=== PATIENT | female | born 1995 | race Caucasian/White ===

== ENCOUNTER → 2017-11-15 10:54 | Outpatient (CLI) | payer BC, SELFPAY | PROVIDERS: Family Provider Family Medicine; PCP Family Medicine; Visit Provider Otolaryngology Otolaryngology/Facial Plastic Surgery | DX: Z77.011 Contact with and (suspected) exposure to lead (principal) | CPT/HCPCS: 36415; 83655 ==

== ENCOUNTER → 2018-01-05 11:39 | Outpatient (CLI) | payer BC, SELFPAY ==
[2018-01-05 14:46] LABS: Absolute Lymphocyte Count 2.64 X10^3/ul (0.83-4.51); Absolute Neutrophil Count 4.1 X10^3/uL (2.0-7.7); Basophil# 0.06 X10^3/uL; Basophil% 0.8 % (0-1); Eosinophil# 0.31 X10^3/uL; Hemoglobin 12.4 g/dl (12.0-15.0); Lymphocyte # 2.64 X10^3/ul (4.0); Lymphocyte % 34.1 % (19-41); Mean Corp Hgb Conc 33.5 g/gl (32-36); Mean Corpuscular Hgb 25.7 pg (27.0-32.0); Mean Corpuscular Volume 76.6 fL (81-99); Mean Platelet Vol. 11.4 fl (6.2-12.0); Monocyte# 0.63 X10^3/uL; Monocyte% 8.1 % (0-10); Neutrophil # 4.09 X10^3/uL (2.7-7.7); Neutrophil % 52.9 % (47-70); Platelet Count 337 K/mm3 (150-450); RBC Distribution Width CV 14.9 % (11.6-14.6); RBC Distribution Width SD 40.6 fl (35.1-43.9); Red Blood Count 4.83 M/mm3 (4.2-5.4); White Blood Count 7.7 K/mm3 (4.4-11.0)
[2018-01-05 14:50] LABS: Differential Indicated SCAN CRITERIA MET; POSITIVE COUNT NO; POSITIVE DIFFERENTIAL NO; POSITIVE MORPHOLOGY YES
[2018-01-05 15:17] LABS: AST(SGOT) 16 U/L (15-37); Alanine Aminotransfer ALT/SGPT 20 U/L (13-56); Alkaline Phosphatase 79 U/L (45-117); Anion Gap 11 (5-15); BUN 9 mg/dL (7-18); Calcium,Total 9.2 mg/dL (8.5-10.1); Chloride 105 mmol/L (98-107); Creatinine, Serum 0.75 mg/dL (0.55-1.02); EST Glomerular Filtration Rate 103 mL/min (>60); Est Glom Filt Rate - Afr Amer 125 mL/min (>60); Glucose 86 mg/dL (74-106); Potassium 4.2 mmol/L (3.5-5.1); Sodium Level 140 mmol/L (136-145); T4 Free Direct 0.77 ng/dL (0.76-1.46); Thyroid Stim Hormone (TSH) 0.79 uIU/mL (0.358-3.74)
[2018-01-06 09:23] LABS: Ferritin 5 ng/mL (8-252); Iron 38 ug/dL (50-170); Iron Binding Capacity,Total 379 ug/dL (250-450)
[2018-01-06 14:32] LABS: Pathologist Review Reviewed
== END ==
PROVIDERS: Family Provider Family Medicine; PCP Family Medicine; Visit Provider Family Medicine
DX: R71.8 Other abnormality of red blood cells (principal); K62.5 Hemorrhage of anus and rectum; Z83.49 Family history of other endocrine, nutritional and metabolic diseases; F41.9 Anxiety disorder, unspecified
CPT/HCPCS: 36415; 80053; 82728; 83540; 83550; 84439; 84443; 85025

== ENCOUNTER → 2018-01-25 16:38 | Outpatient (CLI) | payer BC, SELFPAY ==
[2018-01-25 17:43] LABS: Absolute Lymphocyte Count 2.81 X10^3/ul (0.83-4.51); Absolute Neutrophil Count 3.6 X10^3/uL (2.0-7.7); Basophil# 0.05 X10^3/uL; Basophil% 0.7 % (0-1); Eosinophil# 0.36 X10^3/uL; Hematocrit 37.3 % (37-47); Hemoglobin 12.2 g/dl (12.0-15.0); Lymphocyte # 2.81 X10^3/ul (4.0); Lymphocyte % 39.1 % (19-41); Mean Corp Hgb Conc 32.7 g/gl (32-36); Mean Corpuscular Hgb 25.5 pg (27.0-32.0); Mean Corpuscular Volume 77.9 fL (81-99); Mean Platelet Vol. 10.8 fl (6.2-12.0); Monocyte# 0.33 X10^3/uL; Monocyte% 4.6 % (0-10); Neutrophil # 3.64 X10^3/uL (2.7-7.7); Neutrophil % 50.6 % (47-70); Platelet Count 354 K/mm3 (150-450); RBC Distribution Width CV 14.6 % (11.6-14.6); Red Blood Count 4.79 M/mm3 (4.2-5.4); White Blood Count 7.2 K/mm3 (4.4-11.0)
[2018-01-25 17:46] LABS: POSITIVE COUNT NO; POSITIVE DIFFERENTIAL NO; POSITIVE MORPHOLOGY NO
[2018-01-25 18:16] LABS: Ferritin 10 ng/mL (8-252); Iron 24 ug/dL (50-170); Iron Binding Capacity,Total 379 ug/dL (250-450)
== END ==
PROVIDERS: Family Provider Family Medicine; PCP Family Medicine; Referring Provider Family Medicine; Visit Provider Family Medicine
DX: E61.1 Iron deficiency (principal)
CPT/HCPCS: 36415; 82728; 83540; 83550; 85025

== ENCOUNTER → 2018-02-21 09:10 | Outpatient (CLI) | payer BC, SELFPAY ==
[2018-02-22 14:52] LABS: HPV Reflexed? NOT INDICATED
== END ==
PROVIDERS: Visit Provider Obstetrics & Gynecology
DX: Z12.4 Encounter for screening for malignant neoplasm of cervix (principal)
CPT/HCPCS: 88175; G0145

== ENCOUNTER → 2018-02-22 16:57 | Outpatient (CLI) | payer BC, SELFPAY ==
[2018-02-22 18:03] LABS: Absolute Lymphocyte Count 2.86 X10^3/ul (0.83-4.51); Absolute Neutrophil Count 4.2 X10^3/uL (2.0-7.7); Basophil# 0.07 X10^3/uL; Basophil% 0.9 % (0-1); Eosinophil# 0.42 X10^3/uL; Eosinophils% 5.3 % (0-5); Hematocrit 37.8 % (37-47); Hemoglobin 12.6 g/dl (12.0-15.0); Lymphocyte # 2.86 X10^3/ul (4.0); Lymphocyte % 35.8 % (19-41); Mean Corp Hgb Conc 33.3 g/gl (32-36); Mean Corpuscular Hgb 26.1 pg (27.0-32.0); Mean Corpuscular Volume 78.3 fL (81-99); Mean Platelet Vol. 10.8 fl (6.2-12.0); Monocyte# 0.39 X10^3/uL; Monocyte% 4.9 % (0-10); Neutrophil # 4.24 X10^3/uL (2.7-7.7); Platelet Count 341 K/mm3 (150-450); RBC Distribution Width CV 14.5 % (11.6-14.6); RBC Distribution Width SD 41.2 fl (35.1-43.9); Red Blood Count 4.83 M/mm3 (4.2-5.4)
[2018-02-22 18:14] LABS: POSITIVE COUNT NO; POSITIVE DIFFERENTIAL NO; POSITIVE MORPHOLOGY NO
[2018-02-22 18:42] LABS: Ferritin 10 ng/mL (8-252); Iron 26 ug/dL (50-170); Iron Binding Capacity,Total 345 ug/dL (250-450)
== END ==
PROVIDERS: Visit Provider Family Medicine
DX: E61.1 Iron deficiency (principal)
CPT/HCPCS: 36415; 82728; 83540; 83550; 85025

== ENCOUNTER → 2018-03-01 13:28 | Outpatient (CLI) | payer BC, SELFPAY ==
[2018-03-01 18:11] LABS: Chlamydia Trachomatis by PCR Negative (Negative); Neisserai gonorrhoeae by PCR Negative (Negative); Probe Check PASS; Sample Adequacy Control PASS; Specimen Processing Control PASS
== END ==
PROVIDERS: Visit Provider Obstetrics & Gynecology
DX: Z11.3 Encounter for screening for infections with a predominantly sexual mode of transmission (principal)
CPT/HCPCS: 87491; 87591

== ENCOUNTER → 2018-05-18 15:35 | Outpatient (CLI) | payer BC, SELFPAY ==
[2018-05-18 17:56] LABS: Ferritin 9 ng/mL (8-252); Iron 32 ug/dL (50-170); Iron Binding Capacity,Total 378 ug/dL (250-450)
--- OUTSIDE RECORDS SUMMARY | 2018-07-23 14:59 | XMS RPT_ITS ---
:1995 Author Organization OHIP Care Team Providers Name Role Phone Darek Mitchell Attending Unavailable Darek Mitchell Referring Unavailable Schinjody, Darek E Primary Care Unavailable Misha Perkins Attending Unavailable Misha Perkins Referring Unavailable Alex Olivarez Primary Care Unavailable Schinjody, Darek Valdez Attending Unavailable Schinjody, Darek Valdez Referring Unavailable Schinjody, Darek E Primary Care Unavailable Schinjody, Darek E Attending Unavailable Schinner, Darek E Referring Unavailable Schinjody, Darek Valdez Primary Care Unavailable Volodymyr Mejía Attending Unavailable Schinner, Darek Valdez Attending Unavailable Seals, Volodymyr Attending Unavailable PROBLEMS PROBLEMS DATE TYPE CONDITION / CODE ATTENDING STATUS SOURCE 03/01/2018 Unknown Z11.3 - Encounter Volodymyr Mejía Active [place] for screening for Community infections with a Hospital predominantly Repository sexual mode of transmission / Z11.3(ICD-10) 02/21/2018 Unknown Z12.4 - Encounter Volodymyr Mejía Active [place] for screening for Community malignant neoplasm [facility] cervix / Repository Z12.4(ICD-10) 01/07/2018 Unknown F41.9 - Anxiety Darek Mitchell Active [place] disorder, E Community unspecified / Hospital F41.9(ICD-10) Repository 01/07/2018 Unknown 300.00 - Anxiety Darek Mitchell Active [place] state, unspecified E Community / 300.00(ICD-9) Hospital Repository 01/07/2018 Unknown Z83.49 - Family Darek Mitchell Active [place] history of other E Community endocrine, Hospital nutritional and Repository metabolic diseases / Z83.49(ICD-10) 01/07/2018 Unknown V18.19 - Family Darek Mitchell Active [place] history of other E Community endocrine and Hospital metabolic diseases Repository / V18.19(ICD-9) 11/15/2017 Unknown Z77.011 - Contact Maddie Misha Active [place] with and Community (suspected) Hospital exposure to lead / Repository Z77.011(ICD-10) PROCEDURES PROCEDURES No Procedure Records FoundRESULTS RESULTS IRON BINDING Collected: 05/18/2018 Status: F Source: [facility],TOTAL 3:[facility] Order Comment: Order Date: 01/06/18 Order Info: 2500-7 - TIBC Order Info: 2498-4 - FE Order Info: 2276-4 - GE TYPE CODE TESTS RESULT OUT OF RANGE REFERENCE UNITS LAB L503.6075 250-450 ug/dL Normal TIBC 378 Performed By: #### L503.6075, L503.6150, L503.6550 #### [facility] [address] [place], [place], [address] IRON Collected: 05/18/2018 Status: F Source: [facility] 3:41 PM REPOSITORY Order Comment: Order Date: 01/06/18 Order Info: 2500-7 - TIBC Order Info: 2498-4 - FE Order Info: 2276-4 - GE TYPE CODE TESTS RESULT OUT OF RANGE REFERENCE UNITS LAB L503.6150 50-170 ug/dL Low IRON 32 Performed By: #### L503.6075, L503.6150, L503.6550 #### [facility] [address] [place], [address] FERRITIN Collected: 05/18/2018 Status: F Source: [facility] 3:41 PM REPOSITORY Order Comment: Order Date: 01/06/18 Order Info: 2500-7 - TIBC Order Info: 2498-4 - FE Order Info: 2276-4 - GE TYPE CODE TESTS RESULT OUT OF RANGE REFERENCE UNITS LAB L503.6550 8-252 ng/mL Normal FERRITIN 9 Performed By: #### L503.6075, L503.6150, L503.6550 #### [facility] [address] [place], [place], [address] CT/NG WCH BY PCR Collected: 03/01/2018 Status: F Source: [facility] 11:15 AM REPOSITORY TYPE CODE TESTS RESULT OUT OF RANGE REFERENCE UNITS LAB L8200.2100 Negative Normal Chlam Negative Trac PCR LAB L8200.2200 Negative Normal NG by Negative PCR Performed By: #### L8200.2000 #### [facility] [address] [place], [address] CBC W/DIFF, AUTOMATED Collected: 02/22/2018 Status: F Source: [place] 4:58 PM REPOSITORY TYPE CODE TESTS RESULT OUT OF RANGE REFERENCE UNITS LAB L100.1000 4.4-11.0 K/mm3 Normal WBC 8.0 LAB L100.1200 4.2-5.4 M/mm3 Normal RBC 4.83 LAB L100.1300 12.0-15.0 g/dl Normal HGB 12.6 LAB L100.1400 37-47 % Normal HCT 37.8 LAB L100.1500 81-99 fL Low MCV 78.3 LAB L100.1600 27.0-32.0 pg Low MCH 26.1 LAB L100.1700 32-36 g/gl Normal MCHC 33.3 LAB L100.1810 11.6-14.6 % Normal RDW CV 14.5 LAB L100.1820 35.1-43.9 fl Normal RDW SD 41.2 LAB L100.1900 150-450 K/mm3 Normal PLT 341 LAB L100.2000 6.2-12.0 fl Normal MPV 10.8 LAB L100.2100 47-70 % Normal NEUT% 53.0 LAB L100.2200 19-41 % Normal LY% 35.8 LAB L100.2300 0-10 % Normal MONO% 4.9 LAB L100.2400 0-5 % High EO% 5.3 LAB L100.2500 0-1 % Normal BASO% 0.9 LAB L100.2550 0.0-0.9 % Normal IM GRAN % 0.100 Result Comment: IG% - Immature Granulocytes (promyelocytes, myelocytes and metamyelocytes) > 1% indicates that a LEFT SHIFT is Present. LAB L100.2620 2.0-7.7 X10 3/uL Normal Absolute Neut 4.2 LAB L100.2720 0.83-4.51 X10 3/ul Normal Absolute Lymph 2.86 Performed By: #### L100.0100, L503.6075, L503.6150, L503.6550 #### [facility] [address] [place], [place], [address] IRON BINDING Collected: 02/22/2018 Status: F Source: [facility],TOTAL 4:58 PM REPOSITORY TYPE CODE TESTS RESULT OUT OF RANGE REFERENCE UNITS LAB L503.6075 250-450 ug/dL Normal TIBC 345 Performed By: #### L100.0100, L503.6075, L503.6150, L503.6550 #### [facility] [address] [place], [address] IRON Collected: 02/22/2018 Status: F Source: [place] 4:58 PM REPOSITORY TYPE CODE TESTS RESULT OUT OF RANGE REFERENCE UNITS LAB L503.6150 50-170 ug/dL Low IRON 26 Performed By: #### L100.0100, L503.6075, L503.6150, L503.6550 #### [facility] [address] [place], [address] FERRITIN Collected: 02/22/2018 Status: F Source: [place] 4:58 PM REPOSITORY TYPE CODE TESTS RESULT OUT OF RANGE REFERENCE UNITS LAB L503.6550 8-252 ng/mL Normal FERRITIN 10 Performed By: #### L100.0100, L503.6075, L503.6150, L503.6550 #### [facility] [address] [place], [address] PAP I-G W/RFX HRHPV Collected: 02/21/2018 Status: F Source: [facility] 8:30 AM REPOSITORY Order Comment: CYTOLOGY INFORMATION: - CLINICAL INFORMATION: - DATE LMP/MENOPAUSE: NURSING LMP - COLLECTION VIAL: Thin Prep Vial - RETAIL TEAM MEMBER SOURCE: CERVICAL/ENDOCERVICAL - COLLECTION TECHNIQUE: BRUSH/SPATULA Specimen Comment: [id number] Specimen Comment: Source.............Cervix;Endocervix Specimen Comment: Other..............Lactating Specimen Comment: No. of containers..01 ThinPrep Vial TYPE CODE TESTS RESULT OUT OF RANGE REFERENCE UNITS LAB L7400.0800 . Normal DIAGN Comment Result Comment: NEGATIVE FOR INTRAEPITHELIAL LESION AND MALIGNANCY. LAB L7400.0900 . Normal ADEQ Comment Result Comment: Satisfactory for evaluation. Endocervical and/or squamous metaplastic cells (endocervical component) are present. LAB L7400.1400 . Normal PERFORM Comment Result Comment: Andreas Johnson, Personnel Scheduler (ASCP) LAB L7400.2575 . Normal TEST METHOD Comment Result Comment: This liquid based ThinPrep(R) pap test was screened with the use of an image guided system. LAB L7400.2600 . Normal . COMM LAB L7400.2700 . Normal PAPSMR Comment Result Comment: The Pap smear is a screening test designed to aid in the detection of premalignant and malignant conditions of the uterine cervix. It is not a diagnostic procedure and should not be used as the sole means of detecting cervical cancer. Both false-positive and false-negative reports do occur. LAB L7400.2800 . Normal HPV RFLX Comment Result Comment: The HPV DNA reflex criteria were not met with this specimen result therefore, no HPV testing was performed. Performed at: [facility] [address] [id number] Assistant Film Editor: Lisseth Valdez MD, Phone: [phone] Performed By: #### L7400.0350 #### [facility] (refer to report for specific site) refer to report for address and phone number CBC W/DIFF, AUTOMATED Collected: 01/25/2018 Status: F Source: [place] 4:41 PM REPOSITORY TYPE CODE TESTS RESULT OUT OF RANGE REFERENCE UNITS LAB L100.1000 4.4-11.0 K/mm3 Normal WBC 7.2 LAB L100.1200 4.2-5.4 M/mm3 Normal RBC 4.79 LAB L100.1300 12.0-15.0 g/dl Normal HGB 12.2 LAB L100.1400 37-47 % Normal HCT 37.3 LAB L100.1500 81-99 fL Low MCV 77.9 LAB L100.1600 27.0-32.0 pg Low MCH 25.5 LAB L100.1700 32-36 g/gl Normal MCHC 32.7 LAB L100.1810 11.6-14.6 % Normal RDW CV 14.6 LAB L100.1820 35.1-43.9 fl Normal RDW SD 41.0 LAB L100.1900 150-450 K/mm3 Normal PLT 354 LAB L100.2000 6.2-12.0 fl Normal MPV 10.8 LAB L100.2100 47-70 % Normal NEUT% 50.6 LAB L100.2200 19-41 % Normal LY% 39.1 LAB L100.2300 0-10 % Normal MONO% 4.6 LAB L100.2400 0-5 % Normal EO% 5.0 LAB L100.2500 0-1 % Normal BASO% 0.7 LAB L100.2550 0.0-0.9 % Normal IM GRAN % 0.000 Result Comment: IG% - Immature Granulocytes (promyelocytes, myelocytes and metamyelocytes) > 1% indicates that a LEFT SHIFT is Present. LAB L100.2620 2.0-7.7 X10 3/uL Normal Absolute Neut 3.6 LAB L100.2720 0.83-4.51 X10 3/ul Normal Absolute Lymph 2.81 Performed By: #### L100.0100, L503.6075, L503.6150, L503.6550 #### [facility] [address] [place], [place], [address] IRON BINDING Collected: 01/25/2018 Status: F Source: [facility],TOTAL 4:41 PM REPOSITORY TYPE CODE TESTS RESULT OUT OF RANGE REFERENCE UNITS LAB L503.6075 250-450 ug/dL Normal TIBC 379 Performed By: #### L100.0100, L503.6075, L503.6150, L503.6550 #### [facility] [address] [place], [place], [address] IRON Collected: 01/25/2018 Status: F Source: [place] 4:41 PM REPOSITORY TYPE CODE TESTS RESULT OUT OF RANGE REFERENCE UNITS LAB L503.6150 50-170 ug/dL Low IRON 24 Performed By: #### L100.0100, L503.6075, L503.6150, L503.6550 #### [facility] [address] [place], [place], [address] FERRITIN Collected: 01/25/2018 Status: F Source: [place] 4:41 PM REPOSITORY TYPE CODE TESTS RESULT OUT OF RANGE REFERENCE UNITS LAB L503.6550 8-252 ng/mL Normal FERRITIN 10 Performed By: #### L100.0100, L503.6075, L503.6150, L503.6550 #### [facility] [address] [place], [place], [address] CBC W/DIFF, AUTOMATED Collected: 01/05/2018 Status: C Source: [facility] 11:43 AM REPOSITORY TYPE CODE TESTS RESULT OUT OF RANGE REFERENCE UNITS LAB L100.1000 4.4-11.0 K/mm3 Normal WBC 7.7 LAB L100.1200 4.2-5.4 M/mm3 Normal RBC 4.83 LAB L100.1300 12.0-15.0 g/dl Normal HGB 12.4 LAB L100.1400 37-47 % Normal HCT 37.0 LAB L100.1500 81-99 fL Low MCV 76.6 LAB L100.1600 27.0-32.0 pg Low MCH 25.7 LAB L100.1700 32-36 g/gl Normal MCHC 33.5 LAB L100.1810 11.6-14.6 % High RDW CV 14.9 LAB L100.1820 35.1-43.9 fl Normal RDW SD 40.6 LAB L100.1900 150-450 K/mm3 Normal PLT 337 LAB L100.2000 6.2-12.0 fl Normal MPV 11.4 LAB L100.2100 47-70 % Normal NEUT% 52.9 LAB L100.2200 19-41 % Normal LY% 34.1 LAB L100.2300 0-10 % Normal MONO% 8.1 LAB L100.2400 0-5 % Normal EO% 4.0 LAB L100.2500 0-1 % Normal BASO% 0.8 LAB L100.2550 0.0-0.9 % Normal IM GRAN % 0.100 Result Comment: IG% - Immature Granulocytes (promyelocytes, myelocytes and metamyelocytes) > 1% indicates that a LEFT SHIFT is Present. LAB L100.2620 2.0-7.7 X10 3/uL Normal Absolute Neut 4.1 LAB L100.2720 0.83-4.51 X10 3/ul Normal Absolute Lymph 2.64 LAB L100.5200 SMUDG Normal Result Comment: SCANNED LAB L100.9900 Normal Reviewed PATH REV Result Comment: Microcytosis. Clinical correlation necessary. Ben Aguilar M.D. 01/06/18 AMENDED REPORT 01/06/18 1431 PATH REV previously reported as: May foll Performed By: #### L100.0100, L500.4050, L501.9520, L506.0400 #### [facility] [address] [place], [address] COMPREHENSIVE METABOLIC Collected: 01/05/2018 Status: F Source: [facility] ALBERTO 11:43 AM REPOSITORY Order Comment: PLEASE ADD IBC AND GE TO BLOOD DRAWN 01/05/18 PER Order Date: 01/04/18 Order Info: 0786-1 - CMP Order Info: 3016-3 - TSH Order Info: 3024-7 - T4F TYPE CODE TESTS RESULT OUT OF RANGE REFERENCE UNITS LAB L501.0100 74-106 mg/dL Normal GLU 86 Result Comment: Please note revised GLUCOSE reference range effective 2017. LAB L501.1000 7-18 mg/dL Normal BUN 9 LAB L501.1100 0.55-1.02 mg/dL Normal CREAT,SERUM 0.75 Result Comment: The validity of the calculated GFR AND GFRAA in patients over 70 years has not been determined. Clinical correlation is essential. LAB L501.1110 >60 mL/min Normal EST GFR 103 Result Comment: Non- GFR Calc LAB L501.1115 >60 mL/min Normal EST GFR - AA 125 Result Comment: GFR Calc LAB L501.1300 10-20 RATIO Normal BUN/CRE 12.0 LAB L501.1500 6.4-8.2 g/dL T Normal PROT 8.0 LAB L501.1800 3.2-5.0 g/dL Normal ALB 4.0 LAB L501.1950 2.2-4.2 g/dL Normal GLOB 4.0 LAB L501.2000 0.9-2.4 RATIO Normal A/G 1.0 LAB L501.2200 8.5-10.1 mg/dL CA Normal 9.2 LAB L501.4100 15-37 U/L Normal AST 16 LAB L501.4305 45-117 U/L Normal ALK P 79 LAB L501.4405 13-56 U/L Normal ALT 20 LAB L501.4600 0.20-1.00 mg/dL T Normal BILI 0.20 LAB L501.5300 136-145 mmol/L NA Normal 140 LAB L501.5600 3.5-5.1 mmol/L K Normal 4.2 LAB L501.5900 98-107 mmol/L CL Normal 105 LAB L501.6100 21.0-32.0 mmol/L Normal CO2 24.0 LAB L501.6200 5-15 Normal GAP 11 Performed By: #### L100.0100, L500.4050, L501.9520, L506.0400 #### [facility] [address] [place], [address] THYROID STIM HORMONE Collected: 01/05/2018 Status: F Source: [facility] (TSH) 11:43 AM REPOSITORY Order Comment: PLEASE ADD IBC AND GE TO BLOOD DRAWN 01/05/18 PER Order Date: 01/04/18 Order Info: 0786-1 - CMP Order Info: 3016-3 - TSH Order Info: 3024-7 - T4F TYPE CODE TESTS RESULT OUT OF RANGE REFERENCE UNITS LAB L501.9520 0.358-3.74 uIU/mL Normal TSH 0.79 Performed By: #### L100.0100, L500.4050, L501.9520, L506.0400 #### [facility] [address] [place], [address] T4 FREE DIRECT Collected: 01/05/2018 Status: F Source: [facility] 11:43 AM REPOSITORY Order Comment: PLEASE ADD IBC AND GE TO BLOOD DRAWN 01/05/18 PER Order Date: 01/04/18 Order Info: 0786-1 - CMP Order Info: 3016-3 - TSH Order Info: 3024-7 - T4F TYPE CODE TESTS RESULT OUT OF RANGE REFERENCE UNITS LAB L506.0400 0.76-1.46 ng/dL Normal T4 FREE 0.77 DIRECT Performed By: #### L100.0100, L500.4050, L501.9520, L506.0400 #### [facility] [address] [place], [address] IRON+IRON BINDING Collected: 01/05/2018 Status: F Source: [facility] 11:43 AM REPOSITORY Order Comment: PLEASE ADD IBC AND GE TO BLOOD DRAWN 01/05/18 PER Order Date: 01/04/18 Order Info: 0786-1 - CMP Order Info: 3016-3 - TSH Order Info: 3024-7 - T4F TYPE CODE TESTS RESULT OUT OF RANGE REFERENCE UNITS LAB L503.6075 250-450 ug/dL TIBC Normal 379 LAB L503.6150 50-170 ug/dL Low IRON 38 LAB L503.6250 15.0-55.0 % Low IRON SATURATION 10.0 Performed By: #### L503.6030, L503.6550 #### [facility] [address] [place], [place], [address] FERRITIN Collected: 01/05/2018 Status: F Source: [facility] 11:43 AM REPOSITORY Order Comment: PLEASE ADD IBC AND GE TO BLOOD DRAWN 01/05/18 PER Order Date: 01/04/18 Order Info: 0786-1 - CMP Order Info: 3016-3 - TSH Order Info: 3024-7 - T4F TYPE CODE TESTS RESULT OUT OF REFERENCE UNITS RANGE LAB L503.6550 8-252 ng/mL Low FERRITIN 5 Performed By: #### L503.6030, L503.6550 #### [facility] [address] [place], [place], [address] LEAD, BLOOD ADULT Collected: 11/15/2017 Status: F Source: [facility] 16+YRS 10:59 AM REPOSITORY TYPE CODE TESTS RESULT OUT OF RANGE REFERENCE UNITS LAB L3100.6450 Normal LEAD *Form Result Comment: TEST RESULT UNITS REFERENCE INTERVAL LEAD, BLOOD (ADULT) NONE DETECTED ug/dL 0 - 19 Analysis by inductively coupled plasma/mass spectrometry (ICP/MS) Effective December 06, 2017 the reference interval for Lead, Blood (Adult) will be changing to: 0 - 4 Environmental Exposure: WHO Recommendation <20 Occupational Exposure: OSHA Lead Std 40 VONNIE 30 Detection Limit = 1 Performed at: [address] [id number] Assistant Film Editor: Scott Sainz PhD, Phone: [phone] Performed By: #### L3100.6450 #### [facility] (refer to report for specific site) refer to report for address and phone number ALLERGIES ALLERGIES DATE TYPE / CODE NAME / CODE REACTION SEVERITY SOURCE 10/19/2016 Drug No Known Unknown [place] Allergy/4160 Allergies/F00 Hospital 11102(SNOMED 1349069(RXNOR Repository CT) M) ENCOUNTERS ENCOUNTERS ADMIT/DISCHARGE ACCOUNT ADMITTING ENCOUNTER LOCATION SOURCE NUMBER CLASS 05/18/2018 [id number] Ambulatory [place] 8 [facility] ing:MTLAB Repository 03/01/2018 [id number] Ambulatory [place] 5 [facility] ing:LABSPEC Repository 02/22/2018 [id number] Ambulatory [place] 8 [facility] ing:MFPLAB Repository 02/21/2018 [id number] Ambulatory [place] 5 [facility] ing:LABSPEC Repository 01/25/2018 [id number] Ambulatory [place] 9 [facility] ing:MTLAB Repository 01/05/2018 [id number] Ambulatory [place] 4 [facility] ing:MTLAB Repository 11/15/2017 [id number] Ambulatory [place] 7 [facility] ing:LAB Repository PAYERS PAYERS ENCOUNTER GUARANTOR PAYER SUBSCRIBER SOURCE 05/18/2018 ED [id number] Primary YAYO J [place] N [place] Insurance:ANTHEMPolic YOHODOB: [facility] Number: [id number] Hospital [address]Oqr: 330 [id number] Repository [phone] () Date:[id number] [address]OU: 05/18/2018 Secondary NOT GIVENUNK [place] Insurance:SELF PAY [facility] Number: Effective Repository Date:2018-05-18 03/01/2018 ED LAMB852 Primary YAYO J [place] N [place] Insurance:ANTHEMPolic YOHODOB: [facility] Number: [id number] Hospital [address]Wua: 330 [id number] Repository [phone] () Date:[id number] [address] [place] [address] [place] [address]SV: 03/01/2018 Secondary NOT GIVENUNK [place] Insurance:SELF PAY [facility] Number: Effective Repository Date:2018-03-01 02/22/2018 ED FLORESHO852 Primary YAYO J [place] Insurance:ANTHEMPolic [place] Number: [id number] Hospital [address]Viy: (330) [id number] Repository [phone] () Date:8219-17-73LW [address] [place] [address] [place] [address]HG: 02/22/2018 Secondary NOT GIVENUNK [place] Insurance:SELF PAY [facility] Number: Effective Repository Date:2018-02-22 02/21/2018 ED FLORESHO852 Primary YAYO Bill [place] N [place] Insurance:ANTHEMPolic [place] Number: [id number] [facility] [address]Ziv: (330) [id number] Repository [phone] () Date:[id number] [address] [place] [address] [place] [address]RA: 02/21/2018 Secondary NOT GIVENUNK [place] Insurance:SELF PAY [facility] Number: Effective Repository Date:2018-02-21 01/25/2018 ED FLORESHO852 Primary YAYO J [place] N [place] Insurance:ANTHEMPolic [place] Number: [id number] [facility] [address]Ttb: (330) [id number] Repository [phone] () Date:0781-01-89[address] [address]EJ: 01/25/2018 Secondary NOT GIVENUNK [place] Insurance:SELF PAY [facility] Number: Effective Repository Date:2018-01-25 01/05/2018 ED FLORESHO852 Primary YAYO J [place] N [place] Insurance:ANTHEMPolic [place]: [id number] [facility] [address]Qem: 330 [id number] Repository [phone] () Date:7350-77-52[address], [place] [address]DW: 01/05/2018 Secondary NOT GIVENUNK [place] Insurance:SELF PAY [facility] Number: Effective Repository Date:2018-01-05 11/15/2017 ED LAMB852 Primary Yayo LambDOB: [place] Insurance:ANTHEMPolic [id number] [facility] pare[facility] y Number: [facility] [address]Sbh: (330 [id number] Repository [phone] () Date:4815-29-94[address], [place] [address]KV: 11/15/2017 Secondary NOT GIVENUNK [place] Insurance:SELF PAY [facility] Number: Effective Repository Date:2017-11-15
== END ==
PROVIDERS: Family Provider Family Medicine; PCP Family Medicine; Referring Provider Family Medicine; Visit Provider Family Medicine
DX: R71.8 Other abnormality of red blood cells (principal)
CPT/HCPCS: 36415; 82728; 83540; 83550

== ENCOUNTER → 2018-12-27 10:39 | Outpatient (CLI) | payer OTHER, BC, SELFPAY ==
[2018-12-27 09:19] VITALS: BMI 31.6
[2018-12-27 10:57] LABS: Absolute Lymphocyte Count 2.63 X10^3/uL (0.83-4.51); Absolute Neutrophil Count 4.7 X10^3/uL (2.0-7.7); Basophil# 0.06 X10^3/uL; Basophil% 0.7 % (0-1); Eosinophil# 0.21 X10^3/uL; Eosinophils% 2.6 % (0-5); Hematocrit 38.6 % (37-47); Hemoglobin 13.5 g/dL (12.0-15.0); Lymphocyte # 2.63 X10^3/ul (4.0); Lymphocyte % 32.4 % (19-41); Mean Corpuscular Hgb 28.2 pg (27.0-32.0); Mean Corpuscular Volume 80.8 fL (81-99); Mean Platelet Vol. 10.7 fl (6.2-12.0); Monocyte# 0.47 X10^3/uL; Monocyte% 5.8 % (0-10); NRBC Flagged by Analyzer 0 % (0-5); Neutrophil # 4.73 X10^3/uL (2.7-7.7); Neutrophil % 58.3 % (47-70); Platelet Count 307 K/mm3 (150-450); Red Blood Count 4.78 M/mm3 (4.2-5.4); White Blood Count 8.1 K/mm3 (4.4-11.0)
[2018-12-27 12:12] LABS: HIV - WCH Non-Reactive (Nonreactive); Rubella IgG 38.1 IU/mL
[2018-12-27 16:45] LABS: Chlamydia Trachomatis by PCR Negative (Negative); Neisserai gonorrhoeae by PCR Negative (Negative); Probe Check PASS; Sample Adequacy Control PASS; Specimen Processing Control PASS
[2018-12-30 00:53] LABS: Rapid Plasmin Reagin (RPR) NONREACTIVE (NONREACTIVE)
== END ==
PROVIDERS: Nurse Practitioner Women's Health; Family Provider Family Medicine; PCP Family Medicine; Referring Provider Obstetrics & Gynecology; Visit Provider Obstetrics & Gynecology
DX: Z34.80 Encounter for supervision of other normal pregnancy, unspecified trimester (principal)
CPT/HCPCS: 36415; 85025; 86592; 86703; 86762; 86850; 86900; 86901; 87086; 87088; 87491; 87591

== ENCOUNTER → 2019-01-27 14:37 | Outpatient (CLI) | payer BC, SELFPAY ==
[2019-01-27 14:20] VITALS: BMI 31.6
[2019-01-27 16:28] LABS: Hepatitis B Surface Antigen Non-Reactive (Nonreactive)
== END ==
PROVIDERS: Family Provider Family Medicine; PCP Family Medicine; Referring Provider Obstetrics & Gynecology; Visit Provider Obstetrics & Gynecology
DX: Z34.80 Encounter for supervision of other normal pregnancy, unspecified trimester (principal)
CPT/HCPCS: 36415; 87340

== ENCOUNTER → 2019-03-10 15:30 | Outpatient (CLI) | payer OTHER, BC, SELFPAY ==
[2019-01-27 14:20] VITALS: BMI 31.6
== END ==
PROVIDERS: Family Provider Family Medicine; PCP Family Medicine; Referring Provider Otolaryngology Otolaryngology/Facial Plastic Surgery; Visit Provider Otolaryngology Otolaryngology/Facial Plastic Surgery
DX: J32.9 Chronic sinusitis, unspecified (principal); J02.9 Acute pharyngitis, unspecified
CPT/HCPCS: 87070; 87077; 87205

== ENCOUNTER → 2019-03-20 13:56 | Outpatient (CLI) | payer OTHER, BC, SELFPAY ==
[2019-03-17 14:29] VITALS: BMI 31.6
--- NOTE | 2019-03-20 13:59 | US_ITS ---
STUDY: SECOND AND THIRD TRIMESTER OBSTETRICAL ULTRASOUND REASON FOR EXAM: Female, 23 years old. Anatomy. LMP: November 06, 2018. TECHNIQUE: Transabdominal TECHNICAL QUALITY: Adequate. PRIOR ULTRASOUND: None. FINDINGS: There is a single intrauterine fetus. The fetus is in a breech presentation. There is demonstrated cardiac activity with a heart rate of 149 bpm. There is a normal amniotic fluid volume. The largest amniotic fluid pocket measures 3.14 cm. The placenta is anterior in location and is not low lying. There are Grade 0 placental changes. The cervix measures 4.02 in length. The bilateral adnexal regions are normal. BIOMETRY: BPD: 4.1 cm: 18 weeks, 4 days HC: 16.36 cm: 19 weeks, 1 days AC: 14.14 cm: 19 weeks, 4 days FL: 3.1 cm: 19 weeks, 5 days CI: 69 FL/BPD: 76 FL/HC: FL/AC: 22 HC/AC: 1.16 age by current US: 19 weeks, 2 days. VALENTIN by current US: August 12, 2019. Estimated weight: 295 grams, +/- 43 grams, 66 %. Age by LMP: 19 weeks, 1 days. VALENTIN by LMP: August 13, 2019. ANATOMY: Gender: Indeterminant Cranium: Normal lateral ventricles. Normal choroid plexus. Normal cerebellum. Normal cisterna magna. Normal face, nose and lips. Chest: Normal 4-chamber heart. Abdomen/Pelvis: Normal diaphragm. Normal stomach. Normal abdominal wall. Normal cord insertion. Normal 3 vessel cord. Normal kidneys. Normal bladder. Spine: Normal cervical spine. Normal thoracic spine. Normal lumbar spine. Normal sacrum. Extremities: Normal bilateral upper extremities. Normal bilateral lower extremities. US/OB Anatomy Scan IMPRESSION: 1. Live single intrauterine 19 weeks, 2 days. VALENTIN is August 12, 2019. 2. EFW of 295 g. 3. Adequate amniotic fluid. 4. Anterior grade 0 placenta. 5. Breech presentation. 6. No evidence of anatomic abnormality. Electronically Signed: Robert Cortez DO at 19:42 EST Tel [phone], Service support ,
== END ==
PROVIDERS: Family Provider Family Medicine; PCP Family Medicine; Referring Provider Nurse Practitioner Women's Health; Visit Provider Nurse Practitioner Women's Health
DX: O32.1XX0 Maternal care for breech presentation, not applicable or unspecified (principal); Z3A.19 19 weeks gestation of pregnancy
CPT/HCPCS: 76805

== ENCOUNTER → 2019-05-19 15:30 | Outpatient (CLI) | payer OTHER, BC, SELFPAY ==
[2019-04-21 15:23] VITALS: BMI 31.6
[2019-05-19 16:08] LABS: Absolute Lymphocyte Count 2.38 X10^3/uL (0.83-4.51); Absolute Neutrophil Count 5.7 X10^3/uL (2.0-7.7); Basophil# 0.05 X10^3/uL; Basophil% 0.6 % (0-1); Eosinophil# 0.25 X10^3/uL; Eosinophils% 2.8 % (0-5); Hematocrit 36.3 % (37-47); Hemoglobin 12.3 g/dL (12.0-15.0); Lymphocyte # 2.38 X10^3/ul (4.0); Lymphocyte % 26.5 % (19-41); Mean Corp Hgb Conc 33.9 g/dL (32-36); Mean Corpuscular Hgb 28.2 pg (27.0-32.0); Mean Corpuscular Volume 83.3 fL (81-99); Mean Platelet Vol. 10.8 fl (6.2-12.0); Monocyte# 0.53 X10^3/uL; Monocyte% 5.9 % (0-10); NRBC Flagged by Analyzer 0 % (0-5); Neutrophil # 5.72 X10^3/uL (2.7-7.7); Neutrophil % 63.5 % (47-70); Platelet Count 246 K/mm3 (150-450); RBC Distribution Width CV 13.6 % (11.6-14.6); RBC Distribution Width SD 40.7 fl (35.1-43.9); Red Blood Count 4.36 M/mm3 (4.2-5.4)
[2019-05-19 16:34] LABS: Glucose Challenge Gest 1H 50g 152 mg/dL (70-140)
[2019-05-19 17:07] LABS: Hepatitis B Surface Antigen Non-Reactive (Nonreactive)
== END ==
PROVIDERS: Nurse Practitioner Women's Health; PCP Family Medicine; Referring Provider Obstetrics & Gynecology; Visit Provider Obstetrics & Gynecology
DX: Z34.80 Encounter for supervision of other normal pregnancy, unspecified trimester (principal)
CPT/HCPCS: 36415; 82950; 85025; 87340

== ENCOUNTER → 2019-05-26 06:43 | Outpatient (CLI) | payer OTHER, SELFPAY ==
[2019-05-19 16:04] VITALS: BMI 31.6
[2019-05-24 09:39] VITALS: BMI 31.6
[2019-05-26 07:41] LABS: Glucose GTT-Gestation. Fasting 82 mg/dL (<105)
[2019-05-26 08:45] LABS: Glucose GTT-Gestational 1 Hr 144 mg/dL (<190)
[2019-05-26 09:35] LABS: Glucose GTT-Gestational 2 Hr 142 mg/dL (<165)
[2019-05-26 10:47] LABS: Glucose GTT-Gestational 3 Hr 114 L (<145)
== END ==
PROVIDERS: PCP Family Medicine; Referring Provider Obstetrics & Gynecology; Visit Provider Obstetrics & Gynecology
DX: O99.810 Abnormal glucose complicating pregnancy (principal); Z3A.00 Weeks of gestation of pregnancy not specified
CPT/HCPCS: 36415; 82951; 82952

== ENCOUNTER → 2019-07-21 16:37 | Outpatient (CLI) | payer OTHER, SELFPAY ==
[2019-07-21 16:17] VITALS: BMI 31.6
== END ==
PROVIDERS: PCP Family Medicine; Referring Provider Obstetrics & Gynecology; Visit Provider Obstetrics & Gynecology
DX: Z34.93 Encounter for supervision of normal pregnancy, unspecified, third trimester (principal); Z3A.36 36 weeks gestation of pregnancy
CPT/HCPCS: 87081

== ENCOUNTER 2019-08-07 09:40 | Inpatient (IN) | payer OTHER, SELFPAY ==
[2019-05-19 16:04] VITALS: BMI 31.6
[2019-07-28 15:55] VITALS: BMI 31.6
[2019-08-07] VITALS (18 sets, daily range): BP systolic 91–125; BP diastolic 39–96; PULSE 80–105; RESP 14–18; TEMP 35.9–37.2; O2SAT 97–100; BMI 33.5
--- NOTE | 2019-08-07 09:37 | OP.PCM_ITS ---
Problem List (1) Abnormal glucose affecting Status: Acute Comment: normal 3 hour (2) History of Status: Acute Comment: #1 failure to descend #2 Repeat - c/s scheduled for 08/07/2019 plan skin tag removals at time (3) History of depression Status: Acute Comment: zoloft after 2nd baby Has used buspar in past (4) Status: Acute Qualifiers: Weeks of gestation: 37 weeks Qualified Code(s): Z3A.37 - 37 weeks gestation of Comment: Declines carrier, NIPT, and NTD screening. anatomy normal (5) Supervision of other normal , antepartum Status: Acute Comment: PRR VALENTIN:08/13/19 girl Viry PC: Medina Kerns Spouse: Alvin Delivery Classification: Scheduled Type of Anesthesia:: Spinal Special Medications: leyla Implants Used: none Date of Procedure: 08/07/19 Pre-Operative Diagnosis: previous csection Post-Operative Diagnosis: same Indications for : Repeat Elective Description of Procedure: The patient is a 23-year-old G3, P2 at 39 weeks presented for [repeat] C- section. Spinal anesthesia was placed without difficulty. Dior catheter was placed. The patient was placed in the dorsal supine position with leftward tilt. Patient was prepped and draped in the normal sterile fashion. Pfannenstiel skin incision was made with the scalpel and carried through to the underlying layer of fascia with the scalpel. Fascia was nicked in the midline and the incision extended laterally. The rectus bellies were dissected off superiorly and inferiorly with out complication both sharply and bluntly. Significant scar tissue was encountered but taken down without complication. The peritoneum was entered digitally. The incision was stretched and a low transverse uterine incision was made with the scalpel. The infant's head was delivered atraumatically followed by the anterior and posterior shoulders without complication the rest of the delivered. The cord was clamped and cut and the infant was handed off to awaiting nurse. The placenta was delivered spontaneously immediately following and was noted to be intact and have a three-vessel cord. The uterus was exteriorized cleared of all clots and debris, and the incision was closed in a double layer closure using #1 Monocryl. The lower uterine segment was noted to be significantly thinned and particularly upon closure of the incision the integrity of the lower uterine segment was diminished but rebuilt as much as possible with a double layer closure. The ovaries and fallopian tubes were noted to be within normal limits but with adhesions of the small bowel and epiploica around the left side of the uterus and around the left adnexa. This was taken down sharply and with the Bovie. Leyla was placed over the area and excellent hemostasis was noted. The uterus was returned to the maternal abdomen and gutters were cleared of all clots and debris. The peritoneum was closed with 3-0 Monocryl in a running fashion. Gloves were changed prior to fascial closure. Fascia was closed with 0 PDS in a running fashion. Subcutaneous tissue was copiously irrigated and the skin was closed with 3-0 Monocryl in a subcuticular fashion. Mepilex dressing was applied without complication. Patient was taken to recovery in stable condition. It was discussed with the patient that based on the clinical information obtained during this encounter, combined with her history, at this time I would recommend cesareans for future deliveries if further pregnancies are desired. Amniotic Membrane Rupture Type: Artificial Amniotic Fluid Description: Clear Placenta Disposition: [facility] Specimen(s) sent to pathology: none Fluids Replaced: crystalloid Esitmated Blood Loss (ml): 800 Infant Gender: Female Delayed cord clamping: Yes Antibiotic Given: Ancef 2 grams IV x1 Pt instructed on risks of surgery: Bleeding, Anesthesia Risks, Infection, Need for Future C-Sections, Injury to surrounding structure(s) including bowel and bladder Complications: None - Admit VTE Documentation VTE Present on Admission: No VTE Mechan Device Prophylaxis: SCD's Multi Select Codes - Urinary/Genital Urinary/Genital CPT Codes: 19597 Delivery [facility]
--- NOTE | 2019-08-07 09:38 | HP.PCM_ITS ---
- Problem List (1) Abnormal glucose affecting Status: Acute Comment: normal 3 hour (2) History of Status: Acute Comment: #1 failure to descend #2 Repeat - c/s scheduled for 08/07/2019 plan skin tag removals at time (3) History of depression Status: Acute Comment: zoloft after 2nd baby Has used buspar in past (4) Status: Acute Qualifiers: Weeks of gestation: 37 weeks Qualified Code(s): Z3A.37 - 37 weeks gestation of Comment: Declines carrier, NIPT, and NTD screening. anatomy normal (5) Supervision of other normal , antepartum Status: Acute Comment: PRR VALENTIN:08/13/19 girl Viry PC: Medina Kerns Spouse: Alvin History and Physical Date of Admission: 08/07/19 Intake Vital Signs 07/28/19 BMI 31.6 07/28/19 Height 5 ft 3.25 in 07/28/19 Weight: 188 lb 07/28/19 BMI 33.0 07/28/19 BP 124/88 H Intake Visit Reasons: est ob 37w Chief Complaint: est ob Formula Room Worker Required: No Is patient in pain?: No Allergies No Known Allergies Allergy (Verified 07/28/19 15:54) Medications vits,calcium no.78-iron fumarate-folic acid 29 mg-1 mg tablet 1 tab PO DAILY #90 tab 12/27/18 [Rx Confirmed 07/28/19] Last Menstral Period: 10/28/18 Zika: Zika virus screening: Negative : No PFSH PFSH Medical History Crohn disease (Acute) Surgical History deliv due to previous difficult deliv, deliv, curr hospitaliz (Acute) Left ovarian cyst (Acute) [place] teeth extracted (Acute) Family History Mother Diabetes Thyroid disorder Social History (Updated 07/28/19 @ 16:[address] Bertha Orta MD) number of children: 2 current occupational status: employed current occupation: [employer]. Smoking Status: Never smoker alcohol intake: never substance use type: does not use caffeine: Yes Type: tea Number of servings: 1 seatbelt use: always do you feel safe at home: Yes additional social history: Alvin Daisha Pregancy History 2 3 Elective abortions Hx Para 2 Spontaneous abortions Hx # Term Pregnancies 2 Ectopic pregnancies Hx # Pregnancies Multiple births # of living children 2 Past Pregnancies Del. Date Name GA/Weeks Outcome Route Bth Weight Infant Gen Labor Lgth Anesthesia Del Locatn Provider FOB 10/31/15 Luis F 40 live - full term 8 lb s 14 oz. Male general [facility] Dr Mejía 10/19/16 Medina 39 live - full term 8 lb s 1 oz. Female spinal [facility] Dr. Mejía HPI est ob 37w: Details: ED MACE is a 23 year old who presents for RLTCS. OB Visit VALENTIN Calculator Estimated Delivery Date Method Current WG Current Estimate 08/13/19 Ultrasound #1 37w 5d Other Estimates 08/04/19 LMP (Certain) 39w 0d Expected Delivery Route/Plan RLTCS Labor Preferences- labor support person: [] pain management options preferred: [] cut cord/dad catch: [] : [] PP control planned: [] discussed possible routes of delivery and associated risks: [] special requests: [] Specific Issue/Plans flu vaccine: declines tdap vaccine: declined rhogam: LARC form signed: na movement and labor precautions reviewed. Problem list reviewed and updated with the most current plan of care details and appropriate orders placed. Relevant counseling for the gestational age provided. Continue routine care and follow up unless otherwise noted in visit notes/problem list details Initial Weight: Not Recorded Date EGA Weight BP Urine Prot Glucose FHR FuHt Pres Dilation Effaced St Visit Note 01/27/19 11w 5d 170 lb 106/62 Negative Negative 150 03/17/19 18w 5d 174 lb 118/68 Negative Negative 146 No VB, LOF. Feeling FM now. 04/21/19 23w 5d 180 lb 116/68 Negative Negative 152 23 Good FM. NO VB, LOF 05/19/19 27w 5d 183 lb 122/62 Negative Negative 140 28 SM- no vb lof good fm no regular ctx declined tdap 05/24/19 28w 3d 182 lb 6 oz 122/74 139 MH-work in for tender lump vag area-erythemadous skin tag, contain fluid, tender to touch. inner left groin. States skin tag there for years. 06/16/19 31w 5d 184 lb 8 oz 118/72 Negative Negative 140 32 SM- no vb lof good fm no regular ctx 06/30/19 33w 5d 189 lb 113/70 140 34 SM- no vb lof good fm no regular ctx 07/14/19 35w 5d 189 lb 112/72 Negative Negative 140 36 SM- no vb lof good fm no regular ctx 07/21/19 36w 5d 189 lb 126/76 Negative Negative 140 37 Cephalic SM- no vb lof good fm no regular ctx 07/28/19 37w 5d 188 lb 124/88 Negative Negative 130 39 Cephalic SM- no vb lof fm no regular ctx Notes Visit Date: 07/28/19 ??No visit notes to display Visit Date: 07/21/19 ??No visit notes to display Visit Date: 07/14/19 ??No visit notes to display Visit Date: 06/30/19 ??No visit notes to display Visit Date: 06/16/19 ??No visit notes to display Visit Date: 05/24/19 ??No visit notes to display Visit Date: 05/19/19 ??No visit notes to display Visit Date: 04/21/19 ??No visit notes to display Visit Date: 03/17/19 ??No VB, LOF. Feeling FM now. ??CARON Miranda on 03/17/19 Visit Date: 01/27/19 ??No visit notes to display ACOG First Trimester First Trimester: Desire for , Alcohol, Tobacco Cessation, Illicit/Recreational Drug/Substance Use, Intimate Partner Violence, Barriers to care, Unstable Housing, Communication Barriers, Environmental/Work Hazards, Anticipated Course of Care, Toxoplasmosis Precations, Use of Any medications, Sexual activity, Exercise, Dental Care, Sauna/Hot tub use, Seat Belt use, Childbirth classes/Hospital facilities, , Travel, Indications for US and Screening for Aneuploidy Second Trimester Second Trimester: Signs and Symptoms of Labor, Selecting a care provider, Reproductive Life Planning, Care Planning, Tobacco Cessation, Depression/Anxiety and Intimate Partner Violence Third Trimester Third Trimester: Pain Management Plans, Labor support person(s), Immediate Larc, Movement Monitoring and Infant Feeding Yes ; discussed Trial of Labor after Counseling or discussed Circumcision preference Diagnostics Diagnostics Diagnostics Gest Glucose Tolerance MG/DL 05/26/19 Glucose 1 Hr 50 gm 152 mg/dL (70-140) H 05/19/19 Hgb 12.3 g/dL (12.0-15.0) 05/19/19 Hct 36.3 % (37-47) L 05/19/19 Details: HIV: Urine Culture: Sequential Screen: NIPT Screen: ROS Const Reports system reviewed and no additional complaints, except as docu Card Reports system reviewed and no additional complaints, except as docu Resp Reports system reviewed and no additional complaints, except as docu GI Reports system reviewed and no additional complaints, except as docu, Reports nausea Reports system reviewed and no additional complaints, except as docu Musc Reports system reviewed and no additional complaints, except as docu Exam Const General: cooperative, healthy appearing, comfortable, anxious HENMT Head: normal to inspection Nose: external nose normal Face and sinus: normal facial exam Neck Neck: normal visual inspection, full ROM, no lymphadenopathy Thyroid: thyroid normal Chest Chest palpation & inspection: normal inspection of the chest Resp Effort & Inspection: normal respiratory effort GI Inspection: normal to inspection Palpation: soft, other (gravid uterus) Other: vertex and appropriate size for gestational age Other: Cervical Exam: Extrem General: pedal edema Results POC Urinalysis 2 Dip (Clinic) Office Urine Glucose Negative Last Edit by Keri Tate on 07/28/19 15:5 7 Office Urine Protein Negative Last Edit by Keri Tate on 07/28/19 15:5 7 Assessment & Plan Problems 1. Abnormal glucose affecting O99.810 2. History of depression Z87.59; Z86.59 3. Supervision of other normal , antepartum Z34.80 4. History of Z98.891 5. 37 weeks gestation of Z3A.37 plan RLTCS Orders Orders: POC Urinalysis 2 Dip (Clinic) Today Coding Level of Care Code OB Routine Diagnoses Abnormal glucose affecting O99.810 History of depression Z87.59; Z86.59 Supervision of other normal , antepartum Z34.80 History of Z98.891 37 weeks gestation of Z3A.37 ??Weeks of gestation: 37 weeks
[2019-08-07] MEDS: Lactated Ringers 1,000 ML 999 ML IV (10:28)
[2019-08-07 11:05] LABS: Absolute Lymphocyte Count 2.06 X10^3/uL (0.83-4.51); Absolute Neutrophil Count 4.9 X10^3/uL (2.0-7.7); Basophil# 0.04 X10^3/uL; Basophil% 0.5 % (0-1); Eosinophil# 0.25 X10^3/uL; Eosinophils% 3.2 % (0-5); Hematocrit 38.7 % (37-47); Hemoglobin 13.6 g/dL (12.0-15.0); Lymphocyte # 2.06 X10^3/ul (4.0); Lymphocyte % 26.1 % (19-41); Mean Corp Hgb Conc 35.1 g/dL (32-36); Mean Corpuscular Hgb 28.6 pg (27.0-32.0); Mean Corpuscular Volume 81.3 fL (81-99); Mean Platelet Vol. 11.2 fl (6.2-12.0); Monocyte% 7.6 % (0-10); NRBC Flagged by Analyzer 0 % (0-5); Neutrophil # 4.87 X10^3/uL (2.7-7.7); Neutrophil % 61.7 % (47-70); Platelet Count 208 K/mm3 (150-450); RBC Distribution Width CV 13.9 % (11.6-14.6); RBC Distribution Width SD 40.3 fl (35.1-43.9); Red Blood Count 4.76 M/mm3 (4.2-5.4); White Blood Count 7.9 K/mm3 (4.4-11.0)
[2019-08-07] MEDS: Sodium Citrate/Citric Acid 30 ML UDC PO (11:45)
[2019-08-07] MEDS: Cefazolin 2 GM in 0.9% Normal Saline 100 ML IV (11:56)
[2019-08-07] MEDS: Oxytocin 30 units/NS 500 ml 30 UNITS/500 ML IV.SOLN 167 UNITS IV (13:30)
[2019-08-07] MEDS: Ondansetron 4 MG/2 ML Vial IV (15:11)
[2019-08-07] MEDS: Lactated Ringers 1,000 ML 100 ML IV (16:55)
[2019-08-07] MEDS: Ketorolac 30 MG/ML Syringe IV (18:00)
[2019-08-07] MEDS: proCHLORPERazine 10 MG/2 ML Vial IV (18:20)
[2019-08-08] VITALS: BP 103/65; PULSE 87; RESP 18; TEMP 36.6; O2SAT 98
[2019-08-08 01:00] VITALS: PULSE 89; RESP 18; O2SAT 98
[2019-08-08] MEDS: 0.9% Saline Lock 10 ML Syringe IV ×3 (01:00→11:51)
[2019-08-08] MEDS: Ketorolac 30 MG/ML Syringe IV ×3 (01:00→11:51)
[2019-08-08 04:00] VITALS: BP 95/58; PULSE 80; RESP 17; TEMP 36.6
[2019-08-08 05:30] LABS: Hematocrit 30.8 % (37-47); Hemoglobin 10.7 g/dL (12.0-15.0); Mean Corp Hgb Conc 34.7 g/dL (32-36); Mean Corpuscular Hgb 29.2 pg (27.0-32.0); Mean Corpuscular Volume 83.9 fL (81-99); Mean Platelet Vol. 11.4 fl (6.2-12.0); Platelet Count 179 K/mm3 (150-450); RBC Distribution Width CV 13.9 % (11.6-14.6); RBC Distribution Width SD 42.7 fl (35.1-43.9); Red Blood Count 3.67 M/mm3 (4.2-5.4); White Blood Count 8.7 K/mm3 (4.4-11.0)
--- NOTE | 2019-08-08 08:15 | PN.OBGYN_ITS ---
Subjective: Doing well, no complaints.Pain controlled. Denies CP, SOB, N,V. Ambulating well, tolerating po. Lochia moderate, going well. - Physical Exam Vitals/I&O's: Vital Signs Temp Pulse Resp BP Pulse Ox 98 F 80 17 95/58 L 98 08/08/19 04:00 08/08/19 04:00 08/08/19 04:00 08/08/19 04:00 08/08/19 01:00 Oxygen Flow Rate (L/min) 2 Oxygen Delivery Method Room Air Weight: 189 lb 9.561 oz Body Mass Index (BMI) 33.5 Intake and Output for Last 24 Hours 08/06/19 08/07/19 08/08/19 23:59 23:59 23:59 Intake Total 1810 / 1810 1000 / 1000 Output Total 750 / 750 850 / 850 Balance 1060 / 1060 150 / 150 General: Alert, Oriented x3 Abdomen: Soft, Non-Distended, - - FF below U. Dressing dry and intact Laboratory Results 08/07/19 10:20: WBC 7.9, RBC 4.76, Hgb 13.6, Hct 38.7, MCV 81.3, MCH 28.6, MCHC 35.1, RDW Std Deviation 40.3, RDW Coeff of Tamiko 13.9, Plt Count 208, MPV 11.2, Immature Gran % (Auto) 0.900, Neut % (Auto) 61.7, Lymph % (Auto) 26.1, Louisa % (Auto) 7.6, Eos % (Auto) 3.2, Baso % (Auto) 0.5, Absolute Neuts (auto) 4.9, Absolute Lymphs (auto) 2.06, Nucleated RBC % 0 08/07/19 10:20: Blood Type A POSITIVE, Antibody Screen NEGATIVE 08/08/19 04:40: WBC 8.7, RBC 3.67 L, Hgb 10.7 L, Hct 30.8 L, MCV 83.9, MCH 29.2, MCHC 34.7, RDW Std Deviation 42.7, RDW Coeff of Tamiko 13.9, Plt Count 179, MPV 11.4 Current Medications Acetaminophen (Tylenol) 1,000 mg PO Q8H PRN PRN Reason: Pain Score 1-3/10 Bisacodyl (Dulcolax) 10 mg RECTAL UD PRN PRN Reason: If no BM Diphenhydramine HCl (Benadryl) 25 mg PO Q6H PRN PRN PRN Reason: ITCHING Stop: 08/08/19 13:26 Hydrocortisone (Hytone) 1 applic TOPICAL TID PRN PRN; Protocol PRN Reason: Discomfort Naloxone HCl 4 mg/ Dextrose 504 mls @ 0 mls/hr IV .Q0M PRN; Protocol PRN Reason: Respiratory depression Ketorolac Tromethamine (Toradol (Bkc)) 30 mg IV Q6 TERESA Stop: 08/09/19 12:01 Last Admin: 08/08/19 06:29 Dose: 30 mg Documented by: Methylergonovine Maleate (Methergine) 0.2 mg IM X1 PRN PRN Reason: Uterine Atony Nalbuphine HCl (Nubain) 5 mg IV Q3H PRN PRN PRN Reason: ITCHING Stop: 08/08/19 13:26 Naloxone HCl (Narcan) 0.02 mg IV Q1M PRN PRN Reason: RR <10 and pt unresponsive Naproxen (Naprosyn) 250 - 500 mg PO Q8H PRN PRN PRN Reason: Pain Score 1-3/10 Ondansetron HCl (Zofran) 4 mg IV Q4H PRN PRN PRN Reason: Nausea Last Admin: 08/07/19 15:11 Dose: 4 mg Documented by: Oxycodone HCl (Oxyir) 5 - 10 mg PO Q4H PRN PRN PRN Reason: Pain Score 4-10/10 Prochlorperazine Edisylate (Compazine Iv) 10 mg IV Q6H PRN PRN PRN Reason: NAUSEA Last Admin: 08/07/19 18:20 Dose: 10 mg Documented by: Senna/Docusate Sodium (Senokot-S, Brittanie-Colace) 0 tablet PO DAILY PRN PRN Reason: Constipation Simethicone (Mylicon) 80 mg PO PCHS PRN PRN Reason: Indigestion/stomach pain Sodium Chloride () 5 - 15 ml IV UD PRN PRN Reason: SALINE FLUSH Last Admin: 08/08/19 06:29 Dose: 10 ml Documented by: Medical Necessity - Tobacco Use Smoking Status: Never smoker Assessment/Plan All Active Problems (Last Reviewed 07/28/19 @ 15:54 by Keri Tate) Abnormal glucose affecting (Acute) History of depression (Acute) Supervision of other normal , antepartum (Acute) History of (Acute) (Acute) s/p LTCS PPD # 1 1. routine post care 2. breast feeding- support given 3. rh positive 4. rubella immune
[2019-08-08 08:16] VITALS: BP 112/68; PULSE 83; RESP 15; TEMP 36.6
--- NOTE | 2019-08-08 08:18 | DCINST_ITS ---
Additional Instructions: If you experience any of the following, contact your healthcare provider. * Bleeding that soaks a pad every hour for 2 hours * Fever 100.4 or higher * Unrelieved incision or abdominal pain * Swelling, redness, discharge or bleeding from your incision or episiotomy site * Your incision begins to separate * Problems urinating (including inability to urinate or burning while urinating). * Visual changes * Severe headache * Flu-like symptoms * Pain or redness in one of both of your breasts * Pain, warmth, tenderness or swelling in your legs, especially the calf area * Frequent nausea and vomiting * Symptoms of depression or anxiety If you experience any of the following, call 911 or go to the nearest Emergency Room. * Chest pain * Problems breathing * Seizure activity * Partial or complete paralysis of a body part, slurred speech, weakness or drooping of the face, or a sudden inability to walk or hold your balance Allergies/Adverse Reactions: Allergies No Known Allergies Allergy (Verified 07/28/19 15:54) Medications to take at Discharge Vits [Prenatabs FA ] 1 tab PO DAILY 08/07/19 Follow-Up: Call to make an appointment with your doctor for an incision check in 1-2 weeks. You will also need a 6 week post- follow up appointment. Test results from this visit will be discussed in further detail at your follow- up appointment, if applicable. Primary Care Physician: Darek Mitchell MD [Primary Care Provider] -
--- NOTE | 2019-08-08 08:18 | PCM.DCCSEC ---
Additional Instructions: If you experience any of the following, contact your healthcare provider. Bleeding that soaks a pad every hour for 2 hours Fever 100.4 or higher Unrelieved incision or abdominal pain Swelling, redness, discharge or bleeding from your incision or episiotomy site Your incision begins to separate Problems urinating (including inability to urinate or burning while urinating). Visual changes Severe headache Flu-like symptoms Pain or redness in one of both of your breasts Pain, warmth, tenderness or swelling in your legs, especially the calf area Frequent nausea and vomiting Symptoms of depression or anxiety If you experience any of the following, call 911 or go to the nearest Emergency Room. Chest pain Problems breathing Seizure activity Partial or complete paralysis of a body part, slurred speech, weakness or drooping of the face, or a sudden inability to walk or hold your balance Allergies/Adverse Reactions: Allergies No Known Allergies Allergy (Verified 07/28/19 15:54) Medications to take at Discharge Vits [Prenatabs FA ] 1 tab PO DAILY 08/07/19 Follow-Up: Call to make an appointment with your doctor for an incision check in 1-2 weeks. You will also need a 6 week post- follow up appointment. Test results from this visit will be discussed in further detail at your follow-up appointment, if applicable. Primary Care Physician: Darek Mitchell MD [Primary Care Provider] -
[2019-08-08] MEDS: Senna/Docusate Sodium 1 Tablet PO (11:51)
[2019-08-08 11:55] VITALS: BP 111/49; PULSE 86; RESP 15; TEMP 36.6
== END 2019-08-08 15:30 | disposition home or self-care (01) | DRG 787 ==
PROVIDERS: Admitting Provider Obstetrics & Gynecology; PCP Family Medicine; Visit Provider Obstetrics & Gynecology
PROC: 10D00Z1 Extraction of Products of Conception, Low, Open Approach (ICD-10-PCS; CPT 59514; principal; 2019-08-07 11:45)
DX: O34.211 Maternal care for low transverse scar from previous cesarean delivery (principal); K50.90 Crohn's disease, unspecified, without complications; O99.62 Diseases of the digestive system complicating childbirth; O99.814 Abnormal glucose complicating childbirth; Z37.0 Single live birth; Z3A.39 39 weeks gestation of pregnancy; Z86.59 Personal history of other mental and behavioral disorders
CPT/HCPCS: 85025; 85027; 86850; 86900; 86901; 99218; J7120; A4216; G0378; J2405

== ENCOUNTER → 2020-03-22 15:57 | Outpatient (CLI) | payer OTHER, SELFPAY ==
[2019-10-16 13:08] VITALS: BMI 33.5
== END ==
PROVIDERS: PCP Family Medicine; Visit Provider Family Medicine
DX: B34.9 Viral infection, unspecified (principal)
CPT/HCPCS: 87635; U0003

== ENCOUNTER → 2020-03-25 09:39 | Outpatient (CLI) | payer OTHER, SELFPAY ==
[2019-10-16 13:08] VITALS: BMI 33.5
[2020-03-25 10:28] LABS: hCG Titer Quant., Serum < 1 mIU/mL (1-3)
== END ==
PROVIDERS: PCP Family Medicine; Referring Provider Obstetrics & Gynecology; Visit Provider Obstetrics & Gynecology
DX: N91.2 Amenorrhea, unspecified (principal)
CPT/HCPCS: 36415; 84702

== ENCOUNTER → 2020-04-03 13:46 | Outpatient (CLI) | payer OTHER, SELFPAY ==
[2019-10-16 13:08] VITALS: BMI 33.5
[2020-04-03 14:53] LABS: hCG Titer Quant., Serum 17 mIU/mL (1-3)
== END ==
PROVIDERS: PCP Family Medicine; Referring Provider Nurse Practitioner Women's Health; Visit Provider Nurse Practitioner Women's Health
DX: N91.2 Amenorrhea, unspecified (principal)
CPT/HCPCS: 36415; 84702

== ENCOUNTER → 2020-04-05 11:09 | Outpatient (CLI) | payer OTHER, SELFPAY ==
[2019-10-16 13:08] VITALS: BMI 33.5
[2020-04-05 11:52] LABS: hCG Titer Quant., Serum 34 mIU/mL (1-3)
== END ==
PROVIDERS: PCP Family Medicine; Referring Provider Obstetrics & Gynecology; Visit Provider Obstetrics & Gynecology
DX: O20.0 Threatened abortion (principal); Z3A.00 Weeks of gestation of pregnancy not specified
CPT/HCPCS: 36415; 84702

== ENCOUNTER → 2020-04-07 12:34 | Outpatient (CLI) | payer OTHER, SELFPAY ==
[2019-10-16 13:08] VITALS: BMI 33.5
[2020-04-07 13:31] LABS: hCG Titer Quant., Serum 71 mIU/mL (1-3)
== END ==
PROVIDERS: PCP Family Medicine; Visit Provider Obstetrics & Gynecology
DX: O20.0 Threatened abortion (principal)
CPT/HCPCS: 36415; 84702

== ENCOUNTER → 2020-04-15 16:46 | Outpatient (CLI) | payer OTHER, SELFPAY ==
[2019-10-16 13:08] VITALS: BMI 33.5
[2020-04-15 17:47] LABS: Absolute Lymphocyte Count 3.59 X10^3/uL (0.83-4.51); Absolute Neutrophil Count 5.6 X10^3/uL (2.0-7.7); Basophil# 0.09 X10^3/uL; Basophil% 0.8 % (0-1); Eosinophils% 7.5 % (0-5); Hematocrit 37.7 % (37-47); Hemoglobin 12.9 g/dL (12.0-15.0); Lymphocyte # 3.59 X10^3/ul (4.0); Lymphocyte % 33.5 % (19-41); Mean Corp Hgb Conc 34.2 g/dL (32-36); Mean Corpuscular Hgb 28.3 pg (27.0-32.0); Mean Corpuscular Volume 82.7 fL (81-99); Mean Platelet Vol. 10.9 fl (6.2-12.0); Monocyte# 0.56 X10^3/uL; Monocyte% 5.2 % (0-10); NRBC Flagged by Analyzer 0 % (0-5); Neutrophil # 5.63 X10^3/uL (2.7-7.7); Neutrophil % 52.6 % (47-70); Platelet Count 346 K/mm3 (150-450); RBC Distribution Width CV 12.7 % (11.6-14.6); RBC Distribution Width SD 37.9 fl (35.1-43.9); Red Blood Count 4.56 M/mm3 (4.2-5.4); White Blood Count 10.7 K/mm3 (4.4-11.0)
[2020-04-15 18:32] LABS: AST(SGOT) 17 U/L (15-37); Alanine Aminotransfer ALT/SGPT 33 U/L (13-56); Albumin, Serum 3.9 g/dL (3.2-5.0); Alkaline Phosphatase 73 U/L (45-117); Amylase 58 U/L (25-115); Anion Gap 8 (5-15); BUN 11 mg/dL (7-18); BUN/Creat Ratio 15.2 RATIO (10-20); Calcium,Total 9.1 mg/dL (8.5-10.1); Chloride 105 mmol/L (98-107); Creatinine, Serum 0.72 mg/dL (0.55-1.02); EST Glomerular Filtration Rate 106 mL/min (>60); Est Glom Filt Rate - Afr Amer 128 mL/min (>60); Globulin 3.8 g/dL (2.2-4.2); Glucose 94 mg/dL (74-106); Lipase 189 U/L (73-393); Potassium 3.4 mmol/L (3.5-5.1); Protein, Total 7.7 g/dL (6.4-8.2); Sodium Level 139 mmol/L (136-145)
[2020-04-15 18:42] LABS: hCG Titer Quant., Serum 2133 mIU/mL (1-3)
== END ==
PROVIDERS: PCP Family Medicine; Visit Provider Family Medicine
DX: R10.10 Upper abdominal pain, unspecified (principal)
CPT/HCPCS: 36415; 80053; 82150; 83690; 84702; 85025

== ENCOUNTER → 2020-04-15 17:47 | Outpatient (CLI) | payer OTHER, SELFPAY ==
[2019-10-16 13:08] VITALS: BMI 33.5
--- NOTE | 2020-04-15 17:50 | US_ITS ---
STUDY: FIRST TRIMESTER OBSTETRICAL ULTRASOUND REASON FOR EXAM: Female, 24 years old SEVERE ABD PAIN R/O ECTOPIC NO BLEEDING LMP: Unknown. TECHNIQUE: Transvaginal TECHNICAL QUALITY: Adequate. PRIOR ULTRASOUND: None. FINDINGS: There is visualization of a single gestational sac in a normal intrauterine position. The mean sac diameter (MSD) measures 0.65 cm, indicating an estimated gestational age (EGA) of 5 weeks, 2 days. The gestational sac shape is within normal limits. There is a visualized yolk sac. The yolk sac measures 0.19 cm. The placenta is non-visualized. There is no demonstrated embryo ( pole). No visualized heart tones, however, fetus measures only 5 weeks 2 days by current ultrasound which is likely too early to determine viability. Recommend serial beta-hCG studies and follow-up ultrasound in 7-10 days to determine viability. The estimated gestation age (EGA) by US is 5 weeks, 2 days. The uterus measures 8.0 x 6.0 x 4.6 cm. There is no demonstrated uterine fibroid. The cervix is closed. There is a small subchorionic hemorrhage noted. The right ovary measures 4.2 x 2.9 x 2.3 cm. There is a simple 2.3 cm cyst. The left ovary measures 3.4 x 2.1 x 1.2 cm. There is no left ovarian cyst. There is no visualized left adnexal mass or complex lesion. There is no fluid in the cul de sac. There is echogenic debris within the bladder suggesting protein which could be due to UTI US/Init OB < 14Wks US IMPRESSION: Normal appearing intrauterine gestational sac. However, only a yolk sac is identified. There is no pole are yet identified. It is likely too early to determine viability as fetus measures only 5 weeks 2 days by current ultrasound. Recommend serial beta-hCG studies and follow-up ultrasound in 7-10 days. Small subchorionic hemorrhage, short-term follow-up recommended to assure resolution Electronically Signed: Crispin Valenzuela MD at 19:18 EST , Service support ,
== END ==
PROVIDERS: PCP Family Medicine; Visit Provider Obstetrics & Gynecology
DX: O26.891 Other specified pregnancy related conditions, first trimester (principal); R10.9 Unspecified abdominal pain; Z3A.01 Less than 8 weeks gestation of pregnancy
CPT/HCPCS: 76801

== ENCOUNTER → 2020-04-23 16:29 | Outpatient (CLI) | payer OTHER, SELFPAY ==
[2019-10-16 13:08] VITALS: BMI 33.5
--- NOTE | 2020-04-23 16:31 | US_ITS ---
STUDY: FIRST TRIMESTER OBSTETRICAL ULTRASOUND REASON FOR EXAM: Female, 24 years old dating-viability LMP: Unknown. TECHNIQUE: Transvaginal TECHNICAL QUALITY: Adequate. PRIOR ULTRASOUND: None. FINDINGS: There is visualization of a single gestational sac in a normal intrauterine position. The mean sac diameter (MSD) measures 1.71 cm, indicating an estimated gestational age (EGA) of 6 weeks, 4 days. The gestational sac shape is within normal limits. There is a visualized yolk sac. The yolk sac measures 3.3 mm. The placenta is non-visualized. There is visualization of a live embryo. The crown-rump length (CRL) measures 4.5 mm, indicating an estimated gestational age (EGA) of 6 weeks, 2 days. There is demonstrated cardiac activity with a heart rate of 112 bpm. The estimated gestation age (EGA) by US is 6 weeks, 3 days. The estimated date of delivery (VALENTIN) by US is 12/15/2019. The uterus measures 8.8 cm x 6.2 cm x 4.8 cm. There is no demonstrated uterine fibroid. The cervix is closed. The right ovary measures 3.7 cm x 2.4 cm x 2.5 cm. There is no right ovarian cyst. There is no visualized right adnexal mass or complex lesion. The left ovary measures 2.8 cm x 2.3 cm x 1.6 cm. There is no left ovarian cyst. There is no visualized left adnexal mass or complex lesion. There is no fluid in the cul de sac. US/Transvaginal w/Preg US IMPRESSION: Single live intrauterine gestation with a mean gestational age of 6 weeks and 3 days. Electronically Signed: Peewee Constantino, at 14:57 EST , Service support ,
== END ==
PROVIDERS: PCP Family Medicine; Visit Provider Obstetrics & Gynecology
DX: O26.899 Other specified pregnancy related conditions, unspecified trimester (principal); R10.10 Upper abdominal pain, unspecified; Z3A.01 Less than 8 weeks gestation of pregnancy
CPT/HCPCS: 76817

== ENCOUNTER → 2020-05-13 17:02 | Outpatient (CLI) | payer OTHER, MEDICAID, SELFPAY ==
[2020-05-13 13:56] VITALS: BMI 32.4
[2020-05-13 18:25] LABS: Amphetamine Urine VISTA NEGATIVE (<1000 ng/mL); Barbiturate Urine VISTA NEGATIVE (< 200 ng/mL); Benzodiazepine Urine VISTA NEGATIVE (< 200 ng/mL); Cocaine Urine VISTA NEGATIVE (< 300 ng/mL); Ecstacy Urine VISTA NEGATIVE (< 500 ng/mL); Methadone Urine VISTA NEGATIVE (< 300 ng/mL); PCP Urine VISTA NEGATIVE (< 25 ng/mL); THC Urine VISTA NEGATIVE (< 50 ng/mL); Vista UDS pH Range 5
[2020-05-16 14:57] LABS: HPV Reflexed? NOT INDICATED
== END ==
PROVIDERS: PCP Family Medicine; Visit Provider Obstetrics & Gynecology
DX: Z12.4 Encounter for screening for malignant neoplasm of cervix (principal); Z34.90 Encounter for supervision of normal pregnancy, unspecified, unspecified trimester
CPT/HCPCS: 80307; 87086; 87088; 88175; G0145

== ENCOUNTER → 2020-05-16 12:49 | Outpatient (CLI) | payer OTHER, MEDICAID, SELFPAY ==
[2020-05-13 13:56] VITALS: BMI 32.4
--- NOTE | 2020-05-16 12:51 | US_ITS ---
STUDY: FIRST TRIMESTER OBSTETRICAL ULTRASOUND REASON FOR EXAM: Female, 24 years old viability - bleeding LMP: Unknown. TECHNIQUE: Transabdominal and Transvaginal TECHNICAL QUALITY: Adequate. PRIOR ULTRASOUND: Comparison is made with prior examination dated 04/23/2020. FINDINGS: There is visualization of a single gestational sac in a normal intrauterine position. The gestational sac shape is within normal limits. There is a visualized yolk sac. The yolk sac measures 5 mm. The placenta is non-visualized. There is visualization of a live embryo. The crown-rump length (CRL) measures 3.13 cm, indicating an estimated gestational age (EGA) of 9 weeks, 5 days. There is demonstrated cardiac activity with a heart rate of bpm. The estimated gestation age (EGA) by LMP is 9 weeks, 5 days. The estimated date of delivery (VALENTIN) by LMP is 12/14/2020. The estimated gestation age (EGA) by US is 9 weeks, 5 days. The estimated date of delivery (VALENTIN) by US is 12/14/2020. The uterus measures 11.4 cm x 8.7 cm x 7.5 cm. Small resolving subchorionic hematoma. There is no demonstrated uterine fibroid. The cervix is closed. The right ovary measures 4.7 cm x 2 cm x 2.7 cm. There is no right ovarian cyst. There is no visualized right adnexal mass or complex lesion. The left ovary measures 3.3 cm x 1.8 cm x 1.7 cm. There is no left ovarian cyst. There is no visualized left adnexal mass or complex lesion. There is no fluid in the cul de sac. US/Init OB < 14Wks US IMPRESSION: Single live 8 uterine gestation with a mean gestational age of 9 weeks and 5 days. Small resolving subchorionic hematoma. Electronically Signed: Peewee Constantino, at 14:27 EST , Service support ,
== END ==
PROVIDERS: PCP Family Medicine; Referring Provider Obstetrics & Gynecology; Visit Provider Obstetrics & Gynecology
DX: R58 Hemorrhage, not elsewhere classified (principal)
CPT/HCPCS: 76801

== ENCOUNTER → 2020-05-22 13:07 | Outpatient (CLI) | payer OTHER, MEDICAID, SELFPAY ==
[2020-05-13 13:56] VITALS: BMI 32.4
[2020-05-22 13:33] LABS: Absolute Lymphocyte Count 2.41 X10^3/uL (0.83-4.51); Absolute Neutrophil Count 5.6 X10^3/uL (2.0-7.7); Basophil# 0.05 X10^3/uL; Basophil% 0.6 % (0-1); Eosinophil# 0.46 X10^3/uL; Eosinophils% 5.2 % (0-5); Hematocrit 37.1 % (37-47); Hemoglobin 12.8 g/dL (12.0-15.0); Lymphocyte # 2.41 X10^3/ul (4.0); Lymphocyte % 27.3 % (19-41); Mean Corp Hgb Conc 34.5 g/dL (32-36); Mean Corpuscular Hgb 27.9 pg (27.0-32.0); Mean Platelet Vol. 10.9 fl (6.2-12.0); Monocyte% 3.4 % (0-10); NRBC Flagged by Analyzer 0 % (0-5); Neutrophil # 5.59 X10^3/uL (2.7-7.7); Neutrophil % 63.3 % (47-70); Platelet Count 266 K/mm3 (150-450); RBC Distribution Width CV 12.1 % (11.6-14.6); RBC Distribution Width SD 35.2 fl (35.1-43.9); Red Blood Count 4.58 M/mm3 (4.2-5.4); White Blood Count 8.8 K/mm3 (4.4-11.0)
[2020-05-22 14:43] LABS: HIV - WCH Non-Reactive (Nonreactive); Hepatitis B Surface Antigen Non-Reactive (Nonreactive); Hepatitis C Antibody Non-Reactive (Nonreactive); Rubella IgG Reactive (Nonreactive)
[2020-05-23 03:03] LABS: Rapid Plasmin Reagin (RPR) NONREACTIVE (NONREACTIVE)
== END ==
PROVIDERS: PCP Family Medicine; Referring Provider Obstetrics & Gynecology; Visit Provider Obstetrics & Gynecology
DX: Z34.81 Encounter for supervision of other normal pregnancy, first trimester (principal); Z31.430 Encounter of female for testing for genetic disease carrier status for procreative management
CPT/HCPCS: 36415; 85025; 86592; 86703; 86762; 86803; 86850; 86900; 86901; 87340

== ENCOUNTER → 2020-09-24 10:40 | Outpatient (CLI) | payer OTHER, MEDICAID, SELFPAY ==
[2020-09-06 15:50] VITALS: BMI 32.8
[2020-09-24 10:53] LABS: Absolute Lymphocyte Count 2.22 X10^3/uL (0.83-4.51); Absolute Neutrophil Count 6.7 X10^3/uL (2.0-7.7); Basophil# 0.05 X10^3/uL; Basophil% 0.5 % (0-1); Eosinophil# 0.41 X10^3/uL; Eosinophils% 4.1 % (0-5); Hemoglobin 11.9 g/dL (12.0-15.0); Lymphocyte # 2.22 X10^3/ul (0.83-4.51); Lymphocyte % 22.1 % (19-41); Mean Corpuscular Volume 79.4 fL (81-99); Mean Platelet Vol. 10.7 fl (6.2-12.0); Monocyte# 0.56 X10^3/uL; Monocyte% 5.6 % (0-10); NRBC Flagged by Analyzer 0 % (0-5); Neutrophil # 6.74 X10^3/uL (2.7-7.7); Platelet Count 290 K/mm3 (150-450); RBC Distribution Width CV 13.2 % (11.6-14.6); RBC Distribution Width SD 37.7 fl (35.1-43.9); Red Blood Count 4.41 M/mm3 (4.2-5.4); White Blood Count 10.1 K/mm3 (4.4-11.0)
[2020-09-24 11:02] LABS: Glucose Challenge Gest 1H 50g 135 mg/dL (70-140)
== END ==
PROVIDERS: PCP Family Medicine; Referring Provider Obstetrics & Gynecology; Visit Provider Obstetrics & Gynecology
DX: O09.90 Supervision of high risk pregnancy, unspecified, unspecified trimester (principal); Z3A.00 Weeks of gestation of pregnancy not specified
CPT/HCPCS: 36415; 82950; 85025

== ENCOUNTER → 2020-10-01 06:44 | Outpatient (CLI) | payer OTHER, MEDICAID, SELFPAY ==
[2020-09-24 13:03] VITALS: BMI 32.8
[2020-10-01 07:20] LABS: Glucose GTT-Gestation. Fasting 93 mg/dL (<105)
[2020-10-01 09:43] LABS: Glucose GTT-Gestational 2 Hr 135 mg/dL (<165)
[2020-10-01 09:48] LABS: Glucose GTT-Gestational 1 Hr 175 mg/dL (<190)
[2020-10-01 11:21] LABS: Glucose GTT-Gestational 3 Hr 122 L (<145)
== END ==
PROVIDERS: PCP Family Medicine; Referring Provider Nurse Practitioner Women's Health; Visit Provider Nurse Practitioner Women's Health
DX: Z13.1 Encounter for screening for diabetes mellitus (principal)
CPT/HCPCS: 36415; 82951; 82952

== ENCOUNTER 2020-12-09 05:00 | Inpatient (IN) | payer MEDICAID, SELFPAY ==
[2020-10-25 15:29] VITALS: BMI 32.8
[2020-12-06 14:58] VITALS: BMI 33.5
[2020-12-09] VITALS (20 sets, daily range): BP systolic 90–118; BP diastolic 43–69; PULSE 61–99; RESP 14–18; TEMP 35.8–36.6; O2SAT 97–100; BMI 34.4
[2020-12-09] MEDS: Lactated Ringers 1,000 ML 999 ML IV (05:35)
[2020-12-09] MEDS: Acetaminophen 500 MG Tablet 1000 MG PO ×4 (05:48→23:47)
[2020-12-09 05:58] LABS: Absolute Lymphocyte Count 1.87 X10^3/uL (0.83-4.51); Absolute Neutrophil Count 3.7 X10^3/uL (2.0-7.7); Basophil# 0.03 X10^3/uL; Basophil% 0.5 % (0-1); Eosinophils% 4.8 % (0-5); Hematocrit 32.6 % (37-47); Hemoglobin 10.4 g/dL (12.0-15.0); Lymphocyte # 1.87 X10^3/ul (0.83-4.51); Lymphocyte % 30.2 % (19-41); Mean Corp Hgb Conc 31.9 g/dL (32-36); Mean Corpuscular Hgb 23.2 pg (27.0-32.0); Mean Corpuscular Volume 72.8 fL (81-99); Mean Platelet Vol. 11.2 fl (6.2-12.0); Monocyte# 0.29 X10^3/uL; Monocyte% 4.7 % (0-10); NRBC Flagged by Analyzer 0 % (0-5); Neutrophil # 3.67 X10^3/uL (2.7-7.7); Neutrophil % 59.3 % (47-70); Platelet Count 266 K/mm3 (150-450); RBC Distribution Width CV 14.6 % (11.6-14.6); RBC Distribution Width SD 38.5 fl (35.1-43.9); Red Blood Count 4.48 M/mm3 (4.2-5.4); White Blood Count 6.2 K/mm3 (4.4-11.0)
[2020-12-09] MEDS: Lactated Ringers 1,000 ML 150 ML IV (06:41)
[2020-12-09] MEDS: Sodium Citrate/Citric Acid 30 ML UDC PO (07:02)
--- NOTE | 2020-12-09 07:27 | HP.PCM.OB_ITS ---
HPI - General General Date of Admission: 12/09/20 HPI Lianna MACE, is a 25 F at 39 weeks who presents for scheduled repeat c- section. Maternal Data Information VALENTIN Calculator Estimated Delivery Date Method Current WG Current Estimate 12/15/20 Ultrasound #1 39w 1d PFSH PFSH Medical History Crohn disease Home Medications vit,[id number] 1 tab PO DAILY 08/07/19 [History Last Taken 2 Weeks Ago ~11/25/20] ondansetron HCl 4 mg tablet 4 mg PO Q8H PRN #90 tab 07/12/20 [Rx Last Taken 12/08/20] Allergy/AdvReac Type Severity Reaction Status Date / Time No Known Allergies Allergy Verified 12/06/20 14:57 Family History Mother Diabetes Thyroid disorder Surgical History deliv due to previous difficult deliv, deliv, curr hospitaliz Left ovarian cyst [place] teeth extracted Social History household members: family number of children: 3 current occupational status: employed 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 Smoking Status: Never smoker alcohol intake: never substance use type: does not use caffeine: Yes Type: tea Number of servings: 1 seatbelt use: always do you feel safe at home: Yes additional social history: Alvin Daisha History 4 Elective abortions Hx Para 3 Spontaneous abortions Hx # Term Pregnancies 3 Ectopic pregnancies Hx # Pregnancies Multiple births # of living children 3 Past Pregnancies Del. Date Name GA/Weeks Outcome Route Bth Weight Infant Gen Labor Lgth Anesthesia Del Locatn Provider FOB 10/31/15 Luis F 40 live - full term 8 lbs 14 oz. Mal e general [facility] Dr Mejía 10/19/16 [place] 39 live - full term 8 lbs 1 oz. Female spinal [facility] Dr. Mejía 08/07/19 Viry 39 live - full term 9lbs Female spinal [facility] Dr. Orta Delivery Date: 10/31/15 No notes to display Delivery Date: 10/19/16 No notes to display Delivery Date: 08/07/19 RLTCS, significant scar tissue, thin LAMBERTO Jess Cooper Visit Details Expected Delivery Route/Plan RLTCS Plans flu vaccine: no tdap vaccine: no rhogam: na LARC form signed: yes Problem list reviewed and updated with the most current plan of care details and appropriate orders placed. Relevant counseling for the gestational age provided. Continue routine care and follow up unless otherwise noted in visit notes/problem list details OB Flowsheet Initial Weight: Not Recorded Date -?-?-?-?-?-?-?-?-?-?-?-?- EGA Weight BP Urine Prot -?-?-?-?-?-?-?-?-?-?-?-?- Glucose FHR FuHt Pres Dilation -?-?-?-?-?-?-?-?-?-?-?-?- Effaced St Visit Note 05/13/20 -?-?-?--?-?-?-?-?-?-?-?-?- 9w 1d 189 lb 121/86 -?-?-?-?-?-?-?-?-?-?-?-?- 165 -?-?-?-?-?-?-?-?-?-?-?-?- SM- CRL cons wit h previous US 06/14/20 -?-?-?-?-?-?-?-?-?-?-?-?- 13w 5d 187 lb 2 oz 110/76 Nega tive -?-?-?-?-?-?-?-?-?-?-?-?- Negative 155 -?-?-?-?-?-?-?-?-?-?-?-?- GP - no bleeding . Occasional cramping. No urinary symptoms. Reassurance provided. Zofran prescribed for nausea. 07/12/20 -?-?-?-?-?-?-?-?-?-?-?-?- 17w 5d 187 lb 118/72 -?-?-?-?-?-?-?-?-?-?-?-?- 150 -?-?-?-?-?-?-?-?-?-?-?-?- SM- no vb lof so me fm 09/06/20 -?-?-?-?-?-?-?-?-?-?-?-?- 25w 5d 191 lb 2 oz 118/70 -?-?-?-?-?-?-?-?-?-?-?-?- 150 25 -?-?-?-?-?-?-?-?-?-?-?-?- GP - no LOF, VB, DFM, ctx. Boil lanced on abdomen. GCT next visit. 09/24/20 -?-?-?-?-?-?-?-?-?-?-?-?- 28w 2d 192 lb 2 oz 108/60 Nega tive -?-?-?-?-?-?-?-?-?-?-?-?- Negative 141 29 -?-?-?-?-?-?-?-?-?-?-?-?- MH-No VB, LOF Go od FM. GCT elevated and 3 hr GTT ordered. Nl CBC. Larc. Declines tdap MH-No VB, LOF Good FM. GCT elevated and 3 hr GTT ordered. Nl CBC. Larc. Declines tdap. Reviewed stable placenta on US. 10/11/20 -?-?-?-?-?-?-?-?-?-?-?-?- 30w 5d 194 lb 114/70 Negative -?-?-?-?-?-?-?-?-?-?-?-?- Negative 135 30 -?-?-?-?-?-?-?-?-?-?-?-?- GP - no LOF, VB, DFM, ctx. 10/25/20 -?-?-?-?-?-?-?-?-?-?-?-?- 32w 5d 193 lb 112/80 Negative -?-?-?-?-?-?-?-?-?-?-?-?- Negative 150 -?-?-?-?-?-?-?-?-?-?-?-?- SM-no vb lof goo d fm no reuglar ctx discussed clarifying placenta acreata risk due to placental lakes and 3 previous c sections, anterior placenta. will call office wednesday to schedule evaluation if needed. 11/22/20 -?-?-?-?-?-?-?-?-?-?-?-?- 36w 5d 195 lb 118/72 -?-?-?-?-?-?-?-?-?-?-?-?- 155 36 -?-?-?-?-?-?-?-?-?-?-?-?- GP - no LOF, VB, DFM, ctx. Denies complaints. GBS today. 11/28/20 -?-?-?-?-?-?-?-?-?-?-?-?- 37w 4d 196 lb 130/80 Negative -?-?-?-?-?-?-?-?-?-?-?-?- Negative 140 37 -?-?-?-?-?-?-?-?-?-?-?-?- SM- no vb lof go od fm no regular ctx 12/06/20 -?-?-?-?-?-?-?-?-?-?-?-?- 38w 5d 197 lb 4 oz 122/80 Nega tive -?-?-?-?-?-?-?-?-?-?-?-?- Negative 125 38 Cephalic -?-?-?-?-?-?-?-?-?-?-?-?- GP - no LOF, VB, DFM, ctx. Given c/s pack for delivery on Wednesday12/09/20 -?-?-?-?-?-?-?-?-?-?-?-?- 39w 1d 194 lb 10.691 oz 105/66 -?-?-?-?-?-?-?-?-?-?-?-?- -?-?-?-?-?-?-?-?-?-?-?--?- ROS Eyes Eyes: Reports systems reviewed and no addt'l complaints, except as documented ENT HEENT: Reports systems reviewed and no addt'l complaints, except as documented Cardiovascular Cardiovascular: Reports systems reviewed and no addt'l complaints, except as documented Respiratory/Chest Respiratory/Chest: Reports systems reviewed and no addt'l complaints, except as documented Gastrointestinal Gastrointestinal: Reports systems reviewed and no addt'l complaints, except as documented Genitourinary Genitourinary: Reports systems reviewed and no addt'l complaints, except as documented Musculoskeletal Musculoskeletal: Reports systems reviewed and no addt'l complaints, except as documented Integumentary Integumentary: Reports systems reviewed and no addt'l complaints, except as documented Neurologic Neurologic: Reports systems reviewed and no addt'l complaints, except as documented Psychiatric Psychiatric: Reports systems reviewed and no addt'l complaints, except as documented Endocrine Endocrinology: Reports systems reviewed and no addt'l complaints, except as documented Hematologic/Lymphatic Hematologic/Lymphatic: Reports systems reviewed and no addt'l complaints, except as documented Allergic/Immunologic Allergic/Immunologic: Reports systems reviewed and no addt'l complaints, except as documented Vital Signs Vital Signs Vital Signs: 12/09/20 05:23 Temperature 97.5 F L Temperature Source Temporal Pulse Rate 99 Respiratory Rate 16 Blood Pressure 105/66 Blood Pressure Mean 79 Blood Pressure Source Monitor Blood Pressure Position Semi-Fowlers Blood Pressure Location Left Arm Pulse Ox 97 Oxygen Delivery Method Room Air Weight Weight: 194 lb 10.691 oz Body Mass Index (BMI) 34.4 Physical Exam Const alert, oriented x3, no apparent distress, average body habitus, healthy appearing and well nourished HEENT normocephalic and moist oral mucous membranes Head and Scalp: atraumatic Eyes PERRL and EOMs intact bilaterally Neck full ROM Resp normal respiratory effort, no retractions and no use of accessory muscles Cardio regular rate and regular rhythm GI soft to palpation, non-tender and non-distended Extremity normal to inspection and full ROM Skin no rashes or lesions noted Neuro no focal motor deficits and no sensory deficits noted Psych mental status grossly normal, affect normal, speech normal and activity/motor behavior normal Labs Labs Labs: Blood Type A POSITIVE Antibody Screen NEGATIVE Hct 32.6 % (37-47) L Hgb 10.4 g/dL (12.0-15.0) L Obstetrics US Rubella IgG Antibody Reactive (Nonreactive) Hep Bs Antigen Non-Reactive (Nonreactive) HIV 1&2 Antibody Non-Reactive (Nonreactive) C.trachomatis DNA (PCR) Negative (Negative) Glucose 1 Hr 50 gm 135 mg/dL (70-140) Group B Strep DNA Negative (Negative) Rhogam given: No Miscellaneous Test Assessment & Plan (1) History of : COMMENT: previous cs x 3 plan RLTCS. 12/09/20 @ 7:30am PLAN: Presents for scheduled RCD (2) depression: COMMENT: declines meds, encouraged counseling 09/24 stable (3) : QUALIFIERS: Weeks of gestation: 38 weeks Qualified Code(s): Z3A.38 - 38 weeks gestation of COMMENT: genetic testing- low risk; carrier-neg ; declined AFP. NL anatomy (4) Supervision of high risk , antepartum: COMMENT: PRR VALENTIN 12/15/2020 girl! 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 placenta anterior 09/23 stable (7) Abnormal glucose affecting : COMMENT: 3 hr GTT normal
[2020-12-09] MEDS: Cefazolin 2 GM in 0.9% Normal Saline 100 ML IV (07:30)
[2020-12-09 08:36] LABS: Chlamydia Trachomatis by PCR Negative (Negative); Neisserai gonorrhoeae by PCR Negative (Negative); Probe Check PASS; Sample Adequacy Control PASS; Specimen Processing Control PASS
--- NOTE | 2020-12-09 08:49 | OP.PCM_ITS ---
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 placenta anterior 09/23 stable (4) Short interval between pregnancies affecting , antepartum: (5) Supervision of high risk , antepartum: COMMENT: PRR VALENTIN 12/15/2020 girl! Rod PC: Medina Kerns Sophia Spouse: Alvin (6) : QUALIFIERS: Weeks of gestation: 38 weeks Qualified Code(s): Z3A.38 - 38 weeks gestation of COMMENT: genetic testing- low risk; carrier-neg ; declined AFP. NL anatomy (7) depression: COMMENT: declines meds, encouraged counseling 09/24 stable (8) History of : COMMENT: previous cs x 3 plan RLTCS. 12/09/20 @ 7:30am Maternal Data Information VALENTIN Calculator Estimated Delivery Date Method Current WG Current Estimate 12/15/20 Ultrasound #1 39w 1d Details Operative Information Date of Procedure: 12/09/20 Pre-Operative Diagnosis: Term , history of x3, desires permanent sterilization Post-Operative Diagnosis: Same Indications for : Repeat Elective and Desires elective sterilization Indications Narrative: 25-year-old G4, P3 at 30 weeks gestation presents for repeat and tubal ligation. Classification: Scheduled Procedure Type: low transverse (With bilateral salpingectomy) information analyst #1: Shaggy Dia Type of Anesthesia: Spinal Antibiotic Given: Ancef 2 grams IV x1 Drain: Dior to straight drain Estimated Blood Loss: 800 cc Findings Description of Procedure: The patient is a G4, P3 at 39 weeks gestation who presented for repeat . Spinal anesthesia was placed without difficulty. Dior catheter was placed. The patient was placed in the dorsal supine position with leftward tilt. Patient was prepped and draped in the normal sterile fashion. Pfannenstiel skin incision was made with the scalpel and carried through to the underlying layer of fascia with the scalpel. Fascia was nicked in the midline and the incision extended laterally. The rectus bellies were dissected off superiorly and inferiorly with out complication both sharply and bluntly. The peritoneum was entered digitally. At this point, an extremely thin lower uterine segment with a uterine window was noted. A bladder flap was developed using Metzenbaum scissors. After developing the bladder flap, the uterus was entered bluntly. The incision was stretched and a low transverse uterine incision was made with the scalpel. A tight band of tissue was noted on the muscle during the initial attempt to deliver the . Bandage scissors were used to make a small incision in the muscle. The infant's head was delivered atraumatically followed by the anterior and posterior shoulders without complication the rest of the delivered. The cord was clamped and cut and the was handed off to awaiting nurse. The placenta was delivered spontaneously immediately following and was noted to be intact and have a three-vessel cord. The uterus was exteriorized cleared of all clots and debris, and the incision was closed in a double layer closure using #1 Monocryl. The ovaries and fallopian tubes were noted to be within normal limits. The LigaSure device was used to cauterize and transect the mesosalpinx to remove both fallopian tubes. The uterus was returned to the maternal abdomen and gutters were cleared of all clots and debris. The peritoneum was closed with 3-0 Monocryl in a running fashion. Gloves were changed prior to fascial closure. Fascia was closed with 0 PDS in a running fashion. Subcutaneous tissue was copiously irrigated and the skin was closed with 3-0 Monocryl in a subcuticular fashion. Mepilex dressing was applied without complication. Patient was taken to recovery in stable condition. Presentation: Positive for Vertex and AMIRA Amniotic Membrane Rupture Type: Artificial Amniotic Fluid Description: Clear Placental Delivery Description: Spontaneous Placenta Disposition: [facility] Cord Vessel Description: 3 Vessels Cord Entanglement: None A Gender: Female Delayed Cord Clamping: Yes Complications Risks of Surgery Discussed w/Patient: Bleeding, Anesthesia Risks, Infection, Need for Future C-Sections, Permanency, Failure Rate of 1 to 2% and Injury to s urrounding structure(s) including bowel and bladder Complications: Uterine window Procedures Urinary/Genital 52xxx-59xxx: 83920 C/S+TL
[2020-12-09] MEDS: Oxytocin 30 units/NS 500 ml 30 UNITS/500 ML IV.SOLN 334 UNITS IV (09:05)
[2020-12-09] MEDS: Methylergonovine 0.2 MG/ML Ampul IM (09:13)
--- NOTE | 2020-12-09 09:32 | FALS_PTH ---
PATIENT: ED MACE LOC: [facility] U#:[id number] AGE/SX: 25/F ROOM: WP007 RE12/09/[address]: Dr. Milli Caballero MD : [id number] BED: 1 DIS: 12/10/2020 SPEC #: [id number] RECD: 12/09/20 10:07 STATUS: ANYI SMALLS #: [id number] HARRY: 12/09/20 09:[address]: Milli Cbaallero DEPT: SURGICAL PATHOLOGY RECD BY: Shaihda Shen ENTERED: 12/09/20 10:08 SP TYPE: FALL TUBES OTHR DR: Dr. Darek Mitchell MD Tissues: Fallopian tube Procedures: Surgery Specimen Level II HEADER OPERATION: Tubal ligation PRE-OP DIAGNOSIS: Sterilization TISSUE SUBMITTED: Fallopian tubes MICROSCOPIC DIAGNOSIS Right fallopian tube, salpingectomy: Complete segment of fallopian tube with no pathologic change. Left fallopian tube, salpingectomy: Complete segment of fallopian tube with no pathologic change. AM:katlin 12/10/2020 MICROSCOPIC DESCRIPTION Slides are reviewed. GROSS DESCRIPTION Received in fixative is one container labeled with the patient's name and designated bilateral fallopian tubes, suture on right. The specimen consists of bilateral fallopian tubes including fimbrial ends. The right fallopian tube measures 6.5 cm in length and 0.6 cm in diameter and the left fallopian tube measures 6.5 cm in length and 0.6 cm in diameter. Sections reveal unremarkable cut surfaces. Executive Sales Assistant sections are submitted in two cassettes as follows: 1 ? right fallopian tube, 2 ? left fallopian tube. / SJ:rg 12/09/20 TC:4 CPT: 55914 x2
--- NOTE | 2020-12-09 09:39 | NURSING ---
Several small clots passed with fundal check. RN noted pitocin from OR not infusing. Pitocin rate set at 334 cc/hr and placed on IV pump.
[2020-12-09 09:43] LABS: Pathology Specimen OB SEE PATHOLOGY REPORT
--- NOTE | 2020-12-09 09:48 | NURSING ---
0910-Several small clots passed again with fundal check. Pitocin increased to 999cc/hr. Pt n/v with BP 90/43. HOB lowered with some relief, At 0913 Methergine given in L thigh. battery recharger notified of events and hemorrhage cart brought to room. Dr. Caballero informed of bleeding and pitocin and methergine administrations.
[2020-12-09] MEDS: Oxytocin 30 units/NS 500 ml 30 UNITS/500 ML IV.SOLN 167 UNITS IV (10:00)
[2020-12-09] MEDS: Lactated Ringers 1,000 ML 100 ML IV ×2 (10:22→16:58)
[2020-12-09] MEDS: Ketorolac 30 MG/ML Syringe IV ×3 (10:29→22:23)
--- NOTE | 2020-12-09 11:02 | NURSING ---
Quantitative blood loss during recovery 372 ml
--- NOTE | 2020-12-09 11:14 | PCM.DC ---
Discharge Instructions Diet Discharge Diet: No restrictions Activity May resume sexual activity in: 4-6 weeks Lifting Restrictions: 20 lbs Additional Activity Instructions:: Nothing in the vagina for 4-6 weeks. You may return to work/school in 6 weeks. Dressing / Incision Call your doctor if your incision/area has: Continuous Slow Oozing, Sudden Increased Bleeding, Increased Pain/ Swelling, Increased Redness and Foul Smelling Discharge Call your doctor if you observe: Fever of 101 or Higher Suture Line Care: Avoid Pulling/Pushing and Avoid Pinching/Bending Remove Dressing in: 1 week Follow Up Care When: Call to make an appointment with your doctor for an incision check in 1-2 weeks. You will also need a 6 week post- follow up appointment. Test Results: Test results from this visit will be discussed in further detail at your follow-up appointment, if applicable. Discharge Plan Admission Admit Date/Time: 12/09/20 05:00 Attending Provider: Milli Cablalero Primary Care Provider: Darek Mitchell Instructions Patient Instructions: After a Discharge Orders/Prescriptions Prescriptions: New ibuprofen 800 mg tablet 800 mg PO Q8H PRN (Reason: pain) Qty: 30 RF: 1 oxycodone 5 mg capsule 5 mg PO Q6H PRN (Reason: pain) 7 Days Qty: 15 RF: 0 Continued ondansetron HCl 4 mg tablet 4 mg PO Q8H PRN (Reason: nausea and vomiting) Qty: 90 RF: 4 vit,[id number] 1 TABLET tablet 1 tab PO DAILY RF: 0 Referrals / Follow Up: Darek Mitchell MD [Primary Care Provider] -
[2020-12-09] MEDS: Ondansetron 4 MG/2 ML Vial IV (13:14)
[2020-12-09] MEDS: Enoxaparin 40 MG/0.4 ML Syringe SC (20:08)
--- NOTE | 2020-12-09 23:30 | NURSING ---
Decision made to keep urinary catheter in until 2324 due to pt's nausea and vomiting, low urine output, and concentrated, tri urine.
[2020-12-10 04:19] VITALS: BP 92/56; PULSE 65; RESP 16; TEMP 36.7; O2SAT 97
[2020-12-10] MEDS: Ketorolac 30 MG/ML Syringe IV (04:55)
[2020-12-10 04:57] VITALS: BP 98/53; PULSE 71
[2020-12-10] MEDS: Acetaminophen 500 MG Tablet 1000 MG PO ×2 (06:01→11:31)
[2020-12-10 06:17] LABS: Hematocrit 28.7 % (37-47); Mean Corp Hgb Conc 31.4 g/dL (32-36); Mean Corpuscular Hgb 23.1 pg (27.0-32.0); Mean Corpuscular Volume 73.6 fL (81-99); Mean Platelet Vol. 11.2 fl (6.2-12.0); Platelet Count 239 K/mm3 (150-450); RBC Distribution Width CV 14.7 % (11.6-14.6); RBC Distribution Width SD 39.3 fl (35.1-43.9); White Blood Count 7.6 K/mm3 (4.4-11.0)
--- NOTE | 2020-12-10 07:45 | PCM.PN.OB ---
Subjective Subjective Patient doing well without complaints. Tolerating PO. Ambulating and voiding without difficulty. Feeding well. Denies chest pain, shortness of breath, calf pain/swelling, fevers, chills, lightheadedness. Objective Data Objective Data Vital Signs: Vital Signs Temp Pulse Resp BP Pulse Ox 98.1 F 71 16 98/53 L 97 12/10/20 04:19 12/10/20 04:57 12/10/20 04:19 12/10/20 04:57 12/10/20 04:19 Oxygen Delivery Method Room Air Weight: 194 lb 10.691 oz Body Mass Index (BMI) 34.4 Intake & Output: Intake and Output for Last 24 Hours 12/08/20 12/09/20 12/10/20 23:59 23:59 23:59 Intake Total 6478.79 / 6478.79 Output Total 900 / 900 275 / 275 Balance 5578.79 / 5578.79 -275 / -275 Lab / Micro Data Result Diagrams: 12/10/20 06:08 Labs: Laboratory Results - last 24 hr 12/09/20 06:15: Chlam trachomat DNA PCR Negative, N.gonorrhoeae DNA (PCR) Negative 12/10/20 06:08: WBC 7.6, RBC 3.90 L, Hgb 9.0 L, Hct 28.7 L, MCV 73.6 L, MCH 23.1 L, MCHC 31.4 L, RDW Std Deviation 39.3, RDW Coeff of Tamiko 14.7 H, Plt Count 239, MPV 11.2 Micro: Microbiology 12/09/20 05:30 Mucosa - Nose SARS-CoV-2 Antigen (Rapid) - Final Physical Exam Const alert and oriented x3 HEENT normocephalic Eyes PERRL Neck full ROM Resp normal respiratory effort GI soft to palpation GI Narrative: FF below U. Dressing dry and intact Palpation: tender other (appropriately) Assessment & Plan (1) delivery delivered: COMMENT: GP 12/09 Girl Rod RCD w/BTL PLAN: s/p LTCS PPD # 1 1. routine post care 2. breast feeding- support given 3. rh positive 4. rubella immune 5. home today
[2020-12-10 08:42] VITALS: BP 102/54; PULSE 83; RESP 16; TEMP 36.2; O2SAT 98
[2020-12-10] MEDS: Ibuprofen 600 MG Tablet PO (09:37)
[2020-12-10] MEDS: Senna/Docusate Sodium 1 Tablet PO (09:37)
[2020-12-10 11:34] VITALS: BP 91/39; PULSE 67; RESP 18; TEMP 36.5; O2SAT 96
== END 2020-12-10 14:15 | disposition home or self-care (01) | DRG 797 ==
PROVIDERS: Obstetrics & Gynecology; Admitting Provider Obstetrics & Gynecology; PCP Family Medicine; Visit Provider Obstetrics & Gynecology
PROC: 10E0XZZ Delivery of Products of Conception, External Approach (ICD-10-PCS; CPT 59514; principal; 2020-12-09 07:15)
DX: O65.5 Obstructed labor due to abnormality of maternal pelvic organs (principal); K50.90 Crohn's disease, unspecified, without complications; Z37.0 Single live birth; O34.211 Maternal care for low transverse scar from previous cesarean delivery; N85.8 Other specified noninflammatory disorders of uterus; Z3A.39 39 weeks gestation of pregnancy; Z30.2 Encounter for sterilization; Z83.3 Family history of diabetes mellitus; O99.62 Diseases of the digestive system complicating childbirth
CPT/HCPCS: 59025; 85025; 85027; 86850; 86900; 86901; 87426; 87491; 87591; 88302; 99218; J7120; G0378; J2405

== ENCOUNTER 2020-12-12 14:37 | Emergency (ER) | payer MEDICAID, SELFPAY ==
[2020-12-09 05:17] VITALS: BMI 34.4
[2020-12-12 14:37] VITALS: BP 127/81; PULSE 89; RESP 18; TEMP 36; O2SAT 98; BMI 32.7
--- NOTE | 2020-12-12 14:54 | EDS_ITS ---
HPI History of Present Illness Chief Complaint: Headache Informant: patient Onset/Context/Timing Onset: Yesterday Context: Gradual Onset Current Severity: Moderate Maximum Severity: Moderate Narrative Narrative: Patient presents secondary to headache. She had a 3 days ago and was discharged in the hospital the following day. Yesterday she developed gradual onset of headache and back tightness. She believes she has a spinal headache. She has been trying ibuprofen and Tylenol without improvement. She does report light sensitivity. PFSH PFSH Medical History Crohn disease Home Medications vit,luph86-ohqk-awwhx 1 tab PO DAILY 08/07/19 [History Last Taken 2 Weeks Ago ~11/25/20] ondansetron HCl 4 mg tablet 4 mg PO Q8H PRN #90 tab 07/12/20 [Rx Last Taken 12/08/20] ibuprofen 800 mg PO Q8H PRN #30 tab 12/09/20 [Rx Last Taken Unknown] oxycodone 5 mg PO Q6H PRN 7 Days #15 cap 12/09/20 [Rx Last Taken Unknown] fluconazole 150 mg tablet 150 mg PO ONCE #1 tab 12/10/20 [Rx Last Taken Unknown] nyoeabllwv-kztvanoyodcdy-hunm [Fioricet] 1 cap PO Q8H PRN #14 cap 12/12/20 [Rx Last Taken Unknown] Allergy/AdvReac Type Severity Reaction Status Date / Time No Known Allergies Allergy Verified 12/12/20 14:37 Family History Mother Diabetes Thyroid disorder Surgical History deliv due to previous difficult deliv, deliv, curr hospitaliz Left ovarian cyst Status post bilateral salpingectomy Teague teeth extracted Social History household members: family number of children: 3 current occupational status: employed 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 Smoking Status: Never smoker alcohol intake: never substance use type: does not use caffeine: Yes Type: tea Number of servings: 1 seatbelt use: always do you feel safe at home: Yes additional social history: Alvin Daisha [facility] ROS ED Constitutional Constitutional ED: Denies chills or fever(s) Eyes Eyes: Denies change in vision ENT ENT ED: Denies sore throat Cardiovascular Cardiovascular: Denies chest pain Respiratory/Chest Respiratory/Chest: Denies cough or dyspnea Gastrointestinal Gastrointestinal: Denies abdominal pain, diarrhea, nausea or vomiting Genitourinary Genitourinary ED: Denies dysuria Musculoskeletal Musculoskeletal: Reports arthralgias, back pain, myalgias and neck pain Integumentary Denies rash Neurologic Neurologic: Reports headache(s); Denies weakness Psychiatric Psychiatric: Denies anxiety or depression Endocrine Endocrinology: Denies polydipsia or polyuria Allergic/Immunologic Allergic/Immunologic ED: Denies urticaria EXAM Physical Exam Narrative Exam Narrative: Patient sitting upright in bed. Tearful. Const Vital Signs: 12/12/20 14:37 12/12/20 17:00 Temperature 96.8 F L Temperature Source Temporal Pulse Rate 89 76 Respiratory Rate 18 16 Blood Pressure 127/81 H 129/85 H Blood Pressure Mean 96 99 Pulse Ox 98 98 Oxygen Delivery Method Room Air Room Air Positive well nourished and well developed General Appearance ED: well developed HEENT Reports normocephalic and head/scalp atraumatic Eyes PERRL and EOMs intact bilaterally Neck supple Chest Wall inspection of chest normal and palpation of chest normal Resp normal respiratory effort and clear to auscultation bilaterally Cardio regular rate and regular rhythm GI normal to inspection, nondistended, normoactive bowel sounds Palpation: soft Back/Spine Back/Spine Narrative: Bar spine clean with no surrounding tenderness or erythema. Extremity normal to inspection Neuro oriented x3 and no sensory deficits noted Sensorium / Orientation: alert Motor Exam: strength 5/5 throughout Psych Mood & Affect: tearful Skin no rashes or lesions noted MDM MDM MDM Narrative Medical decision making narrative: Patient was initially ordered Toradol, Reglan, Benadryl, and IV caffeine. She declined the Reglan and Benadryl secondary to breast-feeding. Lab Data Attestation: I reviewed the patient's lab results. Labs: Laboratory Results - last 24 hr 12/12/20 12/12/20 15:00 15:00 WBC 6.2 RBC 4.51 Hgb 10.3 L Hct 33.5 L MCV 74.3 L MCH 22.8 L MCHC 30.7 L RDW Std Deviation 39.9 RDW Coeff of Tamiko 14.9 H Plt Count 331 MPV 10.7 Immature Gran % (Auto) 0.600 Neut % (Auto) 65.3 Lymph % (Auto) 17.[address] [place] % (Auto) 5.8 Eos % (Auto) 10.5 H Baso % (Auto) 0.5 Absolute Neuts (auto) 4.0 Absolute Lymphs (auto) 1.07 Nucleated RBC % 0 Sodium 142 Potassium 3.8 Chloride 108 H Carbon Dioxide 27.0 Anion Gap 7 BUN 4 L Creatinine 0.47 L Estim Creat Clear Calc 152.68 Est GFR (MDRD) Af Amer 207 Est GFR (MDRD) Non-Af 171 BUN/Creatinine Ratio 8.4 L Glucose 83 Calcium 8.8 Treatment and Re-Evaluation Comments:: On repeat evaluation patient states pain is improved, currently rating it at a 6 out of 10 when she initially was 10 out of 10. She is resting with her head elevated approximately 30 or 40 degrees. I did speak with Dr. Garza from anesthesiology who came to see the patient. At this time patient does not want a blood patch. We will write her for Fioricet. If the patient does require return visit Dr. Garza advised that the patient could be seen at the [facility] and taken for a blood patch from there. Discharge Plan Triage Chief Complaint: Headache ED Provider: Ling Izquierdo Dx/Rx/DC Orders Clinical Impression: Cephalgia Instructions: ED Headache Unspecified Prescriptions: New saxpposuck-nhhivnxezffur-qqiy [Fioricet] 50-300-40 mg capsule 1 cap PO Q8H PRN (Reason: headache) Qty: 14 RF: 0 No Action ondansetron HCl 4 mg tablet 4 mg PO Q8H PRN (Reason: nausea and vomiting) Qty: 90 RF: 4 vit,yyol19-yjmw-fewid 1 TABLET tablet 1 tab PO DAILY RF: 0 ibuprofen 800 mg tablet 800 mg PO Q8H PRN (Reason: pain) Qty: 30 RF: 1 oxycodone 5 mg capsule 5 mg PO Q6H PRN (Reason: pain) 7 Days Qty: 15 RF: 0 fluconazole [Diflucan] 150 mg tablet 150 mg PO ONCE Qty: 1 RF: 0 Primary Care Provider: Darek Mitchell Referrals: Milli Caballero MD [STAFF PHYSICIAN] - As Needed Darek Mitchell MD [Primary Care Provider] - Disposition Disposition: Home, Self Care
[2020-12-12 15:10] LABS: Absolute Lymphocyte Count 1.07 X10^3/uL (0.83-4.51); Basophil# 0.03 X10^3/uL; Basophil% 0.5 % (0-1); Eosinophil# 0.65 X10^3/uL; Eosinophils% 10.5 % (0-5); Hematocrit 33.5 % (37-47); Hemoglobin 10.3 g/dL (12.0-15.0); Lymphocyte # 1.07 X10^3/ul (0.83-4.51); Lymphocyte % 17.3 % (19-41); Mean Corp Hgb Conc 30.7 g/dL (32-36); Mean Corpuscular Hgb 22.8 pg (27.0-32.0); Mean Corpuscular Volume 74.3 fL (81-99); Mean Platelet Vol. 10.7 fl (6.2-12.0); Monocyte# 0.36 X10^3/uL; Monocyte% 5.8 % (0-10); NRBC Flagged by Analyzer 0 % (0-5); Neutrophil # 4.02 X10^3/uL (2.7-7.7); Neutrophil % 65.3 % (47-70); Platelet Count 331 K/mm3 (150-450); RBC Distribution Width CV 14.9 % (11.6-14.6); RBC Distribution Width SD 39.9 fl (35.1-43.9); Red Blood Count 4.51 M/mm3 (4.2-5.4); White Blood Count 6.2 K/mm3 (4.4-11.0)
[2020-12-12] MEDS: Ketorolac 30 MG/ML Syringe IV (15:18)
[2020-12-12 15:22] LABS: Anion Gap 7 (5-15); BUN 4 mg/dL (7-18); BUN/Creat Ratio 8.4 RATIO (10-20); Calcium,Total 8.8 mg/dL (8.5-10.1); Chloride 108 mmol/L (98-107); Creatinine, Serum 0.47 mg/dL (0.55-1.02); EST Glomerular Filtration Rate 171 mL/min (>60); Est Glom Filt Rate - Afr Amer 207 mL/min (>60); Estimated Creatinine Clearance 152.68 ml/min; Glucose 83 mg/dL (74-106); Potassium 3.8 mmol/L (3.5-5.1); Sodium Level 142 mmol/L (136-145)
[2020-12-12 17:00] VITALS: BP 129/85; PULSE 76; RESP 16; O2SAT 98
[2020-12-12 18:21] VITALS: RESP 16
== END 2020-12-12 18:22 | disposition home or self-care (01) ==
PROVIDERS: Emergency Provider Emergency Medicine; PCP Family Medicine
DX: E51.9 Thiamine deficiency, unspecified (principal); K50.90 Crohn's disease, unspecified, without complications
CPT/HCPCS: 80048; 85025; 96361; 96374; 96375; 99283; J7040; A4216

== ENCOUNTER → 2020-12-13 12:51 | Outpatient (CLI) | payer MEDICAID, SELFPAY ==
[2020-12-13 09:18] VITALS: BMI 32.7
== END ==
PROVIDERS: PCP Family Medicine; Referring Provider Obstetrics & Gynecology; Visit Provider Obstetrics & Gynecology
DX: N89.8 Other specified noninflammatory disorders of vagina (principal)
CPT/HCPCS: 87070; 87205

== ENCOUNTER 2021-06-23 14:48 | Outpatient (CLI) | payer OTHER, MEDICAID, SELFPAY ==
[2021-06-23 17:40] LABS: Absolute Lymphocyte Count 3.52 X10^3/uL (0.83-4.51); Basophil# 0.08 X10^3/uL; Basophil% 0.9 % (0-1); Eosinophil# 0.67 X10^3/uL; Eosinophils% 7.6 % (0-5); Hematocrit 38.7 % (37-47); Hemoglobin 13.4 g/dL (12.0-15.0); Lymphocyte # 3.52 X10^3/ul (0.83-4.51); Lymphocyte % 39.8 % (19-41); Mean Corp Hgb Conc 34.6 g/dL (32-36); Mean Corpuscular Hgb 27.6 pg (27.0-32.0); Mean Corpuscular Volume 79.8 fL (81-99); Mean Platelet Vol. 11.1 fl (6.2-12.0); Monocyte# 0.52 X10^3/uL; Monocyte% 5.9 % (0-10); NRBC Flagged by Analyzer 0 % (0-5); Neutrophil # 4.03 X10^3/uL (2.7-7.7); Neutrophil % 45.6 % (47-70); Platelet Count 374 K/mm3 (150-450); RBC Distribution Width CV 12.9 % (11.6-14.6); RBC Distribution Width SD 37.1 fl (35.1-43.9); Red Blood Count 4.85 M/mm3 (4.2-5.4); White Blood Count 8.8 K/mm3 (4.4-11.0)
[2021-06-23 17:58] LABS: Vitamin B12 562 pg/mL (211-911)
[2021-06-23 18:08] LABS: AST(SGOT) 13 U/L (15-37); Alanine Aminotransfer ALT/SGPT 22 U/L (13-56); Albumin, Serum 3.8 g/dL (3.2-5.0); Alkaline Phosphatase 76 U/L (45-117); Anion Gap 5 (5-15); BUN 10 mg/dL (7-18); BUN/Creat Ratio 14.5 RATIO (10-20); Calcium,Total 8.6 mg/dL (8.5-10.1); Chloride 106 mmol/L (98-107); Creatinine, Serum 0.69 mg/dL (0.55-1.02); EST Glomerular Filtration Rate 110 mL/min (>60); Est Glom Filt Rate - Afr Amer 134 mL/min (>60); Ferritin 13 ng/mL (8-252); Glucose 65 mg/dL (74-106); Iron 37 ug/dL (50-170); Iron Binding Capacity,Total 347 ug/dL (250-450); Magnesium 2.3 mg/dL (1.6-2.6); Potassium 3.5 mmol/L (3.5-5.1); Protein, Total 7.8 g/dL (6.4-8.2); Sodium Level 141 mmol/L (136-145); Thyroid Stim Hormone (TSH) 1.82 uIU/mL (0.358-3.74)
== END 2021-06-23 23:59 | disposition home or self-care (01) ==
PROVIDERS: PCP Family Medicine; Referring Provider Family Medicine; Visit Provider Family Medicine
DX: E61.1 Iron deficiency (principal); K50.90 Crohn's disease, unspecified, without complications
CPT/HCPCS: 36415; 80053; 82607; 82728; 83540; 83550; 83735; 84443; 85025

== ENCOUNTER 2021-07-15 16:06 | Outpatient (CLI) | payer OTHER, MEDICAID, SELFPAY ==
[2021-07-15 17:57] LABS: Absolute Lymphocyte Count 3.04 X10^3/uL (0.83-4.51); Absolute Neutrophil Count 4.1 X10^3/uL (2.0-7.7); Basophil# 0.08 X10^3/uL; Basophil% 0.9 % (0-1); Eosinophil# 0.67 X10^3/uL; Eosinophils% 7.9 % (0-5); Hematocrit 37.9 % (37-47); Hemoglobin 12.6 g/dL (12.0-15.0); Lymphocyte # 3.04 X10^3/ul (0.83-4.51); Lymphocyte % 35.9 % (19-41); Mean Corp Hgb Conc 33.2 g/dL (32-36); Mean Corpuscular Hgb 26.5 pg (27.0-32.0); Mean Corpuscular Volume 79.8 fL (81-99); Mean Platelet Vol. 11.2 fl (6.2-12.0); Monocyte% 5.9 % (0-10); NRBC Flagged by Analyzer 0 % (0-5); Neutrophil # 4.14 X10^3/uL (2.7-7.7); Platelet Count 364 K/mm3 (150-450); RBC Distribution Width CV 13.2 % (11.6-14.6); RBC Distribution Width SD 37.7 fl (35.1-43.9); Red Blood Count 4.75 M/mm3 (4.2-5.4); White Blood Count 8.5 K/mm3 (4.4-11.0)
[2021-07-15 18:15] LABS: Ferritin 17 ng/mL (8-252); Iron 36 ug/dL (50-170); Iron Binding Capacity,Total 346 ug/dL (250-450)
== END 2021-07-15 23:59 | disposition home or self-care (01) ==
LOC: MTLAB 16:08
PROVIDERS: PCP Family Medicine; Referring Provider Family Medicine; Visit Provider Family Medicine
DX: E61.1 Iron deficiency (principal)
CPT/HCPCS: 36415; 82728; 83540; 83550; 85025

== ENCOUNTER 2021-08-01 16:11 | Outpatient (CLI) | payer OTHER, MEDICAID, SELFPAY ==
[2021-08-01 17:21] LABS: CRP 7.92 mg/L (0.0-3.0); Erythrocyte Sedimentation Rate 14 mm/hr (0-30)
[2021-08-04 09:02] LABS: Hepatitis B Surface Antibody Reactive; Rubella IgG Reactive (Nonreactive)
[2021-08-05 00:06] LABS: HEPATITIS B SURFACE AG Negative (Negative); Hepatitis A IgM Antibody Negative (Negative); Hepatitis B Core AB IgM Negative (Negative); QNTFERON TB Mitogen Value > 10.00 IU/mL (.); QNTFERON TB Nil Value 0.02 IU/mL (.); QNTFERON TB1+ Ag Value 0.01 IU/mL (.); QNTFERON TB2+ Ag Value 0.01 IU/mL (.)
[2021-08-05 11:33] LABS: Hep C Antibodies 0.1 s/co ratio (0.0-0.9); Mumps Antibody,IgG 10.2 AU/mL (Immune >10.9); QNTIFERON TB Positive Criteria Negative (Negative); V-Zoster IgG (Immunity) 1559 index (Immune >165)
[2021-08-05 11:34] LABS: B. pertussis IgG 1.58 index (0.00-0.94)
== END 2021-08-01 23:59 | disposition home or self-care (01) ==
PROVIDERS: PCP Family Medicine; Visit Provider Nurse Practitioner Adult Health
DX: R19.7 Diarrhea, unspecified (principal); K50.90 Crohn's disease, unspecified, without complications
CPT/HCPCS: 36415; 80074; 85652; 86140; 86480; 86664; 86706; 86735; 86762; 86765; 86787

== ENCOUNTER 2021-08-08 13:03 | Outpatient (CLI) | payer OTHER, MEDICAID, SELFPAY ==
--- NOTE | 2021-08-08 13:05 | ECHOD_ITS ---
Reason For Study: Murmur Procedure This was a 2D Doppler, Color Flow transthoracic echocardiogram. Exam performed in department. Left Ventricle Normal LV size. Left ventricular systolic function is normal. The estimated ejection fraction is 60 %. No regional wall motion abnormalities noted. Right Ventricle Normal RV size. Normal systolic function. Atria Normal left atrium. Normal right atrium. Mitral Valve Normal mitral valve. Tricuspid Valve Normal tricuspid valve. Aortic Valve Normal aortic valve. Trisinus/trileaflet aortic valve. Pulmonic Valve Normal pulmonic valve. Great Vessels Normal aortic root. The pulmonary artery is normal size. Normal inferior vena cava. Pericardium/Pleural No pericardial effusion. MMode/2D Measurements & Calculations LVIDd: 4.2 cm IVSd: 0.89 cm Ao root diam: 2.5 cm LVIDs: 2.3 cm LVPWd: 0.96 cm LA dimension: 4.0 cm RVDd: 3.2 cm FS: 45.3 % LAV(MOD-bp): 36.2 ml LA A4 area: 14.8 cm2 RA A4 area: 15.6 cm2 LAV(MOD-bp) Indexed: 19.4 ml/m2 LAV(MOD-sp2): 34.8 ml LAV(MOD-sp4): 37.1 ml Time Measurements MV dec time: 0.25 sec Doppler Measurements & Calculations MV E max jarvis: 117.6 cm/sec Lat Peak E' Jarvis: 18.9 cm/sec Med Peak E' Jarvis: 14.7 cm/sec MV A max jarvis: 66.3 cm/sec E/E' lat: 6.2 E/E' med: 8.0 MV E/A: 1.8 MV V2 max: 133.9 cm/sec MV P1/2t max jarvis: 135.8 cm/sec Ao V2 max: 144.5 cm/sec MV max P.2 mmHg MV P1/2t: 64.0 msec Ao max P.3 mmHg MV V2 mean: 56.7 cm/sec MV dec slope: 621.8 cm/sec2 MV mean P.7 mmHg MVA(P1/2t): 3.4 cm2 MV V2 VTI: 40.2 cm LV V1 max: 131.9 cm/sec PA V2 max: 109.8 cm/sec LV V1 max P.0 mmHg ECHO/Echo Complete Interpretation Summary Normal LV size. Left ventricular systolic function is normal. The estimated ejection fraction is 60 %. Structurally normal valves. Ordering Physician: Darek Mitchell Referring Physician: Darek Mitchell Performed By: Toro Vasquez RCS
[2021-08-13 11:29] LABS: Calprotectin, Stool 116 ug/g (0-120)
== END 2021-08-08 23:59 | disposition home or self-care (01) ==
LOC: CVS 13:04
PROVIDERS: Nurse Practitioner Adult Health; PCP Family Medicine; Visit Provider Family Medicine
DX: R01.1 Cardiac murmur, unspecified (principal); K50.90 Crohn's disease, unspecified, without complications; R19.7 Diarrhea, unspecified
CPT/HCPCS: 83630; 83993; 87177; 87209; 87329; 87493; 87506; 93306

== ENCOUNTER 2021-08-15 14:10 | Outpatient (CLI) | payer OTHER, MEDICAID, SELFPAY ==
--- NOTE | 2021-08-15 14:11 | CT_ITS ---
STUDY: CT Abdomen And Pelvis W/ Contrast Injection 08/15/2021 9:54 PM REASON FOR EXAM: Female, 25 years old. ABDOMINAL PAIN Crohn''s, diarrhea, abd pain -- oral and IV please TECHNIQUE: Transaxial images were obtained with oral contrast, and with IV 100mL Isovue-300 intravenous contrast. Individualized dose optimization techniques were used for this CT. COMPARISON: None. FINDINGS: The visualized lung bases are unremarkable. The visualized portions of the heart are within normal limits. Normal liver. Normal gallbladder and extrahepatic biliary system. Normal spleen. Normal pancreas. Normal bilateral adrenal glands. No acute findings of the right kidney. No acute findings of the left kidney. Fluid and debris-filled distention of the stomach. Patient likely postprandial Normal small intestine. Stool throughout the colon. The appendix is visualized and appears normal. There are no acute findings of the abdominal aorta. Normal inferior vena cava. Subcentimeter mesenteric lymph nodes. Normal urinary bladder. Normal abdominal wall. Normal osseous structures. IMPRESSION: (NOT LISTED IN ORDER OF SIGNIFICANCE) Fluid and debris-filled distention of the stomach. Patient likely postprandial Other findings as above. Electronically Signed: Lopez Patton MD at 21:56 EDT Reading Location ID and State: [facility] / [place] , Service support , CT/Abdomen/Pelvis WITH Contrast
== END 2021-08-15 23:59 | disposition home or self-care (01) ==
LOC: CT 14:10
PROVIDERS: PCP Family Medicine; Referring Provider Nurse Practitioner Adult Health; Visit Provider Nurse Practitioner Adult Health
DX: K50.90 Crohn's disease, unspecified, without complications (principal); R19.7 Diarrhea, unspecified; R10.9 Unspecified abdominal pain
CPT/HCPCS: 74177; Q9967; A4216

== ENCOUNTER → 2021-09-08 | Outpatient (CLI) | payer OTHER, MEDICAID, SELFPAY ==
[2021-09-08 12:38] VITALS: BP 118/68; PULSE 103; RESP 16; TEMP 36.3; O2SAT 96; BMI 34.8
[2021-09-08] MEDS: 0.9% NaCl Peripheral Flush Adult/Peds IV (12:40)
[2021-09-08] MEDS: 0.9% NaCl IVPB Med Flush (250 mL) 15 ML IV (12:56)
[2021-09-08 14:24] VITALS: BP 108/64; PULSE 93; RESP 16
== END | disposition home or self-care (01) ==
LOC: MEDOUTP 12:32
PROVIDERS: PCP Family Medicine; Referring Provider Internal Medicine Gastroenterology; Visit Provider Internal Medicine Gastroenterology
DX: K50.90 Crohn's disease, unspecified, without complications (principal)
CPT/HCPCS: 96365; 96366; J7050; A4216; J3358

== ENCOUNTER → 2021-09-09 | Outpatient (CLI) | payer OTHER, MEDICAID, SELFPAY ==
--- NOTE | 2021-09-09 12:50 | NM_ITS ---
Gastric emptying study INDICATION: Abdominal pain, enlarged stomach. TECHNIQUE: After the administration of 1 mCi of technetium 99m sulfur colloid in a meal of oatmeal orally, multiple scintigraphic images of the abdomen were obtained. Furthermore, counts were obtained and a gastric emptying curve was plotted. FINDINGS: Normal uptake is seen within the stomach with passage through the duodenum into the small bowel. After 1 hour, there is 53% gastric retention which is normal. T1 half is 58 minutes which is normal. NM/Gastric Emptying Study IMPRESSION: Normal gastric emptying. Electronically Signed: Jeferson Nuñez MD at 14:37 EDT ,
== END | disposition home or self-care (01) ==
LOC: NM 12:48
PROVIDERS: PCP Family Medicine; Visit Provider Nurse Practitioner Adult Health
DX: R10.9 Unspecified abdominal pain (principal)
CPT/HCPCS: 78264; A9541

== ENCOUNTER 2021-10-30 09:25 | Day surgery (SDC) | payer OTHER, MEDICAID, SELFPAY ==
[2021-10-30] VITALS (7 sets, daily range): BP systolic 94–108; BP diastolic 53–93; PULSE 55–84; RESP 16; TEMP 35.9–36.3; O2SAT 98–100; BMI 33.5
[2021-10-30] MEDS: Lactated Ringers 1,000 ML 30 ML IV (10:02)
--- NOTE | 2021-10-30 10:21 | HP.PCM_ITS ---
History and Physical Date of Admission: 10/30/21 ED MACE, is a 26 F who presents to the office today for 6 wk f/u Crohn's flare. She is significantly improved on prednisone, started 40 mg daily, she started taper 2 days ago now 20 mg daily. She dislikes taking any meds. She had Stelara infusion on 09/08/21, no issues except w/ adhesive. Has Stelara at home to give self injections. She had been having multiple bouts of watery diarrhea per day, as well as nocturnal diarrhea. Since starting prednisone she has only had diarrhea about 3 times. Most abdominal pain resolved. Has had a random intermittent LUQ pain that she attributes to stress. No nausea, vomiting, heartburn. No blood per rectum. 08/2021 labs--CRP 7.92, stool calprotectin elevated. Other blood and stool tests unremarkable. 08/2021 CT IMPRESSION: Fluid and debris-filled distention of the stomach.? Patient likely postprandial 08/2021 Gastric Emptying Study IMPRESSION:? Normal gastric emptying. ? She was diagnosed at age 9 at [facility]. She presented with chronic vomiting. Her brother Sai Lewis was also diagnosed at age 8 with Crohn's--he has taken Remicade, prednisone. She had never needed prednisone. She was treated with Pentasa from age 9 to age 15, stopped when she had pancreatitis. Did well until about 3 yrs ago, she saw Dr Oropeza, had colonoscopy, she was treated with budesonide, she doesn't think it was effective. Gets occas canker sores in mouth. Occas rashes that she attributes to having sensitive skin. Gets intermittent pains in hips, knees, shoulders; takes ibuprofen or APAP prn with relief Brother--Crohn's Dad--ulcerative colitis Mom--diverticulitis, rheumatoid arthritis, DM She and her have 4 kids under the age of 5. ROS Const Constitutional: Positive for weight change; No fatigue ENT ENT: No difficulty swallowing Gastro GI: Positive for abdominal pain and diarrhea; No belching, bloating, change in bowel habits, change in stool character, coffee ground emesis, constipation, cramping, heartburn, difficulty swallowing, feeling full early, excessive flatus, incontinent of stools, Vomiting blood/hematemesis, Blood in stool, loose stools, Black,tarry stools, nausea/dyspepsia, pain with swallowing, vomiting or other Musc Musculoskeletal: Positive for joint pain Skin Skin: No yellowing of the eye or itchy eyes Psych Psychiatric: No anxiety and No depression Endo Endocrine: Positive for weight change; No fatigue Aller/Imm Allergy/Immunologic: No itchy eyes Brian/Lymp Hematologic/Lymphatic: Positive for easy bruising; No easy bleeding Exam Const General: comfortable, well developed and well groomed Nutritional Appearance: obese GI Palpation: soft and nontender Quality Reporting Tobacco Screening ([facility] 138) Smoking Status: Never smoker Assessment and Plan Assessment and Plan (1) Crohn disease: ?Status:?Acute ?Plan - Miriam Erickson NP, SENIOR TECHNICAL WRITER-C: 26 yr old female with Crohn's disease, inflammatory w/o stricture or fistula. Improved on prednisone. She had Stelara infusion, she will give herself Stelara injections. She can taper off prednisone. She is scheduled for EGD and colonoscopy in October and then 2 wk f/u. I have re-examined the patient. There are no clinical changes since date of exam.
--- NOTE | 2021-10-30 10:30 | IMM_PTH ---
PATIENT: ED MACE LOC: EN U#:[id number] AGE/SX: 26/F ROOM: RE10/30/[address]: Dr. Elliot Orta DO : 1995 BED: DIS: 10/30/2021 SPEC #: [id number] RECD: 10/30/21 13:58 STATUS: ANYI REQ #: [id number] HARRY: 10/30/21 10:[address]: Elliot Orta DEPT: IMMUNOHISTOCHEMISTRY RECD BY: Skylar Cheema ENTERED: 10/30/21 13:58 SP TYPE: IMMUNO OTHR DR: MD Darek Harris MD Tissues: A - Stomach, NOS Procedures: H Pylori (initial) PHYSICIAN & INSTITUTION [place] [id number] SPECIMEN INFORMATION: Tissue Source: A ? Antral ulcer biopsy Clinical Info: Crohn?s disease Specimen Number: [id number] CPT code: 33566 METHODOLOGY: Deparaffinized sections of prefer/formalin-fixed tissue or PAP/DQ stained slides are incubated with monoclonal/polyclonal antibodies/oligonucleotide probes. Localization is made via biotin free immunoperoxidase method. Appropriate controls are performed and reacted as expected. Results on target cell population are indicated in the following table: RESULTS: ANTIBODY / CLONE RESULT Block A H Pylori (polyclonal) negative These tests were developed and their performance characteristics determined by [facility]. They may not have been cleared or approved by the U.S. Food and Drug Administration. The FDA has determined that such clearance or approval is not necessary. The above immunohistochemical/dualISH markers are ordered and reviewed by the Pathologist. INTERPRETATION: A. Antral ulcer, biopsy: Negative for Helicobacter pylori organisms. SJ:katlin 10/31/2021
--- NOTE | 2021-10-30 10:30 | COLBX_PTH ---
PATIENT: ED MACE LOC: EN U#:[id number] AGE/SX: 26/F ROOM: RE10/30/[address]: Dr. Elliot Orta DO : 1995 BED: DIS: 10/30/2021 SPEC #: [id number] RECD: 10/30/21 12:48 STATUS: ANYI REEva #: [id number] HARRY: 10/30/21 10:[address]: Elliot Orta DEPT: SURGICAL PATHOLOGY RECD BY: Cy Dover ENTERED: 10/30/21 13:46 SP TYPE: COLON BX OTHR DR: MD Darek Harris MD Tissues: A - Gastric mucous membrane B - Duodenum, NOS C - Stomach, NOS D - Ileum, NOS E - COLON BIOPSY Procedures: Special Stain Group II Surgery Specimen Level IV Alcian Blue/PAS (control) HEADER OPERATION: Colonoscopy, EGD ([facility]), biopsy PRE-OP DIAGNOSIS: Crohn?s disease TISSUE SUBMITTED: A ? Antral ulcer biopsy, B ? Duodenum biopsy, C ? Proximal stomach biopsy, D ? Terminal ileum biopsy, E ? Random colonic biopsy MICROSCOPIC DIAGNOSIS A. Antral ulcer, biopsy: Mild chronic gastritis. See microscopic description and comment. B. Duodenum, biopsy: Fragments of small intestinal mucosa, no pathologic diagnosis. C. Proximal stomach, biopsy: Fragments of gastroesophageal mucosa with moderate chronic inflammation and mild acute inflammation. Intestinal metaplasia (goblet cell metaplasia) not identified. See comment. D. Terminal ileum, biopsy: Fragments of small intestinal mucosa, no pathologic diagnosis. E. Colon, random biopsy: Fragments of colonic mucosa, no pathologic diagnosis. SJ:katlin 10/31/2021 COMMENT A. The results of immunohistochemistry for Helicobacter pylori will be reported separately ([id number]). C. Alcian blue/PAS stain with matched control is used in the evaluation of the specimen. MICROSCOPIC DESCRIPTION Slides are reviewed. A. The specimen shows fragments of gastric mucosa with chronic inflammatory cell infiltrates in the lamina propria consisting of lymphocytes and plasma cells, consistent with mild chronic gastritis. GROSS DESCRIPTION A - Received in fixative is one container labeled with the patient's name and designated antral ulcer biopsy. The specimen consists of two irregular fragments of light plummer soft tissue that in aggregate measure 0.8 x 0.4 x 0.1 cm. The specimen is totally submitted in one cassette. B - Received in fixative is one container labeled with the patient's name and designated duodenum biopsy. The specimen consists of multiple irregular fragments of light plummer soft tissue that in aggregate measure 0.8 x 0.5 x 0.1 cm. The specimen is totally submitted in one cassette. C - Received in fixative is one container labeled with the patient's name and designated proximal stomach biopsy. The specimen consists of multiple irregular fragments of light plummer soft tissue that in aggregate measure 0.5 x 0.3 x 0.1 cm. The specimen is totally submitted in one cassette. D - Received in fixative is one container labeled with the patient's name and designated terminal ileum biopsy. The specimen consists of multiple irregular fragments of light plummer soft tissue that in aggregate measure 1 x 0.3 x 0.1 cm. The specimen is totally submitted in one cassette. E - Received in fixative is one container labeled with the patient's name and designated random colon biopsy. The specimen consists of multiple irregular fragments of light plummer soft tissue that in aggregate measure 1.5 x 0.5 x 0.1 cm. The specimen is totally submitted in one cassette. / SJ:rg 10/30/2021 TC:3 CPT: 97857 x5, 39547
--- NOTE | 2021-10-30 11:15 | OP.EGD_ITS ---
Patient Name: Daisha Castrejon Procedure Date: 10/30/2021 10:36 AM Date of : 1995 Age: 26 Procedure: Upper GI endoscopy Indications: Epigastric abdominal pain Providers: Elliot Orta DO Referring MD: Darek Mitchell Md Medicines: Monitored Anesthesia Care Patient Profile: This is a 26 year old female. Refer to note in patient chart for documentation of history and physical. Patient has symptoms of acute epigastric abdominal pain. Complications: No immediate complications. Procedure: Pre-Anesthesia Assessment: - Prior to the procedure, a History and Physical was performed, and patient medications and allergies were reviewed. The patient is competent. The risks and benefits of the procedure and the sedation options and risks were discussed with the patient. All questions were answered and informed consent was obtained. Patient identification and proposed procedure were verified by the physician in the pre-procedure area. Mental Status Examination: alert and oriented. Airway Examination: normal oropharyngeal airway and neck mobility. Respiratory Examination: clear to auscultation. CV Examination: normal. Prophylactic Antibiotics: The patient does not require prophylactic antibiotics. Prior Anticoagulants: The patient has taken no previous anticoagulant or antiplatelet agents. ASA Grade Assessment: II - A patient with mild systemic disease. After reviewing the risks and benefits, the patient was deemed in satisfactory condition to undergo the procedure. The anesthesia plan was to use moderate sedation / analgesia (conscious sedation). Immediately prior to administration of medications, the patient was re-assessed for adequacy to receive sedatives. The heart rate, respiratory rate, oxygen saturations, blood pressure, adequacy of pulmonary ventilation, and response to care were monitored throughout the procedure. The physical status of the patient was re-assessed after the procedure. After obtaining informed consent, the endoscope was passed under direct vision. Throughout the procedure, the patient's blood pressure, pulse, and oxygen saturations were monitored continuously. The colonoscope was introduced through the mouth, and advanced to the second part of duodenum. The upper GI endoscopy was accomplished without difficulty. The patient tolerated the procedure well. Scope In: 10:43:44 AM Scope Out: 10:49:55 AM Total Procedure Duration Time 0 hours 6 minutes 11 seconds Findings: LA Grade A (one or more mucosal breaks less than 5 mm, not extending between tops of 2 mucosal folds) esophagitis with no bleeding was found 35 to 36 cm from the incisors. One non-bleeding cratered gastric ulcer with no stigmata of bleeding was found in the prepyloric region of the stomach. The lesion was 6 mm in largest dimension. Biopsies were taken with a cold forceps for histology. Verification of patient identification for the specimen was done. Estimated blood loss was minimal. There also was the presence of a small hiatal hernia One non-bleeding cratered gastric ulcer with no stigmata of bleeding was found in the gastric fundus. The lesion was 6 mm in largest dimension. Biopsies were taken with a cold forceps for histology. Estimated blood loss was minimal. The second portion of the duodenum was normal. Biopsies were taken with a cold forceps for histology. Verification of patient identification for the specimen was done. Estimated blood loss was minimal. Impression: - LA Grade A reflux esophagitis. - Small hiatal hernia - Non-bleeding gastric ulcer with no stigmata of bleeding. Biopsied. - Non-bleeding gastric ulcer with no stigmata of bleeding. Biopsied. - Normal second portion of the duodenum. Biopsied. Recommendation: - Discharge patient to home. - Resume previous diet. - Continue present medications. - Await pathology results. Procedure Code(s): --- Professional --- 34321, Esophagogastroduodenoscopy, flexible, transoral; with biopsy, single or multiple CPT copyright 2017 [employer]. All rights reserved. The codes documented in this report are preliminary and upon vp of technology review may be revised to meet current compliance requirements. Elliot Orta DO 10/30/2021 11:15:09 AM This report has been signed electronically. Number of Addenda: 1 Note Initiated On: 10/30/2021 10:36 AM Addendum Number: 1 Addendum Date: 02/03/2022 5:58:55 AM MAC was used as sedation for this procedure. Elliot Orta DO 02/03/2022 5:59:04 AM This report has been signed electronically.
--- NOTE | 2021-10-30 11:16 | OP.CCLET_ITS ---
02/03/2022 Darek Mitchell [address] [place] [address] Re : Upper GI endoscopy procedure for Daisha Castrejon Dear Dr. Mitchell This procedure was performed on October. My impressions and recommendations are as follows: Impressions : - LA Grade A reflux esophagitis. - Small hiatal hernia - Non-bleeding gastric ulcer with no stigmata of bleeding. Biopsied. - Non-bleeding gastric ulcer with no stigmata of bleeding. Biopsied. - Normal second portion of the duodenum. Biopsied. Recommendations : - Discharge patient to home. - Resume previous diet. - Continue present medications. - Await pathology results. My findings are described in the full procedure note, which is enclosed. If I can be of further assistance, please feel free to contact me at . Sincerely, Elliot Orta, 10/30/2021 11:15:09 AM This report has been signed electronically.
--- NOTE | 2021-10-30 11:21 | OP.CCLET_ITS ---
02/03/2022 Darek Mitchell [address] [place] [address] Re : Colonoscopy procedure for Daisha Castrejon Dear Dr. Mitchell This procedure was performed on October. My impressions and recommendations are as follows: Impressions : - The entire examined colon is normal. Biopsied. - Congested mucosa in the distal ileum. Biopsied. Recommendations : - Discharge patient to home. - Resume previous diet. - Continue present medications. - Await pathology results. - Repeat colonoscopy at appointment to be scheduled for surveillance. My findings are described in the full procedure note, which is enclosed. If I can be of further assistance, please feel free to contact me at . Sincerely, Elliot Orta, 10/30/2021 11:20:29 AM This report has been signed electronically.
--- NOTE | 2021-10-30 11:21 | OP.COLON_ITS ---
Patient Name: Daisha Castrejon Procedure Date: 10/30/2021 10:50 AM Date of : 1995 Age: 26 Procedure: Colonoscopy Indications: Crohn's disease of the small bowel Providers: Elliot Orta DO Referring MD: Darek Mitchell Md Medicines: Monitored Anesthesia Care Patient Profile: This is a 26 year old female. Refer to note in patient chart for documentation of history and physical. Patient has symptoms of acute epigastric abdominal pain. Last Colonoscopy: more than 10 years ago. Complications: No immediate complications. Procedure: Pre-Anesthesia Assessment: - Prior to the procedure, a History and Physical was performed, and patient medications and allergies were reviewed. The patient is competent. The risks and benefits of the procedure and the sedation options and risks were discussed with the patient. All questions were answered and informed consent was obtained. Patient identification and proposed procedure were verified by the physician in the pre-procedure area. Mental Status Examination: alert and oriented. Airway Examination: normal oropharyngeal airway and neck mobility. Respiratory Examination: clear to auscultation. CV Examination: normal. Prophylactic Antibiotics: The patient does not require prophylactic antibiotics. Prior Anticoagulants: The patient has taken no previous anticoagulant or antiplatelet agents. ASA Grade Assessment: II - A patient with mild systemic disease. After reviewing the risks and benefits, the patient was deemed in satisfactory condition to undergo the procedure. The anesthesia plan was to use moderate sedation / analgesia (conscious sedation). Immediately prior to administration of medications, the patient was re-assessed for adequacy to receive sedatives. The heart rate, respiratory rate, oxygen saturations, blood pressure, adequacy of pulmonary ventilation, and response to care were monitored throughout the procedure. The physical status of the patient was re-assessed after the procedure. After I obtained informed consent, the scope was passed under direct vision. Throughout the procedure, the patient's blood pressure, pulse, and oxygen saturations were monitored continuously. The colonoscope was introduced through the anus and advanced to the terminal ileum. The colonoscopy was performed without difficulty. The patient tolerated the procedure well. The quality of the bowel preparation was good. Scope In: 10:52:48 AM Scope Withdrawal Time 0 hours 9 minutes 5 seconds Scope Out: 11:04:32 AM Total Procedure Duration Time 0 hours 11 minutes 44 seconds Findings: The perianal and digital rectal examinations were normal. The colon (entire examined portion) appeared normal. Biopsies were taken with a cold forceps for histology. Verification of patient identification for the specimen was done. Estimated blood loss was minimal. A scattered area of the distal ileum was congested. Biopsies were taken with a cold forceps for histology. Verification of patient identification for the specimen was done. Estimated blood loss was minimal. Impression: - The entire examined colon is normal. Biopsied. - Congested mucosa in the distal ileum. Biopsied. Recommendation: - Discharge patient to home. - Resume previous diet. - Continue present medications. - Await pathology results. - Repeat colonoscopy at appointment to be scheduled for surveillance. Procedure Code(s): --- Professional --- 37233, Colonoscopy, flexible; with biopsy, single or multiple CPT copyright 2017 [employer]. All rights reserved. The codes documented in this report are preliminary and upon counter dish carrier review may be revised to meet current compliance requirements. Elliot Orta DO 10/30/2021 11:20:29 AM This report has been signed electronically. Number of Addenda: 1 Note Initiated On: 10/30/2021 10:50 AM Addendum Number: 1 Addendum Date: 02/03/2022 5:59:13 AM MAC was used as sedation for this procedure. Elliot Orta DO 02/03/2022 5:59:17 AM This report has been signed electronically.
== END 2021-10-30 11:46 | disposition home or self-care (01) ==
LOC: EN 09:27 → AC 09:27
PROVIDERS: PCP Family Medicine; Referring Provider Family Medicine; Visit Provider Internal Medicine Gastroenterology
PROC: 0DJD8ZZ Inspection of Lower Intestinal Tract, Via Natural or Artificial Opening Endoscopic (ICD-10-PCS; CPT 45378; principal; 2021-10-30 10:25)
DX: K25.9 Gastric ulcer, unspecified as acute or chronic, without hemorrhage or perforation (principal); K50.90 Crohn's disease, unspecified, without complications; K63.89 Other specified diseases of intestine; K44.9 Diaphragmatic hernia without obstruction or gangrene; K21.00 Gastro-esophageal reflux disease with esophagitis, without bleeding; K29.50 Unspecified chronic gastritis without bleeding
CPT/HCPCS: 45380; 43239; 88305; 88313; 88342; J7120; J2405

== ENCOUNTER → 2022-02-16 | Outpatient (CLI) | payer OTHER, MEDICAID, SELFPAY ==
[2022-02-16 17:11] LABS: Erythrocyte Sedimentation Rate 7 mm/hr (0-30)
[2022-02-16 17:17] LABS: CRP 5.67 mg/L (0.0-3.0)
== END | disposition home or self-care (01) ==
PROVIDERS: PCP Family Medicine; Visit Provider Internal Medicine Gastroenterology
DX: K50.90 Crohn's disease, unspecified, without complications (principal)
CPT/HCPCS: 36415; 85652; 86140

== ENCOUNTER → 2022-02-20 | Outpatient (CLI) | payer OTHER, MEDICAID, SELFPAY ==
[2022-02-20 17:47] LABS: Absolute Lymphocyte Count 3.04 X10^3/uL (0.83-4.51); Absolute Neutrophil Count 3.5 X10^3/uL (2.0-7.7); Basophil% 1.3 % (0-1); Eosinophil# 0.68 X10^3/uL; Eosinophils% 8.8 % (0-5); Hematocrit 37.6 % (37-47); Hemoglobin 12.4 g/dL (12.0-15.0); Lymphocyte # 3.04 X10^3/ul (0.83-4.51); Lymphocyte % 39.2 % (19-41); Mean Corpuscular Hgb 25.9 pg (27.0-32.0); Mean Corpuscular Volume 78.7 fL (81-99); Mean Platelet Vol. 11.3 fl (6.2-12.0); Monocyte# 0.47 X10^3/uL; Monocyte% 6.1 % (0-10); NRBC Flagged by Analyzer 0 % (0-5); Neutrophil # 3.46 X10^3/uL (2.7-7.7); Neutrophil % 44.5 % (47-70); Platelet Count 404 K/mm3 (150-450); RBC Distribution Width CV 13.9 % (11.6-14.6); RBC Distribution Width SD 39.6 fl (35.1-43.9); Red Blood Count 4.78 M/mm3 (4.2-5.4); White Blood Count 7.8 K/mm3 (4.4-11.0)
[2022-02-20 18:49] LABS: Ferritin 12 ng/mL (8-252); Iron 34 ug/dL (50-170); Iron Binding Capacity,Total 349 ug/dL (250-450)
== END | disposition home or self-care (01) ==
LOC: MTLAB 15:12
PROVIDERS: PCP Family Medicine; Referring Provider Family Medicine; Visit Provider Family Medicine
DX: E61.1 Iron deficiency (principal)
CPT/HCPCS: 36415; 82728; 83540; 83550; 85025

== ENCOUNTER 2022-04-01 08:30 | Outpatient (RCR) | payer OTHER, MEDICAID, SELFPAY | END 2022-04-01 23:59 | LOC: NS 08:30 | PROVIDERS: PCP Family Medicine; Visit Provider Family Medicine | DX: Z71.3 Dietary counseling and surveillance (principal); E66.9 Obesity, unspecified; Z68.30 Body mass index [BMI] 30.0-30.9, adult | CPT/HCPCS: 97802; 97803 ==

== ENCOUNTER 2022-05-06 09:26 | Outpatient (RCR) | payer OTHER, MEDICAID, SELFPAY | END 2022-06-02 23:59 | LOC: NS 09:26 | PROVIDERS: PCP Family Medicine; Visit Provider Family Medicine | DX: Z71.3 Dietary counseling and surveillance (principal); E66.9 Obesity, unspecified; Z68.32 Body mass index [BMI] 32.0-32.9, adult | CPT/HCPCS: 97803 ==

== ENCOUNTER 2022-06-08 14:10 | Outpatient (RCR) | payer OTHER, MEDICAID, SELFPAY | END 2022-06-30 23:59 | LOC: NS 14:10 | PROVIDERS: PCP Family Medicine; Visit Provider Family Medicine | DX: Z71.3 Dietary counseling and surveillance (principal); E66.9 Obesity, unspecified; Z68.32 Body mass index [BMI] 32.0-32.9, adult | CPT/HCPCS: 97803 ==

== ENCOUNTER 2022-06-25 09:34 | Emergency (ER) | payer OTHER, MEDICAID, SELFPAY ==
[2022-06-25 09:35] VITALS: BP 118/78; PULSE 102; RESP 16; TEMP 36.7; O2SAT 98; BMI 33.6
[2022-06-25] MEDS: Dicyclomine 10 MG Capsule 20 MG PO (10:03)
[2022-06-25 10:16] LABS: Absolute Lymphocyte Count 1.39 X10^3/uL (0.83-4.51); Absolute Neutrophil Count 4.4 X10^3/uL (2.0-7.7); Basophil# 0.02 X10^3/uL; Basophil% 0.3 % (0-1); Eosinophil# 0.39 X10^3/uL; Eosinophils% 5.9 % (0-5); Hematocrit 38.7 % (37-47); Hemoglobin 12.5 g/dL (12.0-15.0); Lymphocyte # 1.39 X10^3/ul (0.83-4.51); Lymphocyte % 21.1 % (19-41); Mean Corp Hgb Conc 32.3 g/dL (32-36); Mean Corpuscular Hgb 25.5 pg (27.0-32.0); Mean Platelet Vol. 10.6 fl (6.2-12.0); Monocyte# 0.43 X10^3/uL; Monocyte% 6.5 % (0-10); NRBC Flagged by Analyzer 0 % (0-5); Neutrophil # 4.35 X10^3/uL (2.7-7.7); Neutrophil % 65.9 % (47-70); Platelet Count 305 K/mm3 (150-450); RBC Distribution Width CV 14.5 % (11.6-14.6); RBC Distribution Width SD 41.8 fl (35.1-43.9); White Blood Count 6.6 K/mm3 (4.4-11.0)
--- NOTE | 2022-06-25 10:18 | ED.VIS.GI ---
HPI HPI - GI History of Present Illness Chief Complaint: Abd Pain Detail of Chief Complaint: Bilateral upper quadrant colicky intermittent pain x3.5 days Informant: patient Abdominal Pain/Flank Pain Onset: Weeks (Onset of pain 2.5 weeks ago. Persistent past 3.5 days.) Context: Sudden Onset Timing: Intermittent Quality: Aching and Cramping Location: RUQ and LUQ Current Severity: Mild Maximum Severity: Moderate Worsened by: Nothing Relieved by: Nothing Nausea/Vomiting/Emesis GI Symptom: Positive for Nausea; Negative for Vomiting Diarrhea/Melena/Hematochezia GI Symptom: Positive for Diarrhea (10 yesterday. Normal to have 4-6 bowel movements per day.) Onset: Days and Weeks Stool Quality: Positive for Loose, Watery and Mucous; Negative for Black, Maroon or BRB per rectum Associated Symptoms Associated Symptoms: Negative for Dysuria, Frequency, Hematuria or Urgency Narrative Narrative: Patient is a 26-year-old woman with history of Crohn's disease. Patient is followed by Dr. Orta. Patient states that she presented because of persistent pain for 3.5 days, which is abnormal for her. He stated if the pain would have resolved she would not have come to the emergency department. She denies fever, chills night sweats. She does endorse nausea and diarrhea. She denies vomiting. She denies history of biliary disease, intolerance to greasy or fried foods. She denies history of pancreatitis. She denies alcohol intake. She denies any significant change in her bowels. She is compliant with her meds. Patient denies headache, visual, ocular auditory symptoms. Patient denies cardiac or respiratory symptoms. She specifically denied cough, shortness of breath, difficulty breathing, pleuritic pain. She denies family history of cholelithiasis. She is status post laparoscopic surgery for oophorectomy due to enlarged ovary. She is uncertain which ovary was removed. Prior similar symptoms: Yes Recent Illness/Hospitalization: No PFSH PFSH Medical History Abdominal pain Alcohol use Anxiety delivery delivered Crohn disease Diarrhea Heart murmur History of echocardiogram Insomnia Iron deficiency Marijuana use Non-smoker PONV (postoperative nausea and vomiting) depression Wears glasses Home Medications buspirone 7.5 mg tablet 10 mg PO BID 07/24/21 [History Last Taken Unknown] sertraline 50 mg tablet 100 mg PO DAILY 07/24/21 [History Last Taken Unknown] colestipol 1 gram tablet 1 g PO BID PRN Diarrhea 10/24/21 [History Last Taken Unknown] ustekinumab 90 mg/mL subcutaneous syringe (Stelara) 90 mg subcut Q4W #1 mL 04/22/22 [Rx Last Taken Unknown] Allergy/AdvReac Type Severity Reaction Status Date / Time No Known Allergies Allergy Verified 10/30/21 09:40 Family History Mother Diabetes Thyroid disorder Surgical History deliv due to previous difficult deliv, deliv, curr hospitaliz History of tonsillectomy Left ovarian cyst Status post bilateral salpingectomy [place] teeth extracted Social History household members: family number of children: 3 current occupational status: employed current occupation: [employer] Smoking Status: Never smoker alcohol intake: never substance use type: does not use caffeine: Yes Type: tea Number of servings: 1 seatbelt use: always do you feel safe at home: Yes additional social history: Alvin Daisha [facility] Constitutional Constitutional ED: Denies chills, fever(s), subjective, sweats or weight loss ENT ENT ED: Denies ear pain, rhinorrhea or sore throat Cardiovascular Cardiovascular: Denies chest pain, orthopnea, palpitations, paroxysmal nocturnal dyspnea or racing heartbeat Respiratory/Chest Respiratory/Chest: Denies cough, dyspnea, dyspnea on exertion, orthopnea or paroxysmal nocturnal dyspnea Gastrointestinal Gastrointestinal: Reports abdominal pain, diarrhea and nausea; Denies constipation, melena or vomiting Genitourinary Genitourinary ED: Denies dysuria, hematuria or urinary frequency Musculoskeletal Musculoskeletal: Denies arthralgias, back pain, myalgias or neck pain Integumentary Denies abscess, Abrasions or rash Neurologic Neurologic: Denies headache(s), paresthesias or weakness Psychiatric Psychiatric: Reports anxiety and depression Endocrine Endocrinology: Denies polydipsia, polyphagia or polyuria Hematologic/Lymphatic Hematologic/Lymphatic: Denies easy bleeding or easy bruising EXAM Physical Exam Const Vital Signs: 06/25/22 09:35 Temperature 98.1 F Temperature Source Temporal Pulse Rate 102 H Respiratory Rate 16 Blood Pressure 118/78 Blood Pressure Mean 91 Pulse Ox 98 Oxygen Delivery Method Room Air Positive well nourished, well developed and obese General Appearance ED: well developed, NAD and pallor Nutritional Appearance: obese HEENT Reports TM's clear and moist mucous membranes HEENT Narrative: Nares are patent. Posterior pharynx is normal. normocephalic and atraumatic Tympanic Membrane ED: Yes TM's clear Eyes PERRL and EOMs intact bilaterally General Eye ED: Negative for pale conjunctiva or scleral icterus Neck no lymphadenopathy, supple and no JVD Resp normal respiratory effort and clear to auscultation bilaterally Cardio regular rate, regular rhythm, S1 normal heart sound, S2 normal heart sound and no murmurs GI non-distended and no masses; Negative for non-tender Auscultation: hypoactive bowel sounds Palpation: soft and tender LUQ, RUQ, McBurney's point, periumbilical, suprapubic, Wells's sign and Rovsing's sign; Negative for pulsatile mass or rebound tenderness present Back/Spine no CVA tenderness Extremity full ROM General Extremety ED: Negative for edema or tenderness General Extremity: Negative for edema Neuro CN's II-XII intact bilaterally and moves all extremities Sensorium / Orientation: alert Psych Psych Narrative: Affect is flat. Mood & Affect: depressed Skin no wounds General Skin Exam: pallor; Negative for jaundice Rashes: no rashes Trauma: abrasion MDM MDM MDM Narrative Medical decision making narrative: Patient presents with intermittent abdominal pain and his history of Crohn's. Suspect this is due to mild Crohn's exacerbation. Will obtain CBC to assess white count and differential. Competence metabolic panel was obtained to assess electrolytes and specifically evaluate for hypokalemia. Also to evaluate transaminases in the event this may represent biliary disease. Lipase to evaluate for pancreatitis. Since patient describes this as an achy crampy pain she was treated with Bentyl. Office note from Miriam Erickson was reviewed. Nurse practitioner Georgina concluded the patient's symptoms improved after the Stelara was increased from every 8 weeks to every 4 weeks. Also of note there is family history of Crohn's disease, ulcerative colitis and rheumatoid arthritis. Lab Data Attestation: I reviewed the patient's lab results. Lab results narrative: CBC and differential unremarkable. Comprehensive metabolic panel is remarkable for slight elevation of chloride and a low AST of 109 and 11 respectively. I was informed by nurse by note that she is complaining of nausea. Zofran was ordered. Will reevaluate., 1 1: 1 5 Labs: Laboratory Results - last 24 hr 06/25/22 06/25/22 09:58 09:58 WBC 6.6 RBC 4.90 Hgb 12.5 Hct 38.7 MCV 79.0 L MCH 25.5 L MCHC 32.3 RDW Std Deviation 41.8 RDW Coeff of Tamiko 14.5 Plt Count 305 MPV 10.6 Immature Gran % (Auto) 0.300 Neut % (Auto) 65.9 Lymph % (Auto) 21.1 Hickman % (Auto) 6.5 Eos % (Auto) 5.9 H Baso % (Auto) 0.3 Absolute Neuts (auto) 4.4 Absolute Lymphs (auto) 1.39 Nucleated RBC % 0 Sodium 141 Potassium 3.2 L Chloride 109 H Carbon Dioxide 25.0 Anion Gap 7 BUN 7 Creatinine 0.67 Estim Creat Clear Calc 106.18 Est GFR (MDRD) Af Amer 138 Est GFR (MDRD) Non-Af 114 BUN/Creatinine Ratio 10.5 Glucose 89 Calcium 8.5 Total Bilirubin 0.30 AST 11 L ALT 17 Alkaline Phosphatase 64 Total Protein 7.4 Albumin 3.7 Globulin 3.7 Albumin/Globulin Ratio 1.0 Lipase 152 Treatment and Re-Evaluation Narrative: Patient was informed at 1140 that her laboratory results revealed mild hypokalemia. She states her pain has improved. Friend her solutions executive security was sharif. Patient's case was discussed with nurse practitioner braulio. Patient is to call the office. Office that was made aware that she will be calling and they will have her follow-up as a urgent ER visit. Discharge Plan Triage Chief Complaint: Abd Pain Other Complaint: Nausea/Vomiting ED Provider: Vu Motley Dx/Rx/DC Orders Clinical Impression: Abdominal pain, bilateral upper quadrant, Diarrhea, Hx of Crohn's disease, Acute hypokalemia Instructions: ED Crohn's Disease, ED Potassium-Rich Foods Prescriptions: No Action sertraline 50 mg tablet 100 mg PO DAILY buspirone 7.5 mg tablet 10 mg PO BID colestipol 1 gram tablet 1 g PO BID PRN (Reason: Diarrhea) Stelara 90 mg/mL syringe 90 mg subcut Q4W Qty: 1 11RF Rx Instructions: inject one every four weeks r/t low serum concentrations Primary Care Provider: Darek Mitchell Referrals: Darek Mitchell MD [Primary Care Provider] - Elliot Orta DO [Med Staff - Active Staff] - 3-5 Days Activity Restrictions/Additional Instructions: Call Dr. Orta's office this afternoon for close follow-up. Disposition Disposition: Home, Self Care
[2022-06-25 10:31] LABS: AST(SGOT) 11 U/L (15-37); Alanine Aminotransfer ALT/SGPT 17 U/L (13-56); Albumin, Serum 3.7 g/dL (3.2-5.0); Alkaline Phosphatase 64 U/L (45-117); Anion Gap 7 (5-15); BUN 7 mg/dL (7-18); BUN/Creat Ratio 10.5 RATIO (10-20); Calcium,Total 8.5 mg/dL (8.5-10.1); Chloride 109 mmol/L (98-107); Creatinine, Serum 0.67 mg/dL (0.55-1.02); EST Glomerular Filtration Rate 114 mL/min (>60); Est Glom Filt Rate - Afr Amer 138 mL/min (>60); Estimated Creatinine Clearance 106.18 ml/min; Globulin 3.7 g/dL (2.2-4.2); Glucose 89 mg/dL (74-106); Lipase 152 U/L (73-393); Potassium 3.2 mmol/L (3.5-5.1); Protein, Total 7.4 g/dL (6.4-8.2); Sodium Level 141 mmol/L (136-145)
[2022-06-25] MEDS: Ondansetron 4 MG/2 ML Vial IV (11:24)
[2022-06-25 12:08] VITALS: BP 128/69; PULSE 79; RESP 15; O2SAT 98
== END 2022-06-25 12:09 | disposition home or self-care (01) ==
PROVIDERS: Emergency Provider Emergency Medicine; PCP Family Medicine; Visit Provider Emergency Medicine
DX: R10.12 Left upper quadrant pain (principal); F32.A Depression, unspecified; R11.0 Nausea; R10.11 Right upper quadrant pain; E87.6 Hypokalemia
CPT/HCPCS: 80053; 83690; 85025; 96374; 99283; A4216; J2405

== ENCOUNTER → 2022-11-27 | Outpatient (CLI) | payer OTHER, MEDICAID, SELFPAY ==
[2022-11-27 11:23] LABS: Absolute Lymphocyte Count 2.78 X10^3/uL (0.83-4.51); Absolute Neutrophil Count 3.8 X10^3/uL (2.0-7.7); Basophil# 0.08 X10^3/uL; Basophil% 1.1 % (0-1); Eosinophil# 0.42 X10^3/uL; Eosinophils% 5.6 % (0-5); Hematocrit 36.5 % (37-47); Hemoglobin 12.4 g/dL (12.0-15.0); Lymphocyte # 2.78 X10^3/ul (0.83-4.51); Lymphocyte % 37.2 % (19-41); Mean Corpuscular Hgb 26.7 pg (27.0-32.0); Mean Corpuscular Volume 78.5 fL (81-99); Mean Platelet Vol. 10.6 fl (6.2-12.0); Monocyte# 0.36 X10^3/uL; Monocyte% 4.8 % (0-10); NRBC Flagged by Analyzer 0 % (0-5); Neutrophil # 3.81 X10^3/uL (2.7-7.7); Platelet Count 391 K/mm3 (150-450); RBC Distribution Width SD 39.6 fl (35.1-43.9); RET-HE 27.5 pg (30-35); Red Blood Count 4.65 M/mm3 (4.2-5.4); Reticulocyte Count 1.49 % (0.5-1.5); White Blood Count 7.5 K/mm3 (4.4-11.0)
[2022-11-27 11:29] LABS: Erythrocyte Sedimentation Rate 14 mm/hr (0-30)
[2022-11-27 13:17] LABS: AST(SGOT) 17 U/L (15-37); Alanine Aminotransfer ALT/SGPT 32 U/L (13-56); Albumin, Serum 3.7 g/dL (3.2-5.0); Alkaline Phosphatase 75 U/L (45-117); Amylase 44 U/L (25-115); Anion Gap 6 (5-15); BUN 10 mg/dL (7-18); BUN/Creat Ratio 13.6 RATIO (10-20); CRP 8.31 mg/L (0.0-3.0); Calcium,Total 8.6 mg/dL (8.5-10.1); Chloride 108 mmol/L (98-107); Creatinine, Serum 0.74 mg/dL (0.55-1.02); EST Glomerular Filtration Rate 101 mL/min (>60); Est Glom Filt Rate - Afr Amer 122 mL/min (>60); Ferritin 11 ng/mL (8-252); Globulin 3.8 g/dL (2.2-4.2); Glucose 87 mg/dL (74-106); Iron 52 ug/dL (50-170); Iron Binding Capacity,Total 378 ug/dL (250-450); LDH 194 U/L (84-246); Lipase 43 U/L (13-75); Potassium 3.7 mmol/L (3.5-5.1); Protein, Total 7.5 g/dL (6.4-8.2); Sodium Level 139 mmol/L (136-145)
[2022-11-30 15:07] LABS: Albumin 3.9 g/dL (2.9-4.4); Alpha-1-Globulins 0.2 g/dL (0.0-0.4); Alpha-2-Globulins 0.7 g/dL (0.4-1.0); Cytoplasmic Ab (C-ANCA) <1:20 titer (Neg:<1:20); Gamma Globulin 1.1 g/dL (0.4-1.8); Haptoglobin 160 mg/dL (33-278); Immunoglobulin A 214 mg/dL (87-352); Immunoglobulin G 1023 mg/dL (586-1602); Immunoglobulin M 219 mg/dL (26-217); Perinuclear Ab (P-ANCA) <1:20 titer (Neg:<1:20)
[2022-12-01 10:08] LABS: Beef <0.10 kU/L (Class 0); Chocolate <0.10 kU/L (Class 0); Clam <0.10 kU/L (Class 0); Codfish <0.10 kU/L (Class 0); Egg, White 0.14 kU/L (Class 0/I); Egg, Whole 0.13 kU/L (Class 0/I); Milk (Cow) 0.27 kU/L (Class 0/I); Peanut 0.15 kU/L (Class 0/I); Pork <0.10 kU/L (Class 0); SCALLOP 0.12 kU/L (Class 0/I); SESAME SEED 0.15 kU/L (Class 0/I); Shrimp <0.10 kU/L (Class 0); Wheat 0.39 kU/L (Class I)
== END | disposition home or self-care (01) ==
PROVIDERS: PCP Family Medicine; Referring Provider Internal Medicine Gastroenterology; Visit Provider Internal Medicine Gastroenterology
DX: R10.9 Unspecified abdominal pain (principal); K50.90 Crohn's disease, unspecified, without complications; R19.7 Diarrhea, unspecified
CPT/HCPCS: 36415; 80053; 82150; 82728; 82784; 83010; 83540; 83550; 83615; 83690; 84165; 85025; 85045; 85652; 86003; 86005; 86140; 86256; 86334

== ENCOUNTER → 2023-03-26 | Outpatient (CLI) | payer OTHER, MEDICAID, SELFPAY | END | disposition home or self-care (01) | LOC: SL 10:04 | PROVIDERS: PCP Family Medicine; Referring Provider Nurse Practitioner Acute Care; Visit Provider Nurse Practitioner Acute Care | DX: R06.83 Snoring (principal); G47.10 Hypersomnia, unspecified; G47.00 Insomnia, unspecified; R51.9 Headache, unspecified; E66.9 Obesity, unspecified; F41.9 Anxiety disorder, unspecified | CPT/HCPCS: 95806 ==

== ENCOUNTER → 2023-03-26 | Outpatient (CLI) | payer OTHER, MEDICAID, SELFPAY ==
--- NOTE | 2023-03-26 08:26 | US_ITS ---
HISTORY: bleeding. TECHNIQUE: Transabdominal and transvaginal pelvic ultrasound was performed with kong scale and color Doppler evaluation. 92 images. COMPARISON: CT 08/15/2021. FINDINGS: UTERUS: 7.4 x 3.3 x 5.3 cm. ENDOMETRIAL THICKNESS: 7 mm. Intrauterine device in place. RIGHT OVARY: 2.4 x 2.5 x 3.7 for a volume of 7 cc. 1.4 cm dominant follicle present. No adnexal masses LEFT OVARY: 2.3 x 2.5 x 3.4 cm for a volume of 10 cc. Small follicles present. No adnexal masses FREE FLUID: None. URINARY BLADDER: Partially distended at 26 cc. US/Pelvic (Non ) IMPRESSION: Intrauterine device in place. Otherwise unremarkable examination of the uterus and ovaries. Electronically Signed: Jo Cuellar MD at 13:26 EST ,
== END | disposition home or self-care (01) ==
LOC: OPUS 08:25
PROVIDERS: PCP Family Medicine; Referring Provider Obstetrics & Gynecology; Visit Provider Obstetrics & Gynecology
DX: N93.0 Postcoital and contact bleeding (principal)
CPT/HCPCS: 76830; 76856

== ENCOUNTER → 2023-04-20 | Outpatient (CLI) | payer OTHER, MEDICAID, SELFPAY | END | disposition home or self-care (01) | LOC: SL 20:02 | PROVIDERS: PCP Family Medicine; Referring Provider Nurse Practitioner Acute Care; Visit Provider Nurse Practitioner Acute Care | DX: G47.10 Hypersomnia, unspecified (principal) | CPT/HCPCS: 95810 ==

== ENCOUNTER → 2023-04-30 | Outpatient (CLI) | payer OTHER, MEDICAID, SELFPAY ==
--- OUTSIDE RECORDS SUMMARY | 2023-04-30 10:19 | XMS RPT_ITS | CCD ---
Author Name Unknown Address [address] [place] [address] Organization [facility] Care Team Providers Care Life Enrichment Specialist Name Role Phone YESENIA MCKEON Unavailable Unavailable DARREN BARBA (LILLIANA) Unavailable Unavailable Results Test Name Value Interpretation Reference Range Facil ity Encounters Encounter Date Encounter Type Care Provider Facility Start: 01-12-2017 End: 01-14-2017 Ambulatory DARREN (LILLIANA) FREDA [facility] Start: 11-02-2016 End: 11-05-2016 Ambulatory YESENIA MCKEON [facility] Summary Purpose Family History No Family History Records Found Advance Directives No Advanced Directives Records Found Additional Source Comments INFORMATION SOURCE (unrecogn ized section and content) FOR RECORDS PERTAINING TO PATIENTS WHO ARE OR HAVE BEEN ENROLLED IN A CHEMICAL DEPENDENCY/SUBSTANCEABUSE PROGRAM, SOME INFORMATION MAY BE OMITTED. This clinical summary was aggregated from multiple sources. Caution should be exercised in using it in the provision of clinical care. This summary normalizes information from multiple sources, and as a consequence, information in this document may materially change the coding, format and clinical context of patient data. In addition, data may be omitted in some cases. CLINICAL DECISIONS SHOULD BE BASED ON THE PRIMARY CLINICAL RECORDS. [employer]. provides no warranty or guarantee of the accuracy or completeness of information in this document.
== END | disposition home or self-care (01) ==
LOC: SL 09:44
PROVIDERS: PCP Family Medicine; Visit Provider Nurse Practitioner Acute Care
DX: Z46.89 Encounter for fitting and adjustment of other specified devices (principal)

== ENCOUNTER → 2023-11-15 | Outpatient (CLI) | payer OTHER, SELFPAY ==
[2023-11-15 11:38] LABS: Absolute Lymphocyte Count 2.45 X10^3/uL (0.83-4.51); Absolute Neutrophil Count 3.5 X10^3/uL (2.0-7.7); Basophil# 0.09 X10^3/uL; Basophil% 1.3 % (0-1); Eosinophil# 0.53 X10^3/uL; Eosinophils% 7.6 % (0-5); Hematocrit 39.9 % (37-47); Hemoglobin 13.6 g/dL (12.0-15.0); Lymphocyte # 2.45 X10^3/ul (0.83-4.51); Lymphocyte % 35.1 % (19-41); Mean Corp Hgb Conc 34.1 g/dL (32-36); Mean Corpuscular Hgb 27.3 pg (27.0-32.0); Mean Platelet Vol. 10.6 fl (6.2-12.0); Monocyte# 0.39 X10^3/uL; Monocyte% 5.6 % (0-10); NRBC Flagged by Analyzer 0 % (0-5); Neutrophil # 3.52 X10^3/uL (2.7-7.7); Neutrophil % 50.3 % (47-70); Platelet Count 324 K/mm3 (150-450); RBC Distribution Width CV 14.4 % (11.6-14.6); RBC Distribution Width SD 41.8 fl (35.1-43.9); Red Blood Count 4.99 M/mm3 (4.2-5.4)
[2023-11-15 11:57] LABS: Vitamin D,25 Hydroxy 39.5 ng/mL
[2023-11-15 12:05] LABS: ALB/GLOB Ratio 1.1 RATIO (0.9-2.4); AST(SGOT) 10 U/L (15-37); Alanine Aminotransfer ALT/SGPT 21 U/L (13-56); Albumin, Serum 3.9 g/dL (3.2-5.0); Alkaline Phosphatase 60 U/L (45-117); Anion Gap 8 (5-15); BUN 10 mg/dL (7-18); BUN/Creat Ratio 13.5 RATIO (10-20); Calcium,Total 9.2 mg/dL (8.5-10.1); Chloride 107 mmol/L (98-107); Creatinine, Serum 0.74 mg/dL (0.55-1.02); EST Glomerular Filtration Rate 100 mL/min (>60); Est Glom Filt Rate - Afr Amer 121 mL/min (>60); Globulin 3.4 g/dL (2.2-4.2); Glucose 92 mg/dL (74-106); Potassium 4.2 mmol/L (3.5-5.1); Protein, Total 7.3 g/dL (6.4-8.2); Sodium Level 141 mmol/L (136-145); Thyroid Stim Hormone (TSH) 1.54 uIU/mL (0.358-3.74)
== END | disposition home or self-care (01) ==
PROVIDERS: PCP Family Medicine; Referring Provider Nurse Practitioner Family; Visit Provider Nurse Practitioner Family
DX: E66.3 Overweight (principal)
CPT/HCPCS: 36415; 80053; 82306; 84443; 85025

== ENCOUNTER → 2024-01-17 | Outpatient (CLI) | payer OTHER, SELFPAY ==
--- NOTE | 2024-01-17 17:46 | US_ITS ---
EXAM: US PELVIS TRANSABDOMINAL AND TRANSVAGINAL, COMPLETE CLINICAL INDICATION: MENORRHAGIA TECHNIQUE: Transabdominal and transvaginal pelvic ultrasound was performed with grayscale and color Doppler imaging. Transvaginal imaging was used for better evaluation of the endometrium and adnexa. COMPARISON: 03/26/2023. FINDINGS: UTERUS/CERVIX: Small nabothian cysts in the cervix. Anteverted. There is no uterine mass. The uterus measures 8.2 x 4.5 x 3.8 cm. The endometrial stripe measures 0.8 cm in thickness. RIGHT OVARY: Unremarkable. Blood flow is present in the right ovary. The right ovary measures 2.9 x 2.3 x 2.1 cm. LEFT OVARY: Unremarkable. Blood flow is present in the left ovary. The left ovary measures 3.5 x 2.0 x 1.3 cm. FREE FLUID: None. BLADDER: Unremarkable as visualized. Wall is normal thickness for degree of distention. US/Pelvic w/ Transvaginal IMPRESSION: No acute findings in the pelvis. Electronically Signed: Black Morales MD at 5:32 EDT ,
== END | disposition home or self-care (01) ==
LOC: US 17:44
PROVIDERS: PCP Family Medicine; Referring Provider Obstetrics & Gynecology; Visit Provider Obstetrics & Gynecology
DX: N92.0 Excessive and frequent menstruation with regular cycle (principal)
CPT/HCPCS: 76830; 76856

== ENCOUNTER → 2024-01-19 | Outpatient (CLI) | payer OTHER, SELFPAY ==
--- NOTE | 2024-01-19 | EMB_PTH ---
PATIENT: ED MACE LOC: [facility] U#:[id number] AGE/SX: 28/F ROOM: RE01/19/[address]: CARON Miranda : 1995 BED: DIS: 01/19/2024 SPEC #: [id number] RECD: 01/19/24 16:21 STATUS: ANYI REEva #: [id number] HARRY: 01/19/24 00:[address]: Nilam Mosley NP DEPT: SURGICAL PATHOLOGY RECD BY: Cy Dover ENTERED: 01/20/24 10:20 SP TYPE: ENDOM BX/C FELISA DR: Dr. Darek Mitchell MD Tissues: Endometrium, NOS Procedures: Surgery Specimen Level IV HEADER OPERATION: Endometrial biopsy PRE-OP DIAGNOSIS: Abnormal uterine bleeding TISSUE SUBMITTED: Endometrial tissue MICROSCOPIC DIAGNOSIS Endometrial biopsy: Proliferative endometrium. 01/21/2024 MICROSCOPIC DESCRIPTION Slides are reviewed. GROSS DESCRIPTION Received is one container labeled with the patient's name and not further designated. The specimen consists of multiple irregular fragments of plummer-pink soft tissue that in aggregate measure 3.0 x 2.5 x 0.3 cm. The specimen is totally submitted in one cassette. 01/20/2024 TC:4 CPT:67293
== END | disposition home or self-care (01) ==
PROVIDERS: PCP Family Medicine; Referring Provider Nurse Practitioner Women's Health; Visit Provider Nurse Practitioner Women's Health
DX: N93.9 Abnormal uterine and vaginal bleeding, unspecified (principal)
CPT/HCPCS: 88305

== ENCOUNTER → 2024-01-31 | Outpatient (CLI) | payer OTHER, SELFPAY ==
[2024-02-07 09:15] LABS: HPV Reflexed? NOT INDICATED
== END | disposition home or self-care (01) ==
LOC: LABSPEC 11:57
PROVIDERS: PCP Family Medicine; Referring Provider Obstetrics & Gynecology; Visit Provider Obstetrics & Gynecology
DX: Z12.4 Encounter for screening for malignant neoplasm of cervix (principal)
CPT/HCPCS: 88175; G0145

== ENCOUNTER 2024-02-29 06:28 | Day surgery (SDC) | payer OTHER, SELFPAY ==
[2024-02-21 15:12] LABS: Hematocrit 38.3 % (37-47); Hemoglobin 13.1 g/dL (12.0-15.0); Mean Corp Hgb Conc 34.2 g/dL (32-36); Mean Corpuscular Hgb 27.3 pg (27.0-32.0); Mean Corpuscular Volume 79.8 fL (81-99); Mean Platelet Vol. 10.5 fl (6.2-12.0); Platelet Count 373 K/mm3 (150-450); RBC Distribution Width SD 36.9 fl (35.1-43.9); White Blood Count 8.8 K/mm3 (4.4-11.0)
[2024-02-21 15:23] LABS: International Normalized Ratio 1.1; Partial Thromboplast Time 28.2 Seconds (24.1-36.2); Prothrombin Time (Protime)PT. 13.7 SECONDS (11.7-14.9)
[2024-02-21 15:41] LABS: AST(SGOT) 12 U/L (15-37); Alanine Aminotransfer ALT/SGPT 26 U/L (13-56); Alkaline Phosphatase 62 U/L (45-117); Bilirubin, Direct 0.07 mg/dL (0.00-0.30); Globulin 3.5 g/dL (2.2-4.2); Magnesium 2.3 mg/dL (1.6-2.6); Protein, Total 7.5 g/dL (6.4-8.2)
[2024-02-29] VITALS (17 sets, daily range): BP systolic 98–124; BP diastolic 57–91; PULSE 71–108; RESP 16; TEMP 35.8–36.7; O2SAT 94–100; BMI 30.7
--- OUTSIDE RECORDS SUMMARY | 2024-02-29 06:42 | XMS RPT_ITS | CCD ---
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 The history isprovided by the patient. No spanish medical interpreter was used.Sore ThroatAssociated symptoms include headaches. Pertinent negatives include no abdominalpain, congestion, coughing, diarrhea, ear pain, shortness of breath orvomiting.HPI Ed Lamb is a 21 year old female who presents today for CC of sorethroat This started over the past 24 hours She is also having fatigue,headache, and fever. Symptoms are worsened by swallowing. She has triedtylenol with slight relief Risk factors niece has been ill. PMH strep in pastBP 106/62 Pulse 78 Temp 37 ?C (98.6 ?F) (Tympanic) Resp 16 Wt 66.2 kg(146 lb)ALLERGIESNo Known AllergiesACTIVE PROBLEM LISTRegional Enteritis of Unspecified SiteArthropathy Associated With Gastrointestinal Conditions Other ThanInfections(713.1)Hyperm obility SyndromeArthralgiaNo family history on file.Social History Marital status: Single Spouse name: Years of education: Number of children:Social History Main Topics Smoking status: Passive Smoke Exposure - Never Smoker Packs/day: 0.00 Years: 0.00Review of SystemsConstitutional: Positive for fever (100-102 last evening) and malaise/fatigue.Negative for chills.HENT: Positive for sore throat. Negative for congestion and ear pain.Respiratory: Negative for cough, sputum production, shortness of breath andwheezing.Cardiovascular: Negative for chest pain.Gastrointestinal: Negative for abdominal pain, diarrhea, nausea and vomiting.Musculoskeletal: Positive for myalgias.Skin: Negative for rash.Neurological: Positive for headaches.Physical ExamConstitutional: She is oriented to person, place, and time and well-developed,well-nourish ed, and in no distress.HENT:Head: Normocephalic and atraumatic.Right Ear: Tympanic membrane, external ear and ear canal normal. Tympanicmembrane is not injected, not erythematous, not retracted and not bulging. Nomiddle ear effusion.Left Ear: Tympanic membrane, external ear and ear canal normal. Tympanicmembrane is not injected, not erythematous, not retracted and not bulging. Nomiddle ear effusion.Nose: Nose normal. Right sinus exhibits no maxillary sinus tenderness and nofrontal sinus tenderness. Left sinus exhibits no maxillary sinus tenderness andno frontal sinus tenderness.Mouth/Throat: Uvula is midline and mucous membranes are normal. Posteriororopharyngeal edema and posterior oropharyngeal erythema present. Nooropharyngeal exudate or tonsillar abscesses.Eyes: Conjunctivae and EOM are normal. Pupils are equal, round, and reactive tolight.Neck: Normal range of motion. Neck supple.Pulmonary/Chest: Effort normal.Lymphadenopathy: Head (right side): No submental, no submandibular, no tonsillar, nopreauricular and no posterior auricular adenopathy present. Head (left side): No submental, no submandibular, no tonsillar, nopreauricular and no posterior auricular adenopathy present. She has cervical adenopathy. Right cervical: Superficial cervical adenopathy present. Left cervical: Superficial cervical adenopathy present. Right: No supraclavicular adenopathy present. Left: No supraclavicular adenopathy present.Neurological: She is alert and oriented to person, place, and time.Skin: Skin is warm and dry.Psychiatric: Affect normal.Nursing note and vitals reviewed.ASSESSMENT/PLAN:1. Acute pharyngitis, unspecified etiology - ICD9: 462, ICD10: J02.9 (primarydiagnosis)- suspect viral- Rapid Strep negative in the office today- overnight throat culture pending, Only call if Strep culture is positive.- Discussed supportive care treatment with fluids, rest and tylenol andibuprofen as needed.- The patient may also use warm salt water gargles, throat lozenges and/or OTCthroat spray as needed.- The patient should follow up in one week if symptoms persist or worsen2. Sore throat - ICD9: 462, ICD10: J02.9- GROUP A STREPTOCOCCUS BY PCR- RAPID STREP TEST B/ODiagnosis and treatment plan were discussed and questions were answered to thepatient's satisfaction. Pt acknowledged understanding of concepts and follow upplan.Specific signs and symptoms that would indicate the need for higher level ofcare were discussed in detail warranting prompt ER evaluation.Cindy Bass CNP 01/12/2017 6:17 PM SignedASSESSMENT/PLAN:1. Acute pharyngitis, unspecified etiology - ICD9: 462, ICD10: J02.9 (primarydiagnosis)- suspect viral- Rapid Strep negative in the office today- overnight throat culture pending, Only call if Strep culture is positive.- Discussed supportive care treatment with fluids, rest and tylenol andibuprofen as needed.- The patient may also use warm salt water gargles, throat lozenges and/or OTCthroat spray as needed.- The patient should follow up in one week if symptoms persist or worsen2. Sore throat - ICD9: 462, ICD10: J02.9- GROUP A STREPTOCOCCUS BY PCR- RAPID STREP TEST B/OReferring Provider: SELF [200]Allergies As of Date: 01/12/2017(No Known Allergies)Date Reviewed: 01/12/2017Reviewed by: Aylsa SerraHoly Family HospitalMazin Man - Fully AssessedReason for Visit: Sore Throat [200] Cmt: x 24 hoursPrimary Visit Diagnosis:Acute pharyngitis, unspecified etiology [J02.9] Other Visit Diagnosis:Sore throat [J02.9]Order(s):GROUP A STREPTOCOCCUS BY PCR [SQGASPCR] Order #: [id number] RAPID STREP TEST B/O [[id number]] Order #: [id number] as of 01/12/2017 Sig: SERTRALINE 50 MG TABLET take 1/2 tablet by mouth once* OXYCODONE 5 MG TABLET FERROUS GLUCONATE 324 MG (38 * IBUPROFEN 800 MG TABLET SIMILAC ORAL Take by mouth once daily.Medication notes this encounter SERTRALINE 50 MG TABLET >> Mandi Burris Ma 01/12/2017 5:58 PM >> MARCK WASHINGTON MANDI Jovita Jan 12, 2017 5:58 PM Received from: External Pharmacy OXYCODONE 5 MG TABLET >> Mandi Burris Ma 01/12/2017 5:57 PM >> MARCK WASHINGTON MANDI Hussein Jan 12, 2017 5:57 PM done FERROUS GLUCONATE 324 MG (38 MG IRON) TABLET >> Mandi Burris Ma 01/12/2017 5:57 PM >> MARCK WASHINGTON MANDI Cervantesosito Jan 12, 2017 5:57 PM done IBUPROFEN 800 MG TABLET >> Mandi Burris Ma 01/12/2017 5:57 PM >> MARCK WASHINGTON MANDI Hussein Jan 12, 2017 5:57 PM doneProblem List As Of Date 01/12/2017 Noted Resolved REGIONAL ENTERITIS NOS [K50.90] INVALID FOR* ARTHROP W NONINFEC GI DIS [K63.9, M07.60] INVALID FOR* HYPERMOBILITY SYNDROME [M35.7] INVALID FOR* Arthralgia [M25.50] INVALID FOR* Other instructions from your clinician: ASSESSMENT/PLAN: 1. Acute pharyngitis, unspecified etiology - ICD9: 462, ICD10: J02.9 (primary diagnosis) - suspect viral - Rapid Strep negative in the office today - overnight throat culture pending, Only call if Strep culture is positive. - Discussed supportive care treatment with fluids, rest and tylenol and ibuprofen as needed. - The patient may also use warm salt water gargles, throat lozenges and/or OTC throat spray as needed. - The patient should follow up in one week if symptoms persist or worsen 2. Sore throat - ICD9: 462, ICD10: J02.9 - GROUP A STREPTOCOCCUS BY PCR - RAPID STREP TEST Javi/Marisela Man CNP Ur[facility] [address] [facility] [address]Nxol: [phone]/12/2017Ed Lamb[address] [facility] [address]Xo Whom it May Concern:This is to certify that Ed Lamb was seen at our office for medicalcare. Ed may return to work on 01.13.2017.If you have any questions please feel free to call.Sincerely:Alysa Man CNPEncounter Number: [id number] Status:Closed by ALYSA MAN CNP on 01/12/17 [facility] Group A Strep by PCRon 01-12 GAS Specimen Source Throat Swab [facility] Comment on above: Performed By: #### GASPCR ####[facility] [address] [place], [place] [phone] Group A Strep PCR Negative [facility] Comment on above: Result Comment: This test was developed and its performance characteristics determined by [facility]'s [facility] [place] ([facility]).It has not been cleared or approved by the FDA. [facility] is regulated under CLIA as qualified to perform high-complexity testing. This test is used for clinical purposes. It should not be regarded as investigational or for research. Performed By: #### G ASPCR ####[facility] [address] [place], [place] [phone] PROGRESSon 01-12-2017 PROGRESS HNO ID: [id number] thor: Alysa Nur) CaitlinkService: (none)Author Type: Nurse PractitionerType: Progress NotesFiled: 01/12/2017 6:20 PMNote Text:Patient is a 21 year old female presenting with sore throat. The historyis provided by the patient. No spanish medical interpreter was used.Sore ThroatAssociated symptoms include headaches. Pertinent negatives include noabdominal pain, congestion, coughing, diarrhea, ear pain, shortness ofbreath or vomiting.HPI Ed Lamb is a 21 year old female who presents today for CC ofsore throat This started over the past 24 hours She is also havingfatigue, headache, and fever. Symptoms are worsened by swallowing. Shehas tried tylenol with slight relief Risk factors niece has been ill.PMH strep in pastBP 106/62 Pulse 78 Temp 37 ?C (98.6 ?F) (Tympanic) Resp 16 Wt 66.2kg (146 lb)ALLERGIESNo Known AllergiesACTIVE PROBLEM LISTRegional Enteritis of Unspecified SiteArthropathy Associated With Gastrointestinal Conditions Other ThanInfections(713.1)Hyperm obility SyndromeArthralgiaNo family history on file.Social History Marital status: Single Spouse name: Years of education: Number of children:Social History Main Topics Smoking status: Passive Smoke Exposure - Never Smoker Packs/day: 0.00 Years: 0.00Review of SystemsConstitutional: Positive for fever (100-102 last evening) andmalaise/fatigue. Negative for chills.HENT: Positive for sore throat. Negative for congestion and ear pain.Respiratory: Negative for cough, sputum production, shortness of breathand wheezing.Cardiovascular: Negative for chest pain.Gastrointestinal: Negative for abdominal pain, diarrhea, nausea andvomiting.Musculoskeletal : Positive for myalgias.Skin: Negative for rash.Neurological: Positive for headaches.Physical ExamConstitutional: She is oriented to person, place, and time andwell-developed, well-nourished, and in no distress.HENT:Head: Normocephalic and atraumatic.Right Ear: Tympanic membrane, external ear and ear canal normal. Tympanicmembrane is not injected, not erythematous, not retracted and not bulging.No middle ear effusion.Left Ear: Tympanic membrane, external ear and ear canal normal. Tympanicmembrane is not injected, not erythematous, not retracted and not bulging. No middle ear effusion.Nose: Nose normal. Right sinus exhibits no maxillary sinus tenderness andno frontal sinus tenderness. Left sinus exhibits no maxillary sinustenderness and no frontal sinus tenderness.Mouth/Throat: Uvula is midline and mucous membranes are normal. Posteriororopharyngeal edema and posterior oropharyngeal erythema present. Nooropharyngeal exudate or tonsillar abscesses.Eyes: Conjunctivae and EOM are normal. Pupils are equal, round, andreactive to light.Neck: Normal range of motion. Neck supple.Pulmonary/Chest: Effort normal.Lymphadenopathy: Head (right side): No submental, no submandibular, no tonsillar, nopreauricular and no posterior auricular adenopathy present. Head (left side): No submental, no submandibular, no tonsillar, nopreauricular and no posterior auricular adenopathy present. She has cervical adenopathy. Right cervical: Superficial cervical adenopathy present. Left cervical: Superficial cervical adenopathy present. Right: No supraclavicular adenopathy present. Left: No supraclavicular adenopathy present.Neurological: She is alert and oriented to person, place, and time.Skin: Skin is warm and dry.Psychiatric: Affect normal.Nursing note and vitals reviewed.ASSESSMENT/PLAN:1. Acute pharyngitis, unspecified etiology - ICD9: 462, ICD10: J02.9(primary diagnosis)- suspect viral- Rapid Strep negative in the office today- overnight throat culture pending, Only call if Strep culture ispositive.- Discussed supportive care treatment with fluids, rest and tylenol andibuprofen as needed.- The patient may also use warm salt water gargles, throat lozengesand/or OTC throat spray as needed.- The patient should follow up in one week if symptoms persist or worsen2. Sore throat - ICD9: 462, ICD10: J02.9- GROUP A STREPTOCOCCUS BY PCR- RAPID STREP TEST B/ODiagnosis and treatment plan were discussed and questions were answered tothe patient's satisfaction. Pt acknowledged understanding of concepts andfollow up plan.Specific signs and symptoms that would indicate the need for higher levelof care were discussed in detail warranting prompt ER evaluation.Alysa Man CNP [facility] CNOVon 11-02-2016 CNOV Office Visit ([facility]) -------ED LAMB ([id number]) 1995 FDate Time Provider Department11/02/16 5:00 PM MARCOS EVANS [facility] During your visit today, we recorded the following information about you: Temperature Pulse Respiration Blood pressure 99 degrees 78/minute 14/minute 120/80 Weight 71.2 kgMarcos Evans MD 11/02/2016 5:28 PM SignedPatient presents with:UTI: burning with urination x 3 daysHPI:Symptoms for 3 days.Dysuria: YesFrequency: NoHematuria: 2 weeks agoNausea: NoFever or chills: NoBack pain: NoAbdominal pain: NoPrior UTI: NoPersonal history of kidney stones: NoMEDICATIONS:Current Outpatient Prescriptions:oxyCODONE IR (ROXICODONE) 5 mg immediate release tabletFerrous Gluconate (FERGON) 324 mg (38 mg iron) tabletibuprofen (MOTRIN) 800 mg tabletPNV#102/IRON/FA/DHA/L UTEIN (SIMILAC ORAL) Take by mouth once daily.No current facility-administered medications for this visit.ALLERGIES:ALLERGIESNo Known AllergiesVITALS:BP 120/80 Pulse 78 Temp 37.2 ?C (99 ?F) (Tympanic) Resp 14 Wt 71.2 kg(157 lb)PHYSICAL EXAM: GEN: NAD HEENT: EOMI, conjunctiva clear, moist mucous membranes HEART: regular rate and rhythm, no murmurs LUNGS: clear to auscultation, no wheezes or crackles, no increased WOB ABDOMEN: Soft, nondistended, no masses, no suprapubic tenderness BACK: No CVA tendernessASSESSMENT/PLAN:1 . Burning with urination - ICD9: 788.1, ICD10: R30.0- UA positive for tahir esterase and hematuria.- UA DIP B/O- URINE CULTURE- CEPHALEXIN 500 MG CAPSULE - breast feeding.Marcos Evans, MDReferring Provider: SELF [200]Allergies As of Date: 11/02/2016(No Known Allergies)Date Reviewed: 11/02/2016Reviewed by: Kwaku Michelle Cma - Fully AssessedReason for Visit: UTI [116] Cmt: burning with urination x 3 daysPrimary Visit Diagnosis:Burning with urination [R30.0]Order(s):UA DIP B/O [[id number]] Order #: [id number] URINE CULTURE [SQURCUL] Order #: [id number] cephALEXin (KEFLEX) 500 mg capsuleTake 1 capsule by mouth twice daily for 7 days.Disp: 14 capsuleRfl: 0Prescriptions as of 11/02/2016 Sig: OXYCODONE 5 MG TABLET FERROUS GLUCONATE 324 MG (38 * IBUPROFEN 800 MG TABLET CEPHALEXIN 500 MG CAPSULE Take 1 capsule by mouth twice* SIMILAC ORAL Take by mouth once daily.Medication notes this encounter SIMILAC ORAL >> Kwaku Michelle Cma 11/02/2016 4:55 PM >> KWAKU MICHELLE CMA Nov 02, 2016 4:55 PM Not takingProblem List As Of Date 11/02/2016 Noted Resolved REGIONAL ENTERITIS NOS [K50.90] INVALID FOR* ARTHROP W NONINFEC GI DIS [K63.9, M07.60] INVALID FOR* HYPERMOBILITY SYNDROME [M35.7] INVALID FOR* Arthralgia [M25.50] INVALID FOR*Prescriptions ordered this encounter Disp Refills Start End CEPHALEXIN 500 MG CAPSULE 14 c* 0 11/02/2016 11/09/2016 Route: ORAL Sig: Take 1 capsule by mouth twice daily for 7 days. Status:Closed by MARCOS EVANS MD on 11/02/16 [facility] PROGRESSon 11-02-2016 PROGRESS HNO ID: [id number] thor: Marcos Diazervice: (none)Author Type: PhysicianType: Progress NotesFiled: 11/02/2016 5:28 PMNote Text:Patient presents with:UTI: burning with urination x 3 daysHPI:Symptoms for 3 days.Dysuria: YesFrequency: NoHematuria: 2 weeks agoNausea: NoFever or chills: NoBack pain: NoAbdominal pain: NoPrior UTI: NoPersonal history of kidney stones: NoMEDICATIONS:Current Outpatient Prescriptions:oxyCODONE IR (ROXICODONE) 5 mg immediate release tabletFerrous Gluconate (FERGON) 324 mg (38 mg iron) tabletibuprofen (MOTRIN) 800 mg tabletPNV#102/IRON/FA/DHA/L UTEIN (SIMILAC ORAL) Take by mouth oncedaily.No current facility-administered medications for this visit.ALLERGIES:ALLERGIESNo Known AllergiesVITALS:BP 120/80 Pulse 78 Temp 37.2 ?C (99 ?F) (Tympanic) Resp 14 Wt 71.2kg (157 lb)PHYSICAL EXAM: GEN: NAD HEENT: EOMI, conjunctiva clear, moist mucous membranes HEART: regular rate and rhythm, no murmurs LUNGS: clear to auscultation, no wheezes or crackles, no increased WOB ABDOMEN: Soft, nondistended, no masses, no suprapubic tenderness BACK: No CVA tendernessASSESSMENT/PLAN:1 . Burning with urination - ICD9: 788.1, ICD10: R30.0- UA positive for tahir esterase and hematuria.- UA DIP B/O- URINE CULTURE- CEPHALEXIN 500 MG CAPSULE - breast feeding.Marcos Evans MD [facility] Urine Cultureon 11-02-2016 Urine culture, bacteria Sp. Request/Comment: - Specimen received in preservative Culture Result - No growth (<1,000 CFU/ml) [facility] Comment on above: Performed By: #### URCUL ####[facility] [place], [place] [phone] Encounters Encounter Date Encounter Type Care Provider Facility Start: 01-12-2017 End: 01-14-2017 Ambulatory ALYSA (LILLIANA) FREDA [facility] Start: 11-02-2016 End: 11-05-2016 Ambulatory MARCOS EVANS [facility] Summary Purpose Family History No Family History Records Found Advance Directives No Advanced Directives Records Found Additional Source Comments INFORMATION SOURCE (unrecogn ized section and content) DATE CREATED AUTHOR 10/27/2017 [facility] FOR RECORDS PERTAINING TO PATIENTS WHO ARE [...] BE BASED ON THE PRIMARY CLINICAL RECORDS. [facility] provides no warranty or guarantee of the accuracy or completeness of information in this document.
[2024-02-29 07:15] LABS: Internal QC Validated? YES +Cl - CLEAR BKGD; Pregnancy, Urine Negative Negative
[2024-02-29] MEDS: Lactated Ringers 1,000 ML 15 ML IV ×2 (07:24→13:17)
[2024-02-29] MEDS: dexAMETHasone 4 MG/ML Vial 8 MG IV (07:25)
[2024-02-29] MEDS: Acetaminophen 500 MG Tablet 1000 MG PO (07:27)
[2024-02-29] MEDS: Celecoxib 200 MG Capsule 400 MG PO (07:27)
[2024-02-29] MEDS: Phenazopyridine 95 MG Tablet 190 MG PO (07:28)
[2024-02-29] MEDS: Gabapentin 600 MG Tablet PO (07:28)
[2024-02-29] MEDS: Scopolamine 1mg/72hr Patch 1 PATCH TD (07:30)
[2024-02-29 07:33] LABS: Hemoglobin 12.5 g/dL (12.0-15.0); Mean Corp Hgb Conc 34.7 g/dL (32-36); Mean Corpuscular Hgb 27.7 pg (27.0-32.0); Mean Corpuscular Volume 79.8 fL (81-99); Mean Platelet Vol. 10.7 fl (6.2-12.0); Platelet Count 307 K/mm3 (150-450); RBC Distribution Width CV 13.2 % (11.6-14.6); RBC Distribution Width SD 37.3 fl (35.1-43.9); Red Blood Count 4.51 M/mm3 (4.2-5.4); White Blood Count 8.4 K/mm3 (4.4-11.0)
[2024-02-29] MEDS: Magnesium 1 GM over 15 mins IV (07:33)
--- NOTE | 2024-02-29 07:54 | PRE.ANES_ITS ---
ASA Classification* ASA Classification ASA Classification: 2 Assessment & Plan Anesthesia* Anesthesia Assessment Anesthesia Assessment: Discussed sedation and/or anesthesia options, risks, benefits, and alternatives with patient/parents/legal guardian/POA. Questions invited. The patient/parents/legal guardian/POA seems to understand and agrees to proceed with anesthesia plan. Reviewed the physical assessment, medical history, allergy history and patient home medications list prior to surgery/procedure/anesthetic and documented any changes. Performed airway and anesthesia risk assessments. Anesthesia Type Anesthesia Type: General (SEE WRITTEN PRE ANESTHESIA RECORD FOR FULL ASSESSMENT) Anesthesia Focused Assessment* Temperature: 98.0 F Pulse Rate: 88 Blood Pressure: 105/66 Respiratory Rate: 16 Pulse Ox: 100 Airway Assessment Mouth opens: >3 cm Mallampati Score: II Focused Labs Anesthesia Preop lab: CBC WBC 8.4 K/mm3 (4.4-11.0) 02/29/24 07:10 RBC 4.51 M/mm3 (4.2-5.4) 02/29/24 07:10 Hgb 12.5 g/dL (12.0-15.0) 02/29/24 07:10 Hct 36.0 % (37-47) L 02/29/24 07:10 Plt Count 307 K/mm3 (150-450) 02/29/24 07:10 CHEMISTRY Potassium 4.2 mmol/L (3.5-5.1) 11/15/23 11:25 Sodium 141 mmol/L (136-145) 11/15/23 11:25 Magnesium 2.3 mg/dL (1.6-2.6) 02/21/24 14:46 BUN 10 mg/dL (7-18) 11/15/23 11:25 Creatinine 0.74 mg/dL (0.55-1.02) 11/15/23 11:25 Glucose 92 mg/dL (74-106) 11/15/23 11:25 TSH 1.54 uIU/mL (0.358-3.74) 11/15/23 11:25 COAG PT 13.7 SECONDS (11.7-14.9) 02/21/24 14:46 HCG, Quant 2133 mIU/mL (1-3) H 04/15/20 16:50 Urine Test Negative Negative 02/29/24 06:47 Tst Clinic Negative 01/19/24 14:33 Pre-Assessment Diagnosis/Proposed Procedure Planned Operative Procedure(s): TOTAL ROBOTIC HYSTERECTOMY BSO CYSTO Anesthesia History 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 When Was Last Pacemaker Check QUESTION #4 FULL TEXT: You/Your Family Experience fever (hyperthermia) with Anesthesia Last Oral Intake Last Oral intake: Last Oral Intake NPO since 04:30 02/29/24 07:04 Meds taken in AM with sips of water? Meds patient instructed to take am of surgery PONV PONV - shoe repairer helper: PONV - shoe repairer helper Female Yes 02/15/24 09:39 HX of Motion Sickness No 02/15/24 09:39 HX of N/V After Surgery No 02/15/24 09:39 Non-Smoker Yes 02/15/24 09:39 Duration of Surgery greater Yes 02/15/24 09:39 than 60 minutes Number of Risk Factors 3 02/15/24 09:39 PONV Score Moderate Risk 02/15/24 09:39 Height & Weight Height & Weight: Anesthesia: Height & Weight Height 5 ft 3 in 02/29/24 07:04 Weight: 78.8 kg 02/29/24 07:04 Body Mass Index (BMI) 30.7 02/29/24 07:04 Respiratory Assessment Respiratory Assessment - shoe repairer helper: Respiratory Tract Infection Hx - shoe repairer helper Hx Respiratory Tract Infection No 02/15/24 09:39 STOP Sleep Apnea STOP Sleep Apnea - shoe repairer helper: STOP Sleep Apnea - shoe repairer helper Hx Hypertension No 02/15/24 09:39 Hx Sleep Apnea No 02/15/24 09:39 CPAP BIPAP Do you snore loudly (louder No 02/15/24 09:39 than talking or can be heard Do you often feel tired/ No 02/15/24 09:39 fatigued/ sleepy during daytime? Has anyone observed you stop No 02/15/24 09:39 breathing during sleep? STOP Results Negative 02/15/24 09:39 QUESTION #5 FULL TEXT : Do you snore loudly (louder than talking or can be heard through closed doors)? 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 Specify any problems Hx of Preganancy in last 3 No 02/15/24 09:39 Months Nurse Filling Out Transfusion DSCHRIBER 02/15/24 09:39 & Questions: Date: 02/15/24 02/15/24 09:39 Time: 09:40 02/15/24 09:39 Patient unable to answer at this time (ie. confused, unrespo /Reproduction History /Reproductive History - shoe repairer helper: /Reproductive Hx- shoe repairer helper Hx Now No 02/15/24 09:39 Gestational Age (in weeks): EDC: Hx Hx Para Hx Section SAB No 02/15/24 09:39 Active Medications Active Medications: Current Medications Generic Name Dose Route Start Last Admin Trade Name Freq PRN Reason Stop Dose Admin Acetaminophen 1,000 mg 02/29/24 08:25 02/29/24 07:27 Acetaminophen 500 Mg Tablet PO 02/29/24 08:26 1,000 mg PREOP ONE Administration Celecoxib 400 mg 02/29/24 08:25 02/29/24 07:27 Celecoxib 200 Mg Capsule PO 02/29/24 08:26 400 mg X1 ONE Administration Dexamethasone Sodium Phosphate 8 mg 02/29/24 08:25 02/29/24 07:25 Dexamethasone 4 Mg/Ml Vial IV 02/29/24 08:26 8 mg X1 ONE Administration Gabapentin 600 mg 02/29/24 08:25 02/29/24 07:28 Gabapentin 600 Mg Tablet PO 02/29/24 08:26 600 mg PREOP ONE Administration Lactated Ringer's 1,000 mls @ 40 mls/hr 02/29/24 08:25 IV .Q25H TERESA Cefazolin Sodium 2 gm/ N/A 20 mls @ 400 mls/hr 02/29/24 08:25 IV 02/29/24 08:27 PREOP ONE Magnesium Sulfate 1 gm/ 102 mls @ 408 mls/hr 02/29/24 08:25 02/29/24 07:33 Dextrose IV 02/29/24 08:39 408 mls/hr X1 ONE Administration Lactated Ringer's 1,000 mls @ 15 mls/hr 02/29/24 06:45 02/29/24 07:24 IV 03/05/24 20:04 15 mls/hr .Q48H TERESA Administration Protocol Insulin Human Lispro 0 unit 02/29/24 08:25 Insulin Lispro 100 Unit/Ml Insuln.Pen SC 02/29/24 18:00 Q4H PRN PRN BG >/= 180, SEE PROTOCOL Protocol Ondansetron HCl 4 mg 02/29/24 08:25 Ondansetron 4 Mg/2 Ml Vial IV 02/29/24 08:26 X1 ONE Phenazopyridine HCl 190 mg 02/29/24 08:25 02/29/24 07:28 Phenazopyridine 95 Mg Tablet PO 02/29/24 08:26 190 mg X1 ONE Administration Scopolamine HBr 1 patch 02/29/24 08:25 02/29/24 07:30 Scopolamine 1mg/72hr Patch TD 02/29/24 08:26 1 patch X1 ONE Administration PFSH Medical History Low iron Easy bruising History of Crohn's disease Major depressive disorder VENU (generalized anxiety disorder) History of echocardiogram Wears glasses Non-smoker Abdominal pain Diarrhea Anxiety delivery delivered depression Home Medications ?Medication ?Instructions ?Recorded ?Last Taken ?Type ustekinumab 90 mg/mL subcutaneous 90 mg subcut Q4W #1 mL 02/24/23 Unknown Rx syringe (Stelara) topiramate 25 mg tablet (Topamax) 25 mg PO BID #60 tabs 01/31/24 Unknown Rx Allergy/AdvReac Type Severity Reaction Status Date / Time vortioxetine (From Allergy Mild Itching Verified 02/29/24 07:03 Trintellix) Family History Mother Diabetes Thyroid disorder Surgical History Hx of colonoscopy History of tonsillectomy Status post bilateral salpingectomy [place] teeth extracted deliv due to previous difficult deliv, deliv, curr hospitaliz Left ovarian cyst Social History household members: family number of children: 4 current occupational status: employed 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 Smoking Status: Never smoker alcohol intake: never substance use type: does not use caffeine: Yes Type: tea Number of servings: 1 seatbelt use: always do you feel safe at home: Yes additional social history: Alvin Ashton Review of Systems (Anesthesia) ROS Narrative System reviewed and no additional complaints, except as documented.
--- NOTE | 2024-02-29 07:55 | HP.PCM_ITS ---
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 Firer Helper Required: No Is patient in pain?: No Allergies vortioxetine (From Trintellix) Allergy (Mild, Verified 02/07/24 10:08) Itching Medications ?Medication ?Instructions ?Recorded ?Confirmed ?Type ustekinumab 90 mg/mL subcutaneous 90 mg subcut Q4W #1 mL 02/24/23 02/07/24 Rx syringe (Stelara) tranexamic acid 650 mg tablet 1,300 mg (2 x 650 mg) PO TID 5 08/06/23 02/07/24 Rx days #30 tabs topiramate 25 mg tablet (Topamax) 25 mg PO BID #60 tabs 01/31/24 02/07/24 Rx Post menopausal: No Patient : No : No [facility] Medical History Major depressive disorder VENU (generalized anxiety disorder) History of echocardiogram Wears glasses Alcohol use Marijuana use PONV (postoperative nausea and vomiting) Non-smoker Abdominal pain Diarrhea Heart murmur Iron deficiency Insomnia Anxiety delivery delivered depression Surgical History History of tonsillectomy Status post bilateral salpingectomy [place] teeth extracted deliv due to previous difficult deliv, deliv, curr hospitaliz Left ovarian cyst Family History Mother Diabetes Thyroid disorder Social History household members: family number of children: 4 current occupational status: employed 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 Smoking Status: Never smoker alcohol intake: never substance use type: does not use caffeine: Yes Type: tea Number of servings: 1 seatbelt use: always do you feel safe at home: Yes additional social history: Alvin Daisha HPI Consult [facility] Details: ED MACE is a 28 year old (all sections) who presents for discussion about hysterectomy. She has a history of crohn's disease that is well managed. She has very heavy menses and states that she has to carry around extra clothing and wear extra protection. She tried the Mirena IUD and his caused bleeding and pain with sex. She then tried lysteda and she only had mild slowing of the bleeding after day 3 and severe headaches. After her IUD was removed she started having 3 periods in a month. Her TSH was noted to be within normal l imits in October. EMB was normal. Ultrasound showed the following: FINDINGS: UTERUS/CERVIX: Small nabothian cysts in the cervix. Anteverted. There is no uterine mass. The uterus measures 8.2 x 4.5 x 3.8 cm. The endometrial stripe measures 0.8 cm in thickness. RIGHT OVARY: Unremarkable. Blood flow is present in the right ovary. The right ovary measures 2.9 x 2.3 x 2.1 cm. LEFT OVARY: Unremarkable. Blood flow is present in the left ovary. The left ovary measures 3.5 x 2.0 x 1.3 cm. FREE FLUID: None. BLADDER: Unremarkable as visualized. Wall is normal thickness for degree of distention. US/Pelvic w/ Transvaginal IMPRESSION: No acute findings in the pelvis. History 4 Elective abortions Hx Para 3 Spontaneous abortions Hx # Term Pregnancies 4 Ectopic pregnancies Hx # Pregnancies Multiple births # of living children 4 Past Pregnancies Del. Date Name GA/Weeks Outcome Route Bth Weight Gen Labor Lgth Anesthesia Del Locatn Provider FOB 10/31/15 Luis F 40 live - full term 8 lb s 14 oz. Male general [facility] Dr Mejía 10/19/16 Med[place] 39 live - full term 8 lb s 1 oz. Female spinal [facility] Dr. Mejía 08/07/19 Viry 39 live - full term 9lbs Female spinal [facility] Dr. Orta 12/09/20 Rod 39 live - full term 8lbs 12oz Fe male 0 spinal [facility] Ada Delivery Date: 08/07/19 Last Updated by: Jess Cooper RLTCS, significant scar tissue, thin LAMBERTO Delivery Date: 12/09/20 Last Updated by: Ivy Patricia Scheduled RCD with tubal ligation. Uterine window noted. ROS Const ROS Unobtainable: All systems reviewed & are unremarkable except as noted in H Resp Resp: Reports system reviewed and no additional complaints, except as documented; Denies cough GI GI: Reports as per HPI Psych Psych: Reports system reviewed and no additional complaints, except as documented Exam Const General: cooperative, healthy appearing, comfortable and no acute distress Resp Effort & Inspection: normal respiratory effort Skin General: no rashes or lesions noted Psych Appearance: grossly normal Speech and Movement: speech and movement normal Coding Level of Care Code Off vis,est,level 4 Diagnoses Pelvic pain R10.2 Menorrhagia with irregular cycle N92.1 Menorrhagia type: with irregular cycle Assessment and Plan Assessment and Plan (1) Pelvic pain: Status: Acute (2) Menorrhagia: Status: Acute Qualifiers: Menorrhagia type: with irregular cycle Qualified Code(s): N92.1 - Excessive and frequent menstruation with irregular cycle Comment: s/p IUD removal/failed. OCP/Lysteda/failed. Normal US. EMB pending Declines further medication due to side effects. Proceed with [facility] per Dr Chauhan Plan After discussing the patient's diagnosis and treatment plan options, patient wishes to proceed with surgical management. I have discussed with the patient the risks, benefits, and alternatives of the procedure which include but are not limited to risks of anesthesia, bleeding, infection, possible damage to bowel, bladder, or surrounding vasculature which could lead to additional surgery to evaluate any complications. Patient agrees to procedure and wishes to proceed. ACOG/uptodate references given for additional information regarding procedure. plan is for total robotic hysterectomy, bilateral salpingectomy (what is left of tubes from prior salpingectomy), and cystoscopy.
[2024-02-29 08:07] LABS: Bedside Glucose 89 mg/dL (74-106)
--- NOTE | 2024-02-29 08:25 | CER_PTH ---
PATHOLOGY RESULTS PATIENT: ED MACE LOC: [facility] – [place] U#:[id number] AGE/SX: 28/F ROOM: RE02/29/[address]: Dr. Ling Chauhan DO : 1995 BED: DIS: 02/29/2024 SPEC #: [id number] RECD: 02/29/24 12:58 STATUS: ANYI SMALLS #: [id number] HARRY: 02/29/24 08:[address]: Ling Chauhan DEPT: SURGICAL PATHOLOGY RECD BY: Cy Dover ENTERED: 02/29/24 13:20 SP TYPE: CERV OTHR DR: Dr. Darek Mitchell MD Tissues: Uterine cervix, NOS Procedures: Surgery Specimen Level IV HEADER OPERATION: Laparoscopic robotic hysterectomy, cystoscopy PRE-OP DIAGNOSIS: Pelvic pain, menorrhagia TISSUE SUBMITTED: Cervix, uterus MICROSCOPIC DIAGNOSIS Uterus, cervix, hysterectomy: Cervix - Chronic cystic cervicitis and squamous metaplasia. Endometrium - Secretory endometrium. Myometrium - Focal minimal superficial adenomyosis. See comment. 03/01/2024 COMMENT Please make reference to previous specimen [id number] endometrial biopsy with diagnosis of proliferative endometrium. MICROSCOPIC DESCRIPTION Slides are reviewed. GROSS DESCRIPTION Received in fixative is one container labeled with the patient's name and designated uterus, cervix. The specimen consists of a hysterectomy specimen consisting of a uterus with cervix. The uterus with cervix weighs 94 gm and measures 8.5 x 6.0 x 4.5 cm. The serosal surface is focally ragged. The ectocervical mucosa is unremarkable. The external os is oval in contour. The endocervical canal measures 3.5 cm in length and the endocervical mucosa is plummer glistening and unremarkable. Sections of cervix reveals a few cysts filled with mucoid material. The endometrial cavity measures 4.5 cm in length and 3.0 cm in width. The endometrium is plummer, glistening without any mass lesions and measures 0.3 cm in thickness. Sections of the uterine wall do not reveal any mass lesions and measures 2.2cm in thickness. Forensic Scientist sections are submitted in six cassettes as follows: 1 - anterior cervix, 2 - posterior cervix, 3 & 4 - anterior uterine wall, 5 & 6 - posterior uterine wall. SJ: 02/29/2024 TC:5 CPT: 52461
--- NOTE | 2024-02-29 08:29 | PCM.DC ---
Discharge Instructions Diet Discharge Diet: No restrictions Activity May resume sexual activity in: 6 weeks Weight Bearing Status: Full weight bearing Dressing / Incision Call your doctor if your incision/area has: Continuous Slow Oozing, Sudden Increased Bleeding, Increased Pain/ Swelling, Increased Redness and Foul Smelling Discharge Call your doctor if you observe: Fever of 101 or Higher, Using more than 1 pad per hour, Shortness of breath, Chest pain and Uncontrolled pain Suture Line Care: Avoid Pulling/Pushing and Avoid Pinching/Bending Remove Dressing in: 1 week (if present) Cleanse incision/area with: Soap & Water and Keep Dressing Clean & Dry Follow Up Care Please Follow Up With: Ling Chauhan DO When: Call to make an appointment with your doctor for a postop visit in 2 and 6 weeks Test Results: Test results from this visit will be discussed in further detail at your follow-up appointment, if applicable. Discharge Plan Admission Primary Reason for Your Visit: hysterectomy Attending Provider: Ling Chauhan Primary Care Provider: Darek Mitchell Instructions Print Language: French Discharge Orders/Prescriptions Prescriptions: New ibuprofen 800 mg tablet 800 mg PO Q8H PRN (Reason: pain) Qty: 30 0RF oxycodone-acetaminophen [Percocet] 5-325 mg tablet 1 tab PO Q4H PRN (Reason: pain) 7 Days Qty: 30 0RF Rx Instructions: 1-2 tabs q 4 hrs as needed for pain Continued topiramate [Topamax] 25 mg tablet 25 mg PO BID Qty: 60 3RF Rx Instructions: take before breakfast and before dinner Stelara 90 mg/mL syringe 90 mg subcut Q4W Qty: 1 11RF Rx Instructions: inject one every four weeks r/t low serum concentrations Referrals / Follow Up: Darek Mitchell MD [Primary Care Provider] - Disposition Disposition (needs filled in before D/C Order can be placed): Home, Self Care
[2024-02-29] MEDS: Cefazolin 2 GM in Syringe IV (09:11)
[2024-02-29] MEDS: Bupivacaine 0.25% 30 ML Vial (09:40)
--- NOTE | 2024-02-29 10:39 | OP.PCM_ITS ---
Problems Associated Problem List Diagnoses (1) Pelvic pain: (2) Menorrhagia: Operative Report (Standard) Operative Information Surgery/Procedure Performed: TOTAL ROBOTIC HYSTERECTOMY, CYSTOSCOPY Surgeon: Ling Chauhan Date of Procedure: 02/29/24 Procedure Start Time: 09:36 Procedure Stop Time: 10:42 Pre-Operative Diagnosis: PELVIC PAIN, 4 PRIOR SECTIONS, MENORRHAGIA Post-Operative Diagnosis: PELVIC PAIN, 4 PRIOR SECTIONS, MENORRHAGIA Select all DRAINS/GRAFTS/IMPLANTS that apply: None Type of Anesthesia: General Special Medications: NONE Estimated Blood Loss: 30CC Fluids Replaced: 1000CC Specimen collected: Yes Description of specimen(s) removed: UTERUS AND CERVIX Description of surgery: Findings: 8CM size uterus, normal appearing ovaries and surgically absent tubes. Moderate adhesions of the anterior uterus to the bladder. On exploration of the abdominal cavity the uterus, adnexa, bowel, and liver were found to be normal. Cystoscopy showed no evidence of leaking at approximately 250 cc of normal saline, positive ureteral orifices and jet flow are seen and no suture material was appreciated in the bladder. Specimens removed: Uterus and cervix Reason for surgery: This is a 28-year-old G4, P4 who presented to my office with history of pelvic pain and heavy periods. The planned procedure is for a ro botic hysterectomy the risks benefits and alternatives were discussed with the patient the patient had a clear understanding of the procedure and a consent form was signed. Procedure: The patient was placed in the dorsal low lithotomy position and prepped and draped in the normal sterile fashion both abdominally and in the perineum. Her legs were placed in stirrups a Dior catheter was inserted into the urethra without difficulty. A weighted speculum was placed in the vagina and a single- tooth tenaculum was used to grasp the anterior lip of the cervix. An advincula uterine manipulator was inserted through the cervix without complication. It was then tied into place at the 2 and 10:00 locations on the cervix. Gloves were changed and attention was turned towards the abdomen. Approximately 23 cm above the pubic symphysis in the midline, and after Marcaine injection, a 8 mm incision was made. An 8 mm trocar was inserted through the laparoscope, then inserted into the abdomen under direct visualization using the laparoscope. Good abdominal placement was noted and no complications were appreciated. An air seal device was utilized to create pneumoperitoneum. At 12 cm lateral to the m idline on the left and right sides 8 mm accessory ports were placed. Next a left upper quadrant 8 mm accounting assistant port site was placed. The patient was placed in steep Trendelenburg position. The robot was docked. The hysterectomy was initiated first by taking down the round ligament on each side using the vessel sealer device. the broad ligament was then and taken down using the vessel sealer device. Next the bladder flap was taken down with careful dissection, starting laterally and working medially without complications. This was done using monopolar cautery to the level of the cervical vaginal junction. After the bladder flap was created, uterine vessels were then isolated and cauterized using the vessel sealer device and EndoShears. At this point the uterine vessels were taken down further starting from the ascending branch, dissecting along the edges of the cervix to the level of the cervical vaginal junction with hemostasis appreciated. The cervical vaginal flores ction was then using monopolar cautery in a circumferential pattern across the superior aspect of the cervix. The specimen was delivered through the vagina and sent to pathology. The remaining vaginal cuff was then closed using a V lock suture. This was performed in a running technique. Excellent hemostasis was obtained and good closure was noted. Irrigation was then performed. All operative sites were noted to be hemostatic. A cystoscopy was performed with a 70 degree cystoscope through the urethra into the bladder without complication. The bladder was instilled with approximately 250 cc of normal saline. Intraoperative images were made. Ureteral orifices and jets were identified. No suture material was appreciated in the bladder. The bladder was then drained and cystoscope was removed. The abdominal cavity was again examined using the laparoscope after the robot was undocked. All operative sites were noted to be hemostatic. The trochars were removed under direct visualization without complication and pneumoperitoneum was reduced. At this point the skin was then closed using 4-0 Monocryl subcuticular stitch and sealed with surgical glue. The patient tole rated the procedure well sponge lap and needle counts were correct x2 the patient was taken to the recovery room in stable condition. 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
--- NOTE | 2024-02-29 10:57 | PCM.POST.ANE ---
Anesthesia: Postop Eval I Current Vital Signs Temperature: 97 F Pulse Rate: 90 Blood Pressure: 104/62 Respiratory Rate: 16 Pulse Ox: 95 Oxygen Delivery Method: Nasal Cannula Oxygen Flow Rate (L/min): 6 Assessment Airway patent: Yes Spontaneous unlabored respirations: Yes Mental status: Asleep nausea: No Vomiting: No Anesthesia Complication: No Fluid Hydration Crystalloid volume administer (ml): 1,000 Total IV fluid infused: 1,000 Progress Note Anesthesia document: Postop Eval 1 completed: Yes
--- NOTE | 2024-02-29 11:56 | POSTOPAN2_ITS ---
Anesthesia Postop Eval I Sum Postop Eval Completion status Anesthesia document: Postop Eval 1 completed: Yes Anesthesia Postop Eval I Summary Anesthesia Postop Eval I Summary: Anesthesia Postop Eval I: Assessment Summary Airway patent Yes 02/29/24 11:01 MANAGING MEMBER.JONNAOBEstela Spontaneous unlabored Yes 02/29/24 11:01 MANAGING MEMBER.CANDICE respirations Mental status Asleep 02/29/24 11:01 MANAGING MEMBER.CANDICE nausea No 02/29/24 11:01 MANAGING MEMBER.CANDICE Vomiting No 02/29/24 11:01 MANAGING MEMBERRAINA Anesthesia Postop Eval I: Fluid Summary Crystalloid volume administer 1,000 02/29/24 11:01 MANAGING MEMBER.ACNDICE (ml) Colloids volume administered ( ml) Blood Product volume administered (ml) Total IV fluid infused 1,000 02/29/24 11:01 MANAGING MEMBER.CANDICE Anesthesia Postop Eval I: Summary Notes Anesthesia Complication No 02/29/24 11:01 GIL Anesthesia Complication Comment: Post-operative progress note Anesthesia: Postop Eval II Evaluation Mental status: Awake Pain Level: 0 nausea: No Vomiting: No
--- NOTE | 2024-02-29 11:56 | PCM.POSTANE2 ---
Anesthesia Postop Eval I Sum Postop Eval Completion status Anesthesia document: Postop Eval 1 completed: Yes Anesthesia Postop Eval I Summary Anesthesia Postop Eval I Summary: Anesthesia Postop Eval I: Assessment Summary Airway patent Yes 02/29/24 11:01 DERMATOLOGY NURSE PRACTITIONER.JONNAOBEstela Spontaneous unlabored Yes 02/29/24 11:01 DERMATOLOGY NURSE PRACTITIONER.CANDICE respirations Mental status Asleep 02/29/24 11:01 DERMATOLOGY NURSE PRACTITIONER.CANDICE nausea No 02/29/24 11:01 DERMATOLOGY NURSE PRACTITIONER.CANDICE Vomiting No 02/29/24 11:01 DERMATOLOGY NURSE PRACTITIONERRAINA Anesthesia Postop Eval I: Fluid Summary Crystalloid volume administer 1,000 02/29/24 11:01 DERMATOLOGY NURSE PRACTITIONER.CANDICE (ml) Colloids volume administered ( ml) Blood Product volume administered (ml) Total IV fluid infused 1,000 02/29/24 11:01 DERMATOLOGY NURSE PRACTITIONER.CANDICE Anesthesia Postop Eval I: Summary Notes Anesthesia Complication No 02/29/24 11:01 GIL Anesthesia Complication Comment: Post-operative progress note Anesthesia: Postop Eval II Evaluation Mental status: Awake Pain Level: 0 nausea: No Vomiting: No
== END 2024-02-29 16:57 | disposition home or self-care (01) ==
LOC: SDC 06:30 → AC 06:33
PROVIDERS: Anesthesiology; PCP Family Medicine; Referring Provider Obstetrics & Gynecology; Visit Provider Obstetrics & Gynecology
PROC: 0UT90ZZ Resection of Uterus, Open Approach (ICD-10-PCS; CPT 58570; principal; 2024-02-29 08:05)
DX: N92.1 Excessive and frequent menstruation with irregular cycle (principal); K50.90 Crohn's disease, unspecified, without complications; N32.89 Other specified disorders of bladder; F41.1 Generalized anxiety disorder; N73.6 Female pelvic peritoneal adhesions (postinfective); R10.2 Pelvic and perineal pain; Z90.79 Acquired absence of other genital organ(s); E66.3 Overweight; Z68.25 Body mass index [BMI] 25.0-25.9, adult; N72 Inflammatory disease of cervix uteri; F32.9 Major depressive disorder, single episode, unspecified
CPT/HCPCS: 58570; 52000; 00840; 36415; 80076; 81025; 82962; 83735; 85027; 85610; 85730; 86850; 86900; 86901; 88305; J7120; A4216; J2405; J3475

== ENCOUNTER → 2024-04-27 | Outpatient (CLI) | payer OTHER, SELFPAY ==
[2024-04-27 09:24] LABS: Erythrocyte Sedimentation Rate 2 mm/hr (0-30)
[2024-04-27 09:27] LABS: Absolute Lymphocyte Count 2.78 X10^3/uL (0.83-4.51); Absolute Neutrophil Count 3.3 X10^3/uL (2.0-7.7); Basophil# 0.07 X10^3/uL; Eosinophil# 0.44 X10^3/uL; Eosinophils% 6.2 % (0-5); Hematocrit 39.2 % (37-47); Hemoglobin 13.4 g/dL (12.0-15.0); Lymphocyte # 2.78 X10^3/ul (0.83-4.51); Lymphocyte % 39.4 % (19-41); Mean Corp Hgb Conc 34.2 g/dL (32-36); Mean Corpuscular Hgb 27.8 pg (27.0-32.0); Mean Corpuscular Volume 81.3 fL (81-99); Mean Platelet Vol. 10.7 fl (6.2-12.0); Monocyte# 0.42 X10^3/uL; Monocyte% 5.9 % (0-10); NRBC Flagged by Analyzer 0 % (0-5); Neutrophil # 3.33 X10^3/uL (2.7-7.7); Neutrophil % 47.2 % (47-70); Platelet Count 355 K/mm3 (150-450); RBC Distribution Width CV 13.2 % (11.6-14.6); RBC Distribution Width SD 38.6 fl (35.1-43.9); Red Blood Count 4.82 M/mm3 (4.2-5.4); White Blood Count 7.1 K/mm3 (4.4-11.0)
[2024-04-27 10:29] LABS: AST(SGOT) 27 U/L (15-37); Alanine Aminotransfer ALT/SGPT 49 U/L (13-56); Albumin, Serum 3.7 g/dL (3.2-5.0); Alkaline Phosphatase 65 U/L (45-117); Anion Gap 3 (5-15); BUN 8 mg/dL (7-18); BUN/Creat Ratio 10.9 RATIO (10-20); CRP 7.63 mg/L (0.0-3.0); Calcium,Total 9.2 mg/dL (8.5-10.1); Chloride 106 mmol/L (98-107); Creatinine, Serum 0.74 mg/dL (0.55-1.02); EST Glomerular Filtration Rate 100 mL/min (>60); Est Glom Filt Rate - Afr Amer 121 mL/min (>60); Globulin 3.8 g/dL (2.2-4.2); Glucose 94 mg/dL (74-106); Potassium 3.7 mmol/L (3.5-5.1); Protein, Total 7.5 g/dL (6.4-8.2); Sodium Level 139 mmol/L (136-145)
== END | disposition home or self-care (01) ==
PROVIDERS: PCP Family Medicine; Referring Provider Internal Medicine Gastroenterology; Visit Provider Internal Medicine Gastroenterology
DX: K50.00 Crohn's disease of small intestine without complications (principal); E66.89 Other obesity not elsewhere classified
CPT/HCPCS: 80053; 85025; 85652; 86140

== ENCOUNTER → 2024-10-24 | Outpatient (CLI) | payer OTHER, SELFPAY ==
[2024-10-24 10:46] LABS: Erythrocyte Sedimentation Rate < 1 mm/hr (0-30)
[2024-10-24 11:09] LABS: CRP 7.54 mg/L (0.0-3.0)
[2024-10-24 11:20] LABS: Anion Gap 11 (5-15); BUN 9 mg/dL (4-19); BUN/Creat Ratio 10.2 RATIO (10-20); Calcium,Total 9.4 mg/dL (7.6-11.0); Carbon Dioxide 22.5 mmol/L (21.0-32.0); Chloride 104 mmol/L (98-108); EST Glomerular Filtration Rate 90 (>60); Glucose 92 mg/dL (70-99); Potassium 4.2 mmol/L (3.3-5.1); Sodium Level 138 mmol/L (133-145)
== END | disposition home or self-care (01) ==
LOC: LAB 09:07
PROVIDERS: Nurse Practitioner Family; PCP Family Medicine; Referring Provider Internal Medicine Gastroenterology; Visit Provider Internal Medicine Gastroenterology
DX: K50.00 Crohn's disease of small intestine without complications (principal); E66.9 Obesity, unspecified
CPT/HCPCS: 36415; 80048; 84443; 85652; 86140

== ENCOUNTER → 2024-12-19 | Outpatient (CLI) | payer OTHER, SELFPAY ==
--- NOTE | 2024-12-19 08:45 | LES_PTH ---
PATIENT: [facility] LOC: [facility] U#:[id number] AGE/SX: 29/F ROOM: RE12/19/[address]: Dr. Ling Chauhan DO : 1995 BED: DIS: 12/19/2024 SPEC #: [id number] RECD: 12/19/24 15:46 STATUS: ANYI SLIM #: [id number] HARRY: 12/19/24 08:[address]: Ling Chauhan DEPT: SURGICAL PATHOLOGY RECD BY: Nasir Le ENTERED: 12/20/24 08:39 SP TYPE: Lesion OTHR DR: Dr. Darek Mitchell MD Tissues: A - Vagina, NOS Procedures: Surgery Specimen Level IV HEADER OPERATION: Vaginal biopsy PRE-OP DIAGNOSIS: Vaginal granulation tissue TISSUE SUBMITTED: A- Vaginal cuff MICROSCOPIC DIAGNOSIS A. Vagina, cuff, biopsy: * Polyp shaped piece of acutely inflamed granulation tissue with detached strips of squamous epithelium, benign MICROSCOPIC DESCRIPTION Slides are reviewed. GROSS DESCRIPTION A. Received in formalin labeled the patient's name and date of is a 0.3 x 0.3 x 0.1 cm plummer tissue fragment with flecks of plummer tissue, all measuring <0.1 cm. Entirely submitted in 1 cassette. Smaller fragments are unlikely to survive processing. NM 12/20/2024 CPT:32341
== END | disposition home or self-care (01) ==
PROVIDERS: PCP Family Medicine; Referring Provider Obstetrics & Gynecology; Visit Provider Obstetrics & Gynecology
DX: N84.2 Polyp of vagina (principal)
CPT/HCPCS: 88305